=== PATIENT | female | born 1975 | race Caucasian/White ===

== ENCOUNTER → 2016-04-08 | Outpatient (CLI) | payer SELFPAY ==
[~2016-04-08] MED LIST: CYCL10TA9 PO; FLUO40CA PO; GABA-488 PO; HYDR-2890 PO; HYDR-757 PO; IBUP800T26 PO; MELO-198 PO; NAPR500T PO; PRD20T PO; PRED10TA PO; PRED20TA PO; TRAM50TA2 PO; flexeril PO
--- OUTSIDE RECORDS SUMMARY | 2016-04-08 11:36 | XMS REPORT ---
Author Author JUAN PIERSON [facility] eClinicalWorks Address Unknown Phone Unavailable Care Team Providers Care Billiard Player Name Role Phone JUAN PIERSON CP Unavailable Allergies No Known Allergies Problems Problem Type Condition Code Onset Dates Condition Status Problem Unspecified backache 724.5 Active Problem Other chronic pain 338.29 Active Problem Unspecified episodic mood disorder 296.90 Active Problem Unspecified constipation 564.00 Active Problem Acquired cyst of kidney 593.2 Active Problem Cervicalgia 723.1 Active Problem Lumbago 724.2 Active Problem Cyst of thyroid 246.2 Active Medications Medication Code System Code Instructions Start Date End Date Status Dosage Adderall [facility] [address]-65 20 MG Orally twice a day Dec 23, 2014 1 tablet Results No Known Results Summary Purpose eClinicalWorks Submission
--- NOTE | 2016-04-08 12:27 | Diagnostic Imaging Report ---
CLINICAL INDICATION: Patient states she has history of cervical spine pain. Recently has increased cervical spine pain and pain shooting into both hands. EXAM: MRI of the cervical spine performed without IV contrast. Sequences include sagittal T2, sagittal T1, sagittal T2 fat-sat, and axial T2. COMPARISON: CT scan of the cervical spine dated 05/26/2015. FINDINGS: Limited visualization of the posterior fossa is unremarkable. Cervical spinal cord has normal anatomic appearance and signal. The cervical spine has normal alignment with no acute fracture or dislocation. The cervical vertebrae have normal T1-T2 signal. There are again seen small anterior disc spurs at the C3-C6 levels. C1-C2: There are mildly hypertrophic spurs involving the atlanto-odontoid interval anteriorly. C2-C3: There is a small posterior disc bulge and mild right facet arthropathy. There is no significant central spinal canal or neuroforaminal narrowing. There is mild ligamentum flavum buckling. C3-C4: There is a small anterior disc bulge. C4-C5: There is a small anterior disc protrusion/herniation and small posterior disc bulge. There is no significant central spinal canal or neuroforaminal narrowing. C5-C6: There is a mild diffuse disc bulge with bilateral uncinate spurs and small to moderate sized posterior disc osteophyte complex. There is mild to moderate central canal narrowing. There is mild to moderate bilateral neuroforaminal narrowing. C6-C7: There is a small central posterior disc protrusion/herniation. There is no significant central spinal canal or neuroforaminal narrowing. C7-T1: Unremarkable. IMPRESSION: 1: There is multilevel cervical spine degenerative disc disease, described in detail above. 2: There is a C5-C6 diffuse disc bulge, uncinate spurs, and posterior disc osteophyte complex which causes mild to moderate central canal narrowing and mild to moderate bilateral neuroforaminal narrowing. Dictated by: Dictated on workstation # [id number]
== END ==
LOC: RAD 11:32
PROVIDERS: ATTEND Nurse Practitioner Community Health
DX: M50.30 Other cervical disc degeneration, unspecified cervical region (principal)
CPT/HCPCS: 72141

== ENCOUNTER 2017-11-30 12:53 | Emergency (ER) | payer SELFPAY ==
[~2017-11-30] VITALS: Ht 172.7 cm; Wt 86.2 kg
[~2017-11-30 12:53] MED LIST changes: +NAPR-1071 PO; -NAPR500T PO
[2017-11-30] MEDS ORDERED: KETOROLAC 60 MG/2 ML VIAL IM ONE (13:15)
[2017-11-30] MEDS ORDERED: PROCHLORPERAZINE 10 MG/2ML INJ (COMPAZINE) IM ONE (13:15)
[2017-11-30] MEDS ORDERED: diphenhydrAMINE 50 MG/ML INJ (BENADRYL) IM ONE (13:15)
[2017-11-30] MEDS ORDERED: HYDR-4226 PO (13:17)
[2017-11-30] MEDS ORDERED: PRD20T PO (13:17)
--- NOTE | 2017-11-30 13:17 | ED Headache ---
General Chief Complaint: Head/Cervical Problems Stated Complaint: HEADACHE;NECK PAIN Source: patient Exam Limitations: no limitations History of Present Illness Date Seen by Provider: Nov 30, 2017 Time Seen by Provider: 13:12 Initial Comments To ER with reports of headache which is unusual for her. This is frontal in location began about 6:30 AM this morning. She does have associated nausea without vomiting. No fevers or chills. She does have neck pain which is chronic but a bit worse than usual. She reports tingling down both of her arms. No known injury. Timing/Duration: increasing Severity/Quality: constant Location: frontal Prior Headaches/Recent Trauma: no recent headache/trauma Associated Symptoms: nausea/vomiting Allergies and Home Medications Allergies Coded Allergies: No Known Drug Allergies (Unverified , 07/12/13) Home Medications Fluoxetine Hcl 40 Mg Capsule, 40 MG PO HS, (Reported) Hydrocodone/Acetaminophen 1 Each Tablet, 1 EACH PO Q6H PRN for PAIN-MODERATE Prescribed by: DOT FULTON on 11/30/177 Naproxen 500 Mg Tablet, 500 MG PO BID Prescribed by: DOT FULTON on 05/26/152135 Prednisone 20 Mg Tab, 40 MG PO DAILY Prescribed by: DOT FULTON on 11/30/17 1317 [flexeril] , 10 MG PO BID PRN for PAIN Prescribed by: DOT FULTON on 05/26/152135 Patient Home Medication List Home Medication List Reviewed: Yes Review of Systems Review of Systems Constitutional: see HPI; No chills, No fever Eyes: No Symptoms Reported Ears, Nose, Mouth, Throat: no symptoms reported Cardiovascular: no symptoms reported Musculoskeletal: see HPI, neck pain Skin: no symptoms reported Psychiatric/Neurological: See HPI, Headache Past Rksoowj-Kjdsfl-Ufmdib Hx Immunizations Up To Date Tetanus Booster (TDap): More than 5yrs Seasonal Allergies Seasonal Allergies: Yes Past Medical History Adenoidectomy, Tonsillectomy Asthma Reproductive Disorders: No Degenerate Disk Disease, Chronic Back Pain Loss of Vision: Denies Hearing Impairment: Denies Anxiety, Depression Adverse Reaction/Blood Tranf: No Family Medical History Alcoholism 19 MOTHER FH: emphysema 19 MOTHER No Pertinent Family Hx Physical Exam Vital Signs Capillary Refill : Height, Weight, BMI Height: 5'8" Weight: 190lbs. oz. 86.874045ju; 32.61 BMI Method:Stated General Appearance: WD/WN, mild distress (tearful) HEENT: PERRL/EOMI, normal ENT inspection, TMs normal Neck: non-tender, full range of motion Respiratory: normal breath sounds, no respiratory distress, no accessory muscle use Gastrointestinal: normal bowel sounds, non tender Extremities: normal range of motion, non-tender Psychiatric: alert, oriented x 3 Crainal Nerves: normal hearing, normal speech, PERRL Skin: normal color, warm/dry Progress/Results/Core Measures Results/Orders My Orders Orders - DOT FULTON APRN Ketorolac Injection (Toradol Injection) (11/30/17 13:15) Prochlorperazine Injection (Compazine In (11/30/17 13:15) Diphenhydramine Injection (Benadryl Inje (11/30/17 13:15) Ct Head Wo (11/30/17 13:04) Medications Given in ED Current Medications Medications Dose Ordered Sig/Kitty Route Start Time Stop Time Status Last Admin Dose Admin Diphenhydramine HCl 25 mg ONCE ONCE IM 11/30/17 13:15 11/30/17 13:16 DC 11/30/17 13:15 25 MG Ketorolac Tromethamine 60 mg ONCE ONCE IM 11/30/17 13:15 11/30/17 13:16 DC 11/30/17 13:16 60 MG Prochlorperazine Edisylate 10 mg ONCE ONCE IM 11/30/17 13:15 11/30/17 13:16 DC 11/30/17 13:16 10 MG Departure Communication (Admissions) 1400-her headache is down to a 7 out of 10 with occasional sharp spikes in pain that are brief and transient. She feels more relaxed overall. We will discharge to home. She has previously seen Dr. Terrazas from neurology for her neck. I did advise that she should call him today or tomorrow to make an appointment to be seen for follow-up. She agrees with this plan. Impression Primary Impression: Headache Additional Impression: Cervical radiculopathy Disposition: HOME, SELF-CARE Condition: Stable Departure-Patient Inst. Decision time for Depature: 13:15 Referrals: ANTONINO MAGANA DO (PCP) Primary Care Physician MACHO RANDOLPH (Family) Primary Care Physician Patient Instructions: HEADACHE, Radiculopathy Add. Discharge Instructions: 1. Return to ER for any concerns 2. Follow-up with your doctor next week 3. All discharge instructions reviewed with patient and/or family. Voiced understanding. Scripts Prednisone (Prednisone) 20 Mg Tab 40 MG PO DAILY, #8 TAB Prov: DOT FULTON APRN 11/30/17 Hydrocodone/Acetaminophen ([place] 5-325 Tablet) 1 Each Tablet 1 EACH PO Q6H PRN for PAIN-MODERATE MDD 10, #10 TAB Prov: DOT FULTON APRN 11/30/17 Work/School Note: Work Release Form Date Seen in the Emergency Department: Nov 30, 2017 Return to Work: Dec 02, 2017 DOT FULTON APRN Nov 30, 2017 13:17
--- OUTSIDE RECORDS SUMMARY | 2017-11-30 13:21 | XMS REPORT ---
Author Author DAVID GRAHAM Organization eClinicalWorks Address Unknown Phone Unavailable Care Team Providers Care Helicopter Repairer Name Role Phone DAVID GRAHAM CP Unavailable Allergies, Adverse Reactions, Alerts Substance Reaction Event Type N.K.D.A. Info Not Available Non Drug Allergy Problems Problem Type Condition Code Onset Dates Condition Status Problem Unspecified backache 724.5 Active Assessment Attention deficit disorder F90.0 Active Problem Other chronic pain 338.29 Active Problem Unspecified episodic mood disorder 296.90 Active Problem Unspecified constipation 564.00 Active Problem Acquired cyst of kidney 593.2 Active Problem Cervicalgia 723.1 Active Problem Lumbago 724.2 Active Problem Cyst of thyroid 246.2 Active Medications Medication Code System Code Instructions Start Date End Date Status Dosage Cymbalta [facility] [address]-76 60 MG Orally Once a day 1 capsule Adderall [facility] [address]-83 20 MG Orally twice a day Dec 23, 2014 1 tablet Procedures Procedure Coding System Code Date Office Visit, Est Pt., Level 4 CPT-4 34823 Jan 06, 2015 Vital Signs Date/Time: Jan 06, 2015 Cardiac Monitoring Heart Rate 78 bpm Weight 502.65 lbs Height 67 in BMI 78.72 Index Blood Pressure Diastolic 80 mmHg Blood Pressure Systolic 150 mmHg Results No Known Results Summary Purpose eClinicalWorks Submission
--- OUTSIDE RECORDS SUMMARY | 2017-11-30 13:21 | XMS REPORT ---
Author Author [facility] Medical Staff Organization [facility] Address [address] [place], [place] [address] Phone [phone] Care Team Providers Care Actuarial Internship Name Role Phone CHAVO OLIVER MD, PP [phone] CHAVO OLIVER MD, PP [phone] Summary purpose CCDA Sent to [facility] Chief Complaint and Reason for Visit Admit Diagnosis 1 rash behind lt ear Problem list No authorized problems tracked for continuity of care are available for this visit. Encounters No authorized problems tracked for encounter diagnoses are available for this visit. Medications No medications recorded for this patient visit Allergies, adverse reactions, alerts No allergy information is available for this patient. Immunizations No immunizations recorded for this patient visit Relevant diagnostic tests and/or laboratory data No authorized results are available for this patient visit History of procedures Procedure Code Code Type Description Date Performed Performing Physician J0696 CPT-4 CEFTRIAXONE SODIUM INJECTION 10-02-2016 ELISA LONG 66420 CPT-4 CULTURE, BACTERIA, OTHER 10-02-2016 ELISA LONG 00846 CPT-4 EMERGENCY DEPT VISIT 10-02-2016 ELISA LONG 03795 CPT-4 THER/PROPH/DIAG INJ, SC/IM 10-02-2016 ELISA LONG 71917 CPT-4 SMEAR, GRAM STAIN 10-02-2016 ELISA LONG 95701 CPT-4 CULTURE AEROBIC IDENTIFY 10-02-2016 ELISA LONG 35584 CPT-4 MICROBE SUSCEPTIBLE, OSWALDO 10-02-2016 ELISA LONG Functional status No functional or cognitive status observations are available for this visit. Vital signs No authorized vital signs are available for this visit. Social history No Social History or smoking status observations were recorded for this visit. ( Unknown if ever smoked.) Treatment Plan No treatment plan text is available for this visit. Hospital discharge instructions No discharge instruction text is available for this visit.
--- OUTSIDE RECORDS SUMMARY | 2017-11-30 13:21 | XMS REPORT ---
Author Author MACHO RANDOLPH [facility] eClinicalWorks Address Unknown Phone Unavailable Care Team Providers Care Home And Family Living Professor Name Role Phone MACHO RANDOLPH Unavailable Allergies, Adverse Reactions, Alerts Substance Reaction Event Type N.K.D.A. Info Not Available Non Drug Allergy Problems Problem Type Condition Code Onset Dates Condition Status Assessment Low back pain, unspecified back pain laterality, with sciatica presence unspecified M54.5 Active Problem Unspecified backache 724.5 Active Assessment Attention deficit disorder F90.0 Active Problem Other chronic pain 338.29 Active Problem Unspecified episodic mood disorder 296.90 Active Problem Unspecified constipation 564.00 Active Problem Acquired cyst of kidney 593.2 Active Problem Cervicalgia 723.1 Active Problem Lumbago 724.2 Active Problem Cyst of thyroid 246.2 Active Medications Medication Code System Code Instructions Start Date End Date Status Dosage Vyvanse [facility] [address]-79 30 MG Orally Once a day Dec 09, 2014 1 capsule in the morning Cymbalta [facility] [address]-67 60 MG Orally Once a day 1 capsule Procedures Procedure Coding System Code Date Office Visit, Est Pt., Level 3 CPT-4 21028 Dec 09, 2014 Vital Signs Date/Time: Dec 09, 2014 Temperature 98.4 F Weight 230 lbs Height 67 in BMI 36.02 Index Blood Pressure Diastolic 78 mmHg Blood Pressure Systolic 130 mmHg Cardiac Monitoring Heart Rate 70 bpm Results No Known Results Summary Purpose eClinicalWorks Submission
--- OUTSIDE RECORDS SUMMARY | 2017-11-30 13:21 | XMS REPORT ---
Author Author [facility] Medical Staff Organization [facility] Address [address] [place], [place] [address] Phone [phone] Summary purpose CCDA Sent to [facility] Chief Complaint and Reason for Visit No authorized Reason for Visit (Admitting Diagnosis) is available for this visit. Problem list No authorized problems tracked for [...] Code Type Description Date Performed Performing Physician 59604 CPT-4 EMERGENCY DEPT VISIT 10-02-2016 ELISA LONG Functional status No functional [...]
--- OUTSIDE RECORDS SUMMARY | 2017-11-30 13:21 | XMS REPORT ---
Author Author MACHO RANDOLPH [facility] eClinicalWorks Address Unknown Phone Unavailable Care Team Providers Care Heavy Duty Diesel Mechanic Name Role Phone MACHO RANDOLPH CP Unavailable Allergies No Known Allergies Problems Problem Type Condition Code Onset Dates Condition Status Problem Unspecified backache 724.5 Active Problem Other chronic pain 338.29 Active Problem Unspecified episodic mood disorder 296.90 Active Problem Unspecified constipation 564.00 Active Problem Acquired cyst of kidney 593.2 Active Problem Cervicalgia 723.1 Active Problem Lumbago 724.2 Active Problem Cyst of thyroid 246.2 Active Medications No Known Medications Results No Known Results Summary Purpose eClinicalWorks Submission
--- OUTSIDE RECORDS SUMMARY | 2017-11-30 13:22 | XMS REPORT ---
Author Author MACHO RANDOLPH [facility] Address [address] [place] [address] Care Team Providers Care Manufacturer Name Role Phone MACHO RANDOLPH Unavailable PROBLEMS Type Condition ICD9-CM Code [id number] Code Onset Dates Condition Status SNOMED Code Problem Unspecified backache 724.5 Active 814867580 Problem Lumbago with sciatica, right side M54.41 Active 863661662 Problem Lumbago with sciatica, left side M54.42 Active 718573468 Problem Dysthymia F34.1 Active 65388590 Problem Attention deficit hyperactivity disorder (ADHD), unspecified ADHD type F90.9 Active 311902369 Problem Other chronic pain G89.29 Active 96096972 Problem MDD (major depressive disorder), recurrent episode, mild F33.0 Active 31886782 ALLERGIES No Known Allergies SOCIAL HISTORY Never Assessed PLAN OF CARE Activity Details Follow Up 4 Weeks Reason:neck pain VITAL SIGNS Height 67 in 2016-04-04 Weight 226.5 lbs 2016-04-04 Temperature 98.5 degrees Fahrenheit 2016-04-04 Heart Rate 92 bpm 2016-04-04 Respiratory Rate 20 2016-04-04 BMI 35.47 kg/m2 2016-04-04 Blood pressure systolic 140 mmHg 2016-04-04 Blood pressure diastolic 86 mmHg 2016-04-04 MEDICATIONS Medication Instructions Dosage Frequency Start Date End Date Duration Status Baclofen 20 mg Orally every 8 hrs prn 1/2 - 1 tablet with food or milk Mar, Mar, 10 days Active Lyrica 75 MG Orally Twice a day 1 capsule 12h Mar, 30 days Active Cymbalta 60 mg Orally Once a day 2 capsule 24h 30 days Active Adderall 20 mg Orally twice a day 1 tablet 12h Dec, Active RESULTS Name Result Date Reference Range MRI : Cervical w/o Contrast 2016-04-08 PROCEDURES No Known procedures IMMUNIZATIONS No Known Immunizations MEDICAL (GENERAL) HISTORY Type Description Date Medical History constipation Medical History allergic rhinitis Medical History sciatica Medical History chronic pain Medical History mood disorder Medical History menorrhagia Medical History cervical radiculopathy Medical History concussions/head injuries around 11 Surgical History tonsillectomy 1990 Hospitalization History Surgery(s)/Childbirth(s) only
--- OUTSIDE RECORDS SUMMARY | 2017-11-30 13:22 | XMS REPORT ---
Author Author ELISA GÓMEZ eClinicalWorks Address Unknown Phone Unavailable Care Team Providers Care Funeral Driver Name Role Phone ELISA GÓMEZ CP Unavailable Allergies, Adverse Reactions, Alerts Substance Reaction Event Type N.K.D.A. Info Not Available Non Drug Allergy Problems Problem Type Condition Code Onset Dates Condition Status Problem Dysthymia F34.1 Active Problem Unspecified backache 724.5 Active Problem Attention deficit hyperactivity disorder (ADHD), unspecified ADHD type F90.9 Active Assessment Other roasterman (current) drug therapy Z79.899 Active Assessment MDD (major depressive disorder), recurrent episode, mild F33.0 Active Assessment Attention deficit disorder F90.0 Active Medications Medication Code System Code Instructions Start Date End Date Status Dosage Duloxetine HCl [facility] [address]-46 30 MG Orally daily Nov 26, 2015 1 capsule (+ 60mg cap) Adderall [facility] [address]-48 20 mg Orally twice a day Dec 23, 2014 1 tablet Cymbalta [facility] [address]-84 60 mg Orally Once a day 1 capsule Procedures Procedure Coding System Code Date LAB NOT BILLED BY [facility] CPT-4 NOBLL Nov 26, 2015 VENIPUNCT, ROUTINE* CPT-4 09761 Nov 26, 2015 Office Visit, New Pt., Level 3 CPT-4 24028 Nov 26, 2015 Vital Signs Date/Time: Nov 26, 2015 Cardiac Monitoring Heart Rate 84 bpm Weight 228.3 lbs Height 67 in BMI 35.75 Index Blood Pressure Diastolic 83 mmHg Blood Pressure Systolic 123 mmHg Results Name Result Date Reference Range Unit Abnormality Flag CMP ----Calcium, Serum 9.0 63127408 8.7-10.2 mg/dL ----Carbon Dioxide, Total 25 20151126 18-29 mmol/L ----ALT (SGPT) 15 [id number] 0-32 IU/L ----Creatinine, Serum 0.70 20151126 0.57-1.00 mg/dL ----AST (SGOT) 21 [id number] 0-40 IU/L ----eGFR If NonAfricn Am 109 [id number] >59 mL/min/1.73 ----Alkaline Phosphatase, S 69 [id number] 39-117 IU/L ----eGFR If Africn Am 126 [id number] >59 mL/min/1.73 ----Bilirubin, Total 0.3 84821430 0.0-1.2 mg/dL ----BUN/Creatinine Ratio 10 [id number] 8-20 ----A/G Ratio 1.8 [id number] 1.1-2.5 ----Sodium, Serum 142 03333269 134-144 mmol/L ----Globulin, Total 2.3 79829979 1.5-4.5 g/dL ----Potassium, Serum 4.4 71393278 3.5-5.2 mmol/L ----Glucose, Serum 94 34202998 65-99 mg/dL ----Chloride, Serum 103 80465009 97-108 mmol/L ----Albumin, Serum 4.1 58081043 3.5-5.5 g/dL ----BUN 7 [id number] 6-20 mg/dL ----Protein, Total, Serum 6.4 99232071 6.0-8.5 g/dL ROUTINE VENIPUNCTURE LIPID PANEL ----VLDL Cholesterol Aki 21 [id number] 5-40 mg/dL ----LDL Cholesterol Calc 113 [id number] 0-99 mg/dL H ----Triglycerides 103 [id number] 0-149 mg/dL ----HDL Cholesterol 51 49126005 >39 mg/dL ----Cholesterol, Total 185 53743549 100-199 mg/dL Summary Purpose eClinicalWorks Submission
--- OUTSIDE RECORDS SUMMARY | 2017-11-30 13:22 | XMS REPORT ---
Author Author MACHO RANDOLPH Organization eClinicalWorks Address Unknown Phone Unavailable Care Team Providers Care Signalman Name Role Phone MACHO RANDOLPH CP Unavailable Allergies No Known Allergies Problems Problem Type Condition ICD-9 Code Onset Dates Condition Status Problem Unspecified backache 724.5 Active Problem Other chronic pain 338.29 Active Problem Unspecified episodic mood disorder 296.90 Active Problem Unspecified constipation 564.00 Active Problem Acquired cyst of kidney 593.2 Active Problem Cervicalgia 723.1 Active Problem Lumbago 724.2 Active Problem Cyst of thyroid 246.2 Active Medications Medication Code System Code Instructions Start Date End Date Status Dosage Hydrocodone-Acetaminophen [facility] [address]-93 10-325 MG April 28, 2014 take 1 tablet by Oral route every 8 hours as needed for pain Results No Known Results Summary Purpose eClinicalWorks Submission
--- OUTSIDE RECORDS SUMMARY | 2017-11-30 13:22 | XMS REPORT ---
Author Author DAVID GRAHAM Organization eClinicalWorks Address Unknown Phone Unavailable Care Team Providers Care Area Safety Manager Name Role Phone DAVID GRAHAM CP Unavailable [...] Start Date End Date Status Dosage Cymbalta [facility] [address]-54 60 MG Orally Once a day 1 capsule Adderall [facility] [address]-75 20 MG Orally Once a day Dec 23, 2014 1 tablet in the morning Procedures Procedure Coding System Code Date Psych diagnostic evaluation w/medical services, established patient CPT-4 82481 Dec 23, 2014 Vital Signs Date/Time: Dec 23, 2014 Cardiac Monitoring Heart Rate 78 bpm Weight 230.4 lbs Height 67 in BMI 36.08 Index Blood Pressure Diastolic 82 mmHg Blood Pressure Systolic 130 mmHg Results No Known Results Summary Purpose eClinicalWorks Submission
--- OUTSIDE RECORDS SUMMARY | 2017-11-30 13:22 | XMS REPORT ---
Author Author DAVID GRAHAM Organization eClinicalWorks Address Unknown Phone Unavailable Care Team Providers Care Tripe Cooker Name Role Phone DAVID GRAHAM Unavailable Allergies No Known Allergies Problems Problem [...] Start Date End Date Status Dosage Cymbalta [facility] [address]-76 60 MG Orally Once a day 1 capsule Results No Known Results Summary Purpose eClinicalWorks Submission
--- OUTSIDE RECORDS SUMMARY | 2017-11-30 13:22 | XMS REPORT ---
Author Author DAVID GRAHAM Organization eClinicalWorks Address Unknown Phone Unavailable Care Team Providers Care Director Of Collections And Archives Name Role Phone DAVID GRAHAM Unavailable Allergies [...] Start Date End Date Status Dosage Adderall [facility] [address]-26 20 MG Orally twice a day Dec 23, 2014 1 tablet Results No Known Results Summary Purpose eClinicalWorks Submission
--- OUTSIDE RECORDS SUMMARY | 2017-11-30 13:22 | XMS REPORT ---
Author Author DAVID GRAHAM Organization eClinicalWorks Address Unknown Phone Unavailable Care Team Providers Care Produce Service Team Member Name Role Phone DAVID GRAHAM Unavailable Allergies [...] Start Date End Date Status Dosage Adderall [facility] [address]-67 20 MG Orally twice a day Dec 23, 2014 1 tablet Results No Known Results Summary Purpose eClinicalWorks Submission
--- OUTSIDE RECORDS SUMMARY | 2017-11-30 13:22 | XMS REPORT ---
Author Author DAVID GRAHAM Organization eClinicalWorks Address Unknown Phone Unavailable Care Team Providers Care Tennis Racket Repairer Name Role Phone DAVID GRAHAM Unavailable Allergies [...] Start Date End Date Status Dosage Adderall [facility] [address]-10 20 MG Orally twice a day Dec 23, 2014 1 tablet Results No Known Results Summary Purpose eClinicalWorks Submission
--- OUTSIDE RECORDS SUMMARY | 2017-11-30 13:22 | XMS REPORT ---
Author Author MACHO RANDOLPH [facility] eClinicalWorks Address Unknown Phone Unavailable Care Team Providers Care Employee Benefits Insurance Agent Name Role Phone MACHO RANDOLPH CP Unavailable Allergies, Adverse Reactions, Alerts Substance Reaction Event Type N.K.D.A. Info Not Available Non Drug Allergy Problems Problem Type Condition ICD-9 Code Onset Dates Condition Status Assessment Back pain 724.5 Active Problem Unspecified backache 724.5 Active Assessment Irritable bowel syndrome with constipation 564.1 Active Problem Other chronic pain 338.29 Active Problem Unspecified episodic mood disorder 296.90 Active Problem Unspecified constipation 564.00 Active Problem Acquired cyst of kidney 593.2 Active Problem Cervicalgia 723.1 Active Problem Lumbago 724.2 Active Problem Cyst of thyroid 246.2 Active Medications Medication Code System Code Instructions Start Date End Date Status Dosage Amitiza [facility] [address]-11 8 MCG Orally Twice a day #16 and #16 of [facility] Will call with what works the best Oct 07, 2014 1 capsule with food Hydrocodone-Acetaminophen [facility] [address]-43 10-325 MG April 28, 2014 take 1 tablet by Oral route every 8 hours as needed for pain RX to be filled on 09/15/14 Cymbalta [facility] [address]-88 60 MG Orally Once a day 1 capsule Procedures Procedure Coding System Code Date Office Visit, Est Pt., Level 3 CPT-4 60652 Oct 07, 2014 Vital Signs Date/Time: Oct 07, 2014 Temperature 98.0 F Weight 263 lbs Height 67 in BMI 41.19 Index Blood Pressure Diastolic 78 mmHg Blood Pressure Systolic 130 mmHg Cardiac Monitoring Heart Rate 70 bpm Results No Known Results Summary Purpose eClinicalWorks Submission
--- OUTSIDE RECORDS SUMMARY | 2017-11-30 13:23 | XMS REPORT ---
Author Author JOCELYN LYNNE Organization [facility] Address [address] [place] [address] Care Team Providers Care Principal Security Architect Name Role Phone JOCELYN LYNNE Unavailable PROBLEMS Type Condition ICD9-CM Code [id number] Code Onset Dates Condition Status SNOMED Code Problem Dysthymia F34.1 Active 44789178 Problem Other chronic pain G89.29 Active 70570247 Problem MDD (major depressive disorder), recurrent episode, mild F33.0 Active 24649530 Problem Unspecified backache 724.5 Active 016118041 Problem Attention deficit hyperactivity disorder (ADHD), unspecified ADHD type F90.9 Active 692495832 Problem Recurrent major depressive disorder, in partial remission F33.41 Active 62746594 Problem Other chronic pain G89.29 Active 61607230 Problem Lumbago with sciatica, right side M54.41 Active 690510298 Problem Lumbago with sciatica, left side M54.42 Active 346778072 Problem Attention deficit hyperactivity disorder (ADHD), predominantly inattentive type F90.0 Active 43573359 Problem Moderate episode of recurrent major depressive disorder F33.1 Active 715070048 ALLERGIES No Information ENCOUNTERS Encounter Location Date Diagnosis [facility] [id number] [place] [address] Oct, Recurrent major depressive disorder, in partial remission F33.41 [facility] [id number] [address] Sep, [facility] [address], [place] [address] Sep, Recurrent major depressive disorder, in partial remission F33.41 [facility] [address], [place] [address] Sep, [facility] [address] [address] Sep, Moderate episode of recurrent major depressive disorder F33.1 [facility] [address], [place] [address] Aug, [facility] [address], [place] [address] Aug, Recurrent major depressive disorder, in partial remission F33.41 and Attention deficit hyperactivity disorder (ADHD), unspecified ADHD type F90.9 [facility] [address], [place] [address] June, Lumbago with sciatica, right side M54.41 ; Other chronic pain G89.29 ; Attention deficit hyperactivity disorder (ADHD), predominantly inattentive type F90.0 and Cervical neuritis M54.12 [facility] [address], [place] [address] June, Moderate episode of recurrent major depressive disorder F33.1 ; Attention deficit hyperactivity disorder (ADHD), unspecified ADHD type F90.9 and MDD (major depressive disorder), recurrent episode, mild F33.0 [facility] [address], [place] [address] June, [facility] [address], [place] [address] May, [facility] [address] [address] 6[address] Apr, [facility] [address], [place] [address] Mar, [facility] [address], [place] [address] Feb, [facility] [address], [place] [address] Feb, Moderate episode of recurrent major depressive disorder F33.1 and Attention deficit hyperactivity disorder (ADHD), unspecified ADHD type F90.9 [facility] [address], [place] [address] Jan, [facility] [address] [address] Dec, MDD (major depressive disorder), recurrent episode, mild F33.0 [facility] [address], [place] [address] Dec, [facility] [address] [address] Dec, [facility] [address] [place] [address]- [address] Dec, MDD (major depressive disorder), recurrent episode, mild F33.0 and Attention deficit hyperactivity disorder (ADHD), unspecified ADHD type F90.9 [facility] [address], [place] [address] Oct, MDD (major depressive disorder), recurrent episode, mild F33.0 and Attention deficit hyperactivity disorder (ADHD), unspecified ADHD type F90.9 [facility] [address], [place] [address] Aug, Lumbago with sciatica, left side M54.42 ; Lumbago with sciatica, right side M54.41 and Other chronic pain G89.29 [facility] [address], [place] [address] June, Attention deficit hyperactivity disorder (ADHD), unspecified ADHD type F90.9 and MDD (major depressive disorder), recurrent episode, mild F33.0 [facility] [address], [place] [address] June, Attention deficit hyperactivity disorder (ADHD), unspecified ADHD type F90.9 [facility] [id number] [address] 9[address] May, Attention deficit hyperactivity disorder (ADHD), unspecified ADHD type F90.9 [facility] [address], [place] [address] May, Attention deficit hyperactivity disorder (ADHD), unspecified ADHD type F90.9 and MDD (major depressive disorder), recurrent episode, mild F33.0 [facility] [address], [place] [address]- [address] Apr, MDD (major depressive disorder), recurrent episode, mild F33.0 [facility] [id number] [place] [address]- 7[address] Apr, MDD (major depressive disorder), recurrent episode, mild F33.0 [facility] [id number] [place] [address]- 1874 Mar, MDD (major depressive disorder), recurrent episode, mild F33.0 [facility] [id number] [place] [address]- 8[address] Mar, Cervicalgia M54.2 ; Radiculopathy of cervical region M54.12 ; Lumbago with sciatica, left side M54.42 ; Lumbago with sciatica, right side M54.41 and Other chronic pain G89.29 [facility] [address] [place] [address]- [address] 07 Mar, 2016 MDD (major depressive disorder), recurrent episode, mild F33.0 and Attention deficit disorder F90.0 [facility] [address] [place] [address]- 5571 Mar, [facility] [address] [place] [address]- 7465 Feb, [facility] [id number] [place] [address]- 9221 Jan, [facility] [address], [place] [address]- [address] Dec, [facility] [id number] [place] [address]- [address] Dec, [facility] [address], [place] [address]- [address] Nov, MDD (major depressive disorder), recurrent episode, mild F33.0 ; Attention deficit disorder F90.0 and Other alf (current) drug therapy Z79.899 [facility] [address], [place] [address] Oct, [facility] [id number] [place] [address]- 7135 Oct, [facility] [id number] [place] [address]- 4762 Sep, Attention deficit hyperactivity disorder (ADHD), unspecified ADHD type F90.9 [facility] [address], [place] [address] Jul, Attention deficit hyperactivity disorder (ADHD), unspecified ADHD type F90.9 [facility] [address], [place] [address]- 4[address] Jul, Attention deficit hyperactivity disorder (ADHD), unspecified ADHD type F90.9 ; Dysthymia F34.1 ; Abnormal weight gain R63.5 and Family history of heart disease Z82.49 [facility] [address], [place] [address]- 66[address] May, [facility] [address] [place] [address] Apr, [facility] [address], [place] [address]- 6[address] Mar, [facility] [id number], [place] [address] Feb, [facility] [address], [place] [address]- 2846 Jan, [facility] [id number] [place] [address] 279[address]- 3827 Jan, [facility] [address] [place] [address]- 0151 Dec, [facility] [id number] [place] [address] 98[address]- 1354 Dec, Attention deficit disorder F90.0 [facility] [id number] [place] [address]- 3524 Dec, Attention deficit disorder F90.0 [facility] [id number] [place] [address] 32[address]- 9406 Nov, [facility] [id number] [place] [address] 522459- 3971 Nov, Attention deficit disorder F90.0 and Low back pain, unspecified back pain laterality, with sciatica presence unspecified M54.5 [facility] [id number] [place] [address] 74[address]- 2066 Sep, [facility] [id number] [place] [address] 29870- 9093 Sep, Irritable bowel syndrome with constipation 564.1 and Back pain 724.5 [facility] [id number] [place] [address] 425545- 2602 Aug, [facility] [id number] [place] [address] 99969- 6623 Aug, [facility] [id number] [place] [address] 02769- 7148 Jul, [facility] [id number] [place] [address] 665231- 4509 Jul, [facility] [id number] [place] [address] 37166- 8176 June, [facility] [address] [place] [address] 21710- 2827 June, [facility] [id number] [place] [address] [place] [address]- 9205 14 May, 2014 [facility] [place] [facility] [address] [id number] [place] [address]- 9804 13 May, 2014 [facility] [place] [facility] [address] [id number] [place] [address]- 2291 26 Apr, 2014 [facility] [place] [facility] [address] [id number] [place] [address]- 4632 26 Apr, 2014 [facility] [place] [facility] [address] [id number] [place] [address]- 9466 19 Apr, 2014 [facility] [place] [facility] [address] [id number] [place] [address]- 8001 19 Apr, 2014 [facility] [place] [facility] [address] [id number] [place] [address]- 9207 17 Apr, 2014 [facility] [place] [facility] [address] [id number] [place] [address]- 0821 17 Apr, 2014 [facility] [place] [facility] [address] [id number] [place] [address]- 2184 17 Apr, 2014 [facility] [place] [facility] [address] [id number] [place] [address]- 7965 17 Apr, 2014 [facility] [place] [facility] [address] [id number] [place] [address]- 8023 16 Apr, 2014 [facility] [place] [facility] [address] [id number] [place] [address]- 4455 16 Apr, 2014 [facility] [place] [facility] [address] [id number] [place] [address]- 7948 14 Apr, 2014 [facility] [place] [facility] [address] [id number] [place] [address]- 3223 14 Apr, 2014 [facility] [place] [facility] [address] [id number] [place] [address]- 2868 09 Apr, 2014 [facility] [place] [facility] [address] [id number] [place] [address]- 5295 09 Apr, 2014 [facility] [place] [facility] [address] [id number] [place] [address]- 6102 09 Apr, 2014 [facility] [place] [facility] [address] [id number] [place] [address]- 9910 Apr, 2014 [facility] [place] [facility] [address] [id number] [place] [address]- 9203 Apr, 2014 [facility] [place] [facility] [address] [id number] [place] [address]- 2688 Apr, 2014 [facility] [place] [facility] [address] [id number] [place] [address]- 0011 Mar, 2014 [facility] [place] [facility] [address] [id number] [place] [address]- 9926 Mar, 2014 [facility] [place] [facility] [address] [facility] [id number] [place] [address]- 5106 Mar, 2014 [facility] [place] [facility] [address] [id number] [place] [address]- 2294 24 Mar, 2014 [facility] [place] [facility] [address] [id number] [place] [address]- 2803 Mar, 2014 [facility] [place] [facility] [address] [facility] [id number] [place] [address]- 5083 Mar, 2014 [facility] [place] [facility] [address] [facility] [id number] [place] [address]- 2904 18 Mar, 2014 [facility] [place] [facility] [address] [id number] [place] [address]- 3717 18 Mar, 2014 [facility] [place] [facility] [address] [id number] [place] [address]- 6940 17 Mar, 2014 [facility] [place] [facility] [address] [id number] [place] [address]- 6201 14 Mar, 2014 [facility] [place] [facility] [address] [facility] [id number] [place] [address]- 6180 14 Mar, 2014 [facility] [place] [facility] [address] [id number] [place] [address]- 5680 Mar, [facility] [address] [id number] [place] [address]- 8739 Mar, [facility] [address] [id number] [place] [address]- 8304 Feb, [facility] [address] [id number] [place] [address]- 2887 Feb, [facility] [place] [facility] [address] [id number] [place] [address]- 8406 Feb, [facility] [address] [id number] [place] [address]- 7749 Feb, [facility] [address] [facility] [id number] [place] [address]- 0674 Jan, [facility] [address] [facility] [id number] [place] [address]- 9911 Jan, [facility] [address] [facility] [id number] [place] [address]- 4852 Jan, [facility] [place] [facility] [address] [facility] [id number] [place] [address]- 6998 Jan, [facility] [address] [facility] [id number] [place] [address]- 1854 Dec, [facility] [place] [facility] [address] [id number] [place] [address]- 2404 Dec, [facility] [place] [facility] [address] [id number] [place] [address]- 5232 Nov, [facility] [place] [facility] [address] [id number] [place] [address]- 7136 Nov, [facility] [place] [facility] [address] [facility] [id number] [place] [address]- 3420 Oct, [facility] [place] [facility] [address] [id number] [place] [address]- 1554 Oct, [facility] [place] [facility] [address] [id number] [place] [address]- 1703 Oct, [facility] [place] [facility] [address] [id number] [place] [address]- 6273 Oct, [facility] [place] [facility] [address] [id number] [place] [address]- 2415 Sep, [facility] [place] [facility] [address] [id number] [place] [address]- 1619 Sep, [facility] [place] [facility] [address] [id number] [place] [address]- 0063 June, [facility] [place] [facility] [address] [id number] [place] [address]- 3189 June, [facility] [place] [facility] [address] [id number] [place] [address]- 8086 Apr, [facility] [place] [facility] [address] [id number] [place] [address]- 8763 Apr, [facility] [place] [facility] [address] [id number] [place] [address]- 2012 Mar, [facility] [place] [facility] [address] [id number] [place] [address]- 1708 Mar, [facility] [place] [facility] [address] [id number] [place] [address]- 7189 Mar, [facility] [place] [facility] [address] [id number] [place] [address]- 7324 Mar, [facility] [place] [facility] [address] [id number] [place] [address]- 1475 Mar, [facility] [place] [facility] [address] [id number] [place] [address]- 8143 Mar, [facility] [place] [facility] [address] [id number] [place] [address]- 2374 Mar, [facility] [place] [facility] [id number] [address]- 6754 14 Mar, 2013 [facility] [address] [facility] [id number], [place] [address]- 8518 14 Mar, 2013 [facility] [address], [place] [address]- 4623 Mar, [facility] [id number] [address] Mar, [facility] [address], [place] [address]- 2867 Jan, [facility] [address] 9754 Jan, [facility] [address], [place] [address]- 9432 Jan, [facility] [address], [place] [address]- 1615 Jan, [facility] [address], [place] [address]- 8902 Jan, [facility] [id number] [address] Jan, IMMUNIZATIONS No Known Immunizations SOCIAL HISTORY Never Assessed REASON FOR VISIT vyvanse 11/01/2017 PLAN OF CARE VITAL SIGNS MEDICATIONS Medication Instructions Dosage Frequency Start Date End Date Duration Status Vyvanse 30 MG Orally Once a day 1 capsule in the morning 24h Oct, 28 days Active RESULTS No Results PROCEDURES No Known procedures INSTRUCTIONS MEDICATIONS ADMINISTERED No Known Medications MEDICAL (GENERAL) HISTORY Type Description Date Medical History constipation Medical History allergic rhinitis Medical History sciatica Medical History chronic pain Medical History mood disorder Medical History menorrhagia Medical History cervical radiculopathy Medical History concussions/head injuries around 11 Surgical History tonsillectomy 1990 Hospitalization History Surgery(s)/Childbirth(s) only
--- OUTSIDE RECORDS SUMMARY | 2017-11-30 13:23 | XMS REPORT ---
Author Author ELISA Painting Organization [facility] Address [address] [place] [address] Care Team Providers Care Zoning Administrator Name Role Phone Mert ELISA Unavailable PROBLEMS Type Condition ICD9-CM Code [id number] Code Onset Dates Condition Status SNOMED Code Problem Unspecified backache 724.5 Active 375133682 Problem Lumbago with sciatica, right side M54.41 Active 954633390 Problem Lumbago with sciatica, left side M54.42 Active 439490208 Problem Dysthymia F34.1 Active 02660391 Problem Attention deficit hyperactivity disorder (ADHD), unspecified ADHD type F90.9 Active 846949405 Problem Other chronic pain G89.29 Active 36002557 Problem MDD (major depressive disorder), recurrent episode, mild F33.0 Active 83105728 ALLERGIES No Information SOCIAL HISTORY Never Assessed PLAN OF CARE VITAL SIGNS MEDICATIONS Medication Instructions Dosage Frequency Start Date End Date Duration Status Adderall 20 mg Orally twice a day 1 tablet 12h June, 28 days Active RESULTS No Results PROCEDURES No Known procedures IMMUNIZATIONS No Known Immunizations MEDICAL (GENERAL) HISTORY Type Description Date Medical History constipation Medical History allergic rhinitis Medical History sciatica Medical History chronic pain Medical History mood disorder Medical History menorrhagia Medical History cervical radiculopathy Medical History concussions/head injuries around 11 Surgical History tonsillectomy 1990 Hospitalization History Surgery(s)/Childbirth(s) only
--- OUTSIDE RECORDS SUMMARY | 2017-11-30 13:23 | XMS REPORT ---
Author Author ELISA Painting Organization [facility] Address [address] [place] [address] Care Team Providers Care Yoga Coordinator Name Role Phone Mert ELISA Unavailable PROBLEMS Type Condition ICD9-CM Code [id number] Code Onset Dates Condition Status SNOMED Code Problem Unspecified backache 724.5 Active 369079905 Problem Lumbago with sciatica, right side M54.41 Active 772365651 Problem Lumbago with sciatica, left side M54.42 Active 741032900 Problem Dysthymia F34.1 Active 58891257 Problem Attention deficit hyperactivity disorder (ADHD), unspecified ADHD type F90.9 Active 528818382 Problem Other chronic pain G89.29 Active 23096088 Problem MDD (major depressive disorder), recurrent episode, mild F33.0 Active 17112808 ALLERGIES No Information SOCIAL HISTORY Never Assessed PLAN OF CARE VITAL SIGNS MEDICATIONS Medication Instructions Dosage Frequency Start Date End Date Duration Status Adderall 20 mg Orally twice a day 1 tablet 12h Apr, 28 days Active RESULTS No Results PROCEDURES [...]
--- OUTSIDE RECORDS SUMMARY | 2017-11-30 13:24 | XMS REPORT ---
Author Author JOCELYN LYNNE Organization [facility] Address [address] [place] [address] Care Team Providers Care [employer] Helper Name Role Phone JOCELYN LYNNE Unavailable PROBLEMS Type Condition ICD9-CM Code [id number] Code Onset Dates Condition Status SNOMED Code Problem Dysthymia F34.1 Active 08928201 Problem Other chronic pain G89.29 Active 75640501 Problem MDD (major depressive disorder), recurrent episode, mild F33.0 Active 31392181 Problem Unspecified backache 724.5 Active 887457228 Problem Attention deficit hyperactivity disorder (ADHD), unspecified ADHD type F90.9 Active 780156051 Problem Recurrent major depressive disorder, in partial remission F33.41 Active 51265105 Problem Other chronic pain G89.29 Active 46593559 Problem Lumbago with sciatica, right side M54.41 Active 118969275 Problem Lumbago with sciatica, left side M54.42 Active 730999233 Problem Attention deficit hyperactivity disorder (ADHD), predominantly inattentive type F90.0 Active 50957553 Problem Moderate episode of recurrent major depressive disorder F33.1 Active [id number] ALLERGIES No Information ENCOUNTERS Encounter Location Date Diagnosis [facility] [id number] [place] [address]14- [address]44 Sep, [facility] [id number] [address] Sep, Recurrent major depressive disorder, in partial remission F33.41 [facility] [address] [address] Sep, [facility] [id number] [address] Sep, Moderate episode of recurrent major depressive disorder F33.1 [facility] [address] [address] 6[address] Aug, [facility] [id number] [place] [address] 38416- 2453 Aug, Recurrent major depressive disorder, in partial remission F33.41 and Attention deficit hyperactivity disorder (ADHD), unspecified ADHD type F90.9 [facility] [id number] [place] [address] 33053- 2112 June, Lumbago with sciatica, right side M54.41 ; Other chronic pain G89.29 ; Attention deficit hyperactivity disorder (ADHD), predominantly inattentive type F90.0 and Cervical neuritis M54.12 [facility] [id number] [place] [address] 76694- 8479 June, Moderate episode of recurrent major depressive disorder F33.1 ; Attention deficit hyperactivity disorder (ADHD), unspecified ADHD type F90.9 and MDD (major depressive disorder), recurrent episode, mild F33.0 [facility] [address] [address] June, [facility] [id number] [address] 2339 May, [facility] [address] [address] 5235 Apr, [facility] [address] [address] 480[address] Mar, [facility] [address] [address]- 25[address] Feb, [facility] [id number] [address] 08[address] Feb, Moderate episode of recurrent major depressive disorder F33.1 and Attention deficit hyperactivity disorder (ADHD), unspecified ADHD type F90.9 [facility] [address] [address] 8258 Jan, [facility] [address] [address] 2490 Dec, MDD (major depressive disorder), recurrent episode, mild F33.0 [facility] [address] [address] 3025 Dec, [facility] [address] [address] 1626 Dec, [place] [id number] [address] Dec, MDD (major depressive disorder), recurrent episode, mild F33.0 and Attention deficit hyperactivity disorder (ADHD), unspecified ADHD type F90.9 [place] [address] [address] 68[address] Oct, MDD (major depressive disorder), recurrent episode, mild F33.0 and Attention deficit hyperactivity disorder (ADHD), unspecified ADHD type F90.9 [place] [address] [address] Aug, Lumbago with sciatica, left side M54.42 ; Lumbago with sciatica, right side M54.41 and Other chronic pain G89.29 [place] [address] [address] 09[address] June, Attention deficit hyperactivity disorder (ADHD), unspecified ADHD type F90.9 and MDD (major depressive disorder), recurrent episode, mild F33.0 [facility] [id number] [address]- 5010 June, Attention deficit hyperactivity disorder (ADHD), unspecified ADHD type F90.9 [facility] [address] [address] 1385 May, Attention deficit hyperactivity disorder (ADHD), unspecified ADHD type F90.9 [facility] [address] [address]- 8797 May, Attention deficit hyperactivity disorder (ADHD), unspecified ADHD type F90.9 and MDD (major depressive disorder), recurrent episode, mild F33.0 [facility] [address] [address]- 8422 Apr, MDD (major depressive disorder), recurrent episode, mild F33.0 [facility] [address] [address]- 0256 Apr, MDD (major depressive disorder), recurrent episode, mild F33.0 [facility] [id number] [place] [address] 59504- 8318 27 Mar, 2016 MDD (major depressive disorder), recurrent episode, mild F33.0 [facility] [address] [place] [address] 50571- 6976 13 Mar, 2016 Cervicalgia M54.2 ; Radiculopathy of cervical region M54.12 ; Lumbago with sciatica, left side M54.42 ; Lumbago with sciatica, right side M54.41 and Other chronic pain G89.29 [facility] [id number] [place] [address] 65720- 7803 07 Mar, 2016 MDD (major depressive disorder), recurrent episode, mild F33.0 and Attention deficit disorder F90.0 [facility] [address] [address]- 8527 Mar, [facility] [address] [address]- 6646 Feb, [facility] [address], [place] [address]- 9707 Jan, [facility] [id number] [place] [address] 53524- 2456 Dec, [facility] [id number] [address]- 2866 Dec, [facility] [id number] [place] [address] 20201- 6723 Nov, MDD (major depressive disorder), recurrent episode, mild F33.0 ; Attention deficit disorder F90.0 and Other senior living (current) drug therapy Z79.899 [facility] [id number] [place] [address] 98243- 8386 Oct, [facility] [id number] [place] [address] 41854- 2751 Oct, [facility] [id number] [place] [address] 35700- 1786 Sep, Attention deficit hyperactivity disorder (ADHD), unspecified ADHD type F90.9 [facility] [id number] [place] [address] 747939- 0363 Jul, Attention deficit hyperactivity disorder (ADHD), unspecified ADHD type F90.9 [facility] [id number] [place] [address] 43168- 6286 Jul, Attention deficit hyperactivity disorder (ADHD), unspecified ADHD type F90.9 ; Dysthymia F34.1 ; Abnormal weight gain R63.5 and Family history of heart disease Z82.49 [facility] [id number] [place] [address] 98803- 1108 May, [facility] [id number] [address]- 9964 Apr, [facility] [id number] [place] [address] 11394- 6331 Mar, [facility] [address] [address]- 8254 Feb, [facility] [id number] [place] [address] 559827- 3671 Jan, [facility] [id number] 6[address] Jan, [facility] [address] [address]- 0271 Dec, [place] [address] [address]- 1730 Dec, Attention deficit disorder F90.0 [facility] [id number] [place] [address] 169215- 7632 Dec, Attention deficit disorder F90.0 [facility] [id number] [place] [address] 40385- 3190 Nov, [facility] [id number] [place] [address] 712249- 7988 Nov, Attention deficit disorder F90.0 and Low back pain, unspecified back pain laterality, with sciatica presence unspecified M54.5 [facility] [id number] [place] [address] 77636- 7209 Sep, [facility] [id number] [place] [address] 50043- 6899 Sep, Irritable bowel syndrome with constipation 564.1 and Back pain 724.5 [facility] [id number] [place] [address] 11391- 9465 Aug, [facility] [id number] [place] [address] 22334- 2600 Aug, [facility] [address], [place] [address]- 9438 Jul, [facility] [id number] [place] [address] 64407- 2209 Jul, [facility] [id number] [place] [address] 94181- 9458 June, [facility] [id number] [place] [address] 447500- 3074 June, [facility] [address] 7716 May, [facility] [id number] [place] [address] 142218- 4059 May, [facility] [place] [facility] [address] [id number] [place] [address]- 2638 26 Apr, 2014 [facility] [place] [facility] [address] [id number] [place] [address]- 7051 26 Apr, 2014 [facility] [place] [facility] [address] [id number] [place] [address]- 2695 19 Apr, 2014 [facility] [place] [facility] [address] [id number] [place] [address]- 4742 19 Apr, 2014 [facility] [place] [facility] [address] [id number] [place] [address]- 2439 17 Apr, 2014 [facility] [place] [facility] [address] [id number] [place] [address]- 2414 17 Apr, 2014 [facility] [place] [facility] [address] [id number] [place] [address]- 1137 17 Apr, 2014 [facility] [place] [facility] [address] [id number] [place] [address]- 3563 17 Apr, 2014 [facility] [place] [facility] [address] [id number] [place] [address]- 8000 16 Apr, 2014 [facility] [place] [facility] [address] [id number] [place] [address]- 4028 16 Apr, 2014 [facility] [place] [facility] [address] [id number] [place] [address]- 1765 14 Apr, 2014 [facility] [place] [facility] [address] [id number] [place] [address]- 2413 14 Apr, 2014 [facility] [place] [facility] [address] [id number] [place] [address]- 6666 09 Apr, 2014 [facility] [place] [facility] [address] [id number] [place] [address]- 7809 09 Apr, 2014 [facility] [place] [facility] [address] [id number] [place] [address]- 9035 09 Apr, 2014 [facility] [place] [facility] [address] [id number] [place] [address]- 1931 Apr, [facility] [place] [facility] [address] [id number] [place] [address]- 4036 Apr, [facility] [place] [facility] [address] [id number] [place] [address]- 3099 Apr, [facility] [place] [facility] [address] [id number] [place] [address]- 7156 Mar, 2014 [facility] [place] [facility] [address] [id number] [place] [address]- 0202 Mar, 2014 [facility] [place] [facility] [address] [id number] [place] [address]- 4274 Mar, 2014 [facility] [place] [facility] [address] [id number] [place] [address]- 9045 24 Mar, 2014 [facility] [place] [facility] [address] [id number] [place] [address]- 1006 Mar, 2014 [facility] [place] [facility] [address] [id number] [place] [address]- 1229 23 Mar, 2014 [facility] [place] [facility] [address] [id number] [place] [address]- 2505 18 Mar, 2014 [facility] [place] [facility] [address] [facility] [id number] [place] [address]- 2038 18 Mar, 2014 [facility] [place] [facility] [address] [facility] [id number] [place] [address]- 7458 17 Mar, 2014 [facility] [place] [facility] [address] [id number] [place] [address]- 7006 14 Mar, 2014 [facility] [place] [facility] [address] [id number] [place] [address]- 6623 14 Mar, 2014 [facility] [place] [facility] [address] [id number] [place] [address]- 5899 12 Mar, 2014 [facility] [place] [facility] [address] [facility] [id number] [place] [address]- 5568 Mar, [facility] [place] [facility] [address] [id number] [place] 5823 Feb, [facility] [place] [facility] [address] [id number] [place] [address]- 4912 Feb, [facility] [place] [facility] [address] [facility] [id number] [place] [address]- 0902 Feb, [facility] [place] [facility] [address] [id number] [place] [address]- 9443 Feb, [facility] [place] [facility] [address] [id number] [place] [address]- 8065 Jan, [facility] [place] [facility] [address] [facility] [id number] [address]- 4265 Jan, [facility] [place] [facility] [address] [facility] [id number] [place] [address]- 8288 Jan, [facility] [place] [facility] [address] [id number] [address]- 6514 Jan, [facility] [place] [facility] [address] [facility] [id number] [address]- 9249 Dec, [facility] [place] [facility] [address] [facility] [id number] [address]- 2565 Dec, [facility] [place] [facility] [address] [id number], [place] [address]- 1274 Nov, [facility] [place] [facility] [address] [id number], [place] [address]- 2317 Nov, [facility] [place] [facility] [address] [id number], [place] [address]- 1679 Oct, [facility] [place] [facility] [address] [id number], [place] [address]- 7102 Oct, [facility] [place] [facility] [address] [facility] [id number] [address]- 4083 Oct, [facility] [place] [facility] [address] [id number] [place] [address]- 6572 Oct, [facility] [place] [facility] [address] [id number] [place] [address]- 6712 Sep, [facility] [place] [facility] [address] [id number] [place] [address]- 9763 Sep, [facility] [place] [facility] [address] [id number] [place] [address]- 6726 June, [facility] [place] [facility] [address] [id number] [place] [address]- 8469 June, [facility] [place] [facility] [address] [id number] [place] [address]- 2309 Apr, [facility] [place] [facility] [address] [id number] [place] [address]- 3128 Apr, [facility] [place] [facility] [address] [id number] [place] [address]- 4016 Mar, [facility] [place] [facility] [address] [id number] [place] [address]- 0400 Mar, [facility] [place] [facility] [id number] [place] [address]- 4962 Mar, [facility] [place] [facility] [address] [facility] [id number] [place] [address]- 8533 Mar, [facility] [place] [facility] [address] [facility] [id number] [place] [address]- 8726 Mar, [facility] [place] [facility] [address] [id number] [place] [address]- 9140 Mar, [facility] [place] [facility] [address] [id number] [place] [address]- 1496 Mar, [facility] [place] [facility] [address] [facility] [id number] [place] [address]- 7891 14 Mar, 2013 [facility] [place] [facility] [address] [facility] [id number] [place] [address]- 6521 14 Mar, 2013 [facility] [id number] [address]- 4365 Mar, [facility] [id number] [address]- 2085 Mar, [facility] [id number] [address]- 5514 Jan, [facility] [address] [address]- 0803 Jan, [facility] [address], [place] [address]- 1203 Jan, [facility] [address], [place] [address]- 8731 Jan, [facility] [address] [address]- 0553 Jan, [facility] [address] [address]- 3856 Jan, IMMUNIZATIONS No Known Immunizations SOCIAL HISTORY Never Assessed REASON FOR VISIT vyvanse medication PLAN OF CARE VITAL SIGNS MEDICATIONS Unknown Medications RESULTS No Results PROCEDURES No Known procedures [...]
--- OUTSIDE RECORDS SUMMARY | 2017-11-30 13:24 | XMS REPORT ---
Author Author JOCELYN LYNNE Organization [facility] Address [address] [place] [address] Care Team Providers Care Marble Supervisor Name Role Phone JOCELYN LYNNE Unavailable PROBLEMS Type Condition ICD9-CM Code WPD09-SI Code Onset Dates Condition Status SNOMED Code Problem Dysthymia F34.1 Active 04320470 Problem Other chronic pain G89.29 Active 98909248 Problem MDD (major depressive disorder), recurrent episode, mild F33.0 Active 37361924 Problem Unspecified backache 724.5 Active 323425288 Problem Attention deficit hyperactivity disorder (ADHD), unspecified ADHD type F90.9 Active 352571703 Problem Recurrent major depressive disorder, in partial remission F33.41 Active 25510587 Problem Other chronic pain G89.29 Active 99480835 Problem Lumbago with sciatica, right side M54.41 Active 533241866 Problem Lumbago with sciatica, left side M54.42 Active 192163534 Problem Attention deficit hyperactivity disorder (ADHD), predominantly inattentive type F90.0 Active 72222212 Problem Moderate episode of recurrent major depressive disorder F33.1 Active 490793704 ALLERGIES No Known Allergies ENCOUNTERS Encounter Location Date Diagnosis [facility] [id number] [place] [address] 44650- 6522 Sep, [facility] [id number] [place] [address] 24296- 7656 Sep, Recurrent major depressive disorder, in partial remission F33.41 [facility] [id number] [place] [address] 79849- 4088 Sep, [facility] [address] [address] 8567 Sep, Moderate episode of recurrent major depressive disorder F33.1 [facility] [address] [address] 68[address] Aug, [facility] [id number] [place] [address] 87129- 9083 Aug, Recurrent major depressive disorder, in partial remission F33.41 and Attention deficit hyperactivity disorder (ADHD), unspecified ADHD type F90.9 [facility] [id number] [place] [address] 33730- 8861 June, Lumbago with sciatica, right side M54.41 ; Other chronic pain G89.29 ; Attention deficit hyperactivity disorder (ADHD), predominantly inattentive type F90.0 and Cervical neuritis M54.12 [facility] [id number] [place] [address] 59989- 6909 June, Moderate episode of recurrent major depressive disorder F33.1 ; Attention deficit hyperactivity disorder (ADHD), unspecified ADHD type F90.9 and MDD (major depressive disorder), recurrent episode, mild F33.0 [facility] [address] [address] 8591 June, [facility] [id number] [place] [address] 50247- 1725 May, [facility] [id number] [address] 7674 Apr, [facility] [id number] [address] 5889 Mar, [facility] [id number] [address] 9222 Feb, [facility] [id number] [place] [address] 49069- 8737 Feb, Moderate episode of recurrent major depressive disorder F33.1 and Attention deficit hyperactivity disorder (ADHD), unspecified ADHD type F90.9 [facility] [address] [address] 8691 Jan, [facility] [address], [place] [address]- 6982 Dec, MDD (major depressive disorder), recurrent episode, mild F33.0 [facility] [address] [address] 4476 Dec, [facility] [address] [address]- 0648 Dec, [place] [address] [address] 4066 Dec, MDD (major depressive disorder), recurrent episode, mild F33.0 and Attention deficit hyperactivity disorder (ADHD), unspecified ADHD type F90.9 [place] [address] [address]- 6033 Oct, MDD (major depressive disorder), recurrent episode, mild F33.0 and Attention deficit hyperactivity disorder (ADHD), unspecified ADHD type F90.9 [place] [address] [address]- 0655 Aug, Lumbago with sciatica, left side M54.42 ; Lumbago with sciatica, right side M54.41 and Other chronic pain G89.29 [place] [address] [address] 4425 June, Attention deficit hyperactivity disorder (ADHD), unspecified ADHD type F90.9 and MDD (major depressive disorder), recurrent episode, mild F33.0 [facility] [id number] [address] 5150 June, Attention deficit hyperactivity disorder (ADHD), unspecified ADHD type F90.9 [facility] [address], [place] [address]- 6221 May, Attention deficit hyperactivity disorder (ADHD), unspecified ADHD type F90.9 [facility] [id number] [address]- 3944 May, Attention deficit hyperactivity disorder (ADHD), unspecified ADHD type F90.9 and MDD (major depressive disorder), recurrent episode, mild F33.0 [facility] [id number] [place] [address] 11568- 0507 Apr, MDD (major depressive disorder), recurrent episode, mild F33.0 [facility] [id number] [place] [address] 69864- 5546 Apr, MDD (major depressive disorder), recurrent episode, mild F33.0 [facility] [id number] [place] [address] 75138- 8717 Mar, MDD (major depressive disorder), recurrent episode, mild F33.0 [facility] [id number] [place] [address] 61482- 2609 13 Mar, 2016 Cervicalgia M54.2 ; Radiculopathy of cervical region M54.12 ; Lumbago with sciatica, left side M54.42 ; Lumbago with sciatica, right side M54.41 and Other chronic pain G89.29 [facility] [id number] [place] [address] 80845- 8870 Mar, MDD (major depressive disorder), recurrent episode, mild F33.0 and Attention deficit disorder F90.0 [facility] [id number] [place] [address] 36185- 3077 Mar, [facility] [id number] [place] [address] 90934- 5254 Feb, [facility] [id number] [place] [address] 72983- 8998 Jan, [facility] [id number] [place] [address] 25735- 6669 Dec, [facility] [id number] [place] [address] 76208- 5514 Dec, [facility] [id number] [place] [address] 97528- 1475 Nov, MDD (major depressive disorder), recurrent episode, mild F33.0 ; Attention deficit disorder F90.0 and 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 [facility] [id number] [place] [address] 80497- 4856 Oct, [facility] [id number], [place] [address]- 6376 Oct, [facility] [id number] [place] [address] 905490- 5607 Sep, Attention deficit hyperactivity disorder (ADHD), unspecified ADHD type F90.9 [facility] [id number] [place] [address] 55980- 9326 Jul, Attention deficit hyperactivity disorder (ADHD), unspecified ADHD type F90.9 [facility] [id number] [address]- 8786 Jul, Attention deficit hyperactivity disorder (ADHD), unspecified ADHD type F90.9 ; Dysthymia F34.1 ; Abnormal weight gain R63.5 and Family history of heart disease Z82.49 [facility] [id number] [place] [address] 78155- 5216 May, [facility] [address] [address]- 0156 Apr, [facility] [id number], [place] [address]- 4586 Mar, [facility] [address] [address]- 1696 Feb, [facility] [id number] [place] [address] 17961- 2586 Jan, [facility] [id number], [place] [address]- 1396 Jan, [facility] [address] [address]- 6209 Dec, [facility] [address], [place] [address]- 0116 Dec, Attention deficit disorder F90.0 [facility] [id number] [place] [address] 667925- 1152 Dec, Attention deficit disorder F90.0 [facility] [id number] [place] [address] 15021- 7751 Nov, [facility] [id number] [place] [address] 95527- 6314 Nov, Attention deficit disorder F90.0 and Low back pain, unspecified back pain laterality, with sciatica presence unspecified M54.5 [facility] [id number] [place] [address] 06139- 4162 Sep, [facility] [id number] [place] [address] 24933- 6763 Sep, Irritable bowel syndrome with constipation 564.1 and Back pain 724.5 [facility] [id number] [place] [address] 22033- 8861 Aug, [facility] [id number] [place] [address] 11601- 9882 Aug, [facility] [address] [address]- 8794 Jul, [facility] [address] [address]- 9238 Jul, [facility] [address] [address]- 3002 June, [facility] [id number] [place] [address] 733973- 4139 June, [facility] [address] 6791 May, [facility] [id number] [place] [address] 753421- 9450 May, [facility] [place] [facility] [address] [id number] [place] [address]- 9641 26 Apr, 2014 [facility] [place] [facility] [address] [id number] [place] [address]- 9069 26 Apr, 2014 [facility] [place] [facility] [address] [id number] [place] [address]- 6061 19 Apr, 2014 [facility] [place] [facility] [address] [id number] [place] [address]- 9189 19 Apr, 2014 [facility] [place] [facility] [address] [id number] [place] [address]- 1196 17 Apr, 2014 [facility] [place] [facility] [address] [id number] [place] [address]- 0163 17 Apr, 2014 [facility] [place] [facility] [address] [id number] [place] [address]- 6515 17 Apr, 2014 [facility] [place] [facility] [address] [id number] [place] [address]- 1767 17 Apr, 2014 [facility] [place] [facility] [address] [id number] [place] [address]- 6201 16 Apr, 2014 [facility] [place] [facility] [address] [id number] [place] [address]- 9573 16 Apr, 2014 [facility] [place] [facility] [address] [id number] [place] [address]- 2170 14 Apr, 2014 [facility] [place] [facility] [address] [id number] [place] [address]- 0849 14 Apr, 2014 [facility] [place] [facility] [address] [id number] [place] [address]- 7076 09 Apr, 2014 [facility] [place] [facility] [address] [id number] [place] [address]- 6187 09 Apr, 2014 [facility] [place] [facility] [address] [id number] [place] [address]- 8807 09 Apr, 2014 [facility] [place] [facility] [address] [id number] [place] [address]- 7459 Apr, 2014 [facility] [place] [facility] [address] [id number] [place] [address]- 1498 Apr, [facility] [place] [facility] [address] [id number] [place] [address]- 2787 Apr, 2014 [facility] [place] [facility] [address] [facility] [id number] [place] [address]- 8408 Mar, 2014 [facility] [place] [facility] [address] [id number] [place] [address]- 5769 Mar, 2014 [facility] [place] [facility] [address] [id number] [place] [address]- 7229 Mar, 2014 [facility] [place] [facility] [address] [facility] [id number] [place] [address]- 0386 24 Mar, 2014 [facility] [place] [facility] [address] [facility] [id number] [place] [address]- 5053 Mar, 2014 [facility] [place] [facility] [address] [facility] [id number] [place] [address]- 0503 23 Mar, 2014 [facility] [place] [facility] [id number] [place] [address]- 8968 18 Mar, 2014 [facility] [place] [facility] [address] [facility] [id number] [place] [address]- 9644 18 Mar, 2014 [facility] [place] [facility] [address] [facility] [id number] [place] [address]- 8763 17 Mar, 2014 [facility] [place] [facility] [address] [facility] [id number] [place] [address]- 3870 14 Mar, 2014 [facility] [place] [facility] [address] [id number] [place] [address]- 3868 14 Mar, 2014 [facility] [place] [facility] [address] [facility] [id number] [place] [address]- 4221 12 Mar, 2014 [facility] [place] [facility] [address] [facility] [id number] [place] [address]- 9707 Mar, [facility] [place] [facility] [address] [id number] [place] 9802 Feb, [facility] [place] [facility] [address] [id number] [place] [address]- 5883 Feb, [facility] [place] [facility] [address] [facility] [id number] [place] [address]- 3430 Feb, [facility] [place] [facility] [address] [id number] [address]- 7765 Feb, [facility] [place] [facility] [address] [id number] [place] 3794 Jan, [facility] [place] [facility] [address] [id number] [place] 1258 Jan, [facility] [place] [facility] [address] [facility] [id number] [place] [address]- 4436 Jan, [facility] [place] [facility] [address] [id number] [address]- 4149 Jan, [facility] [place] [facility] [address] [id number], [place] [address]- 5281 Dec, [facility] [place] [facility] [address] [id number], [place] [address]- 3727 Dec, [facility] [place] [facility] [address] [id number], [place] [address]- 5722 Nov, [facility] [place] [facility] [address] [id number], [place] [address]- 1050 Nov, [facility] [place] [facility] [address] [id number], [place] [address]- 1606 Oct, [facility] [place] [facility] [address] [id number], [place] [address]- 4821 Oct, [facility] [place] [facility] [address] [facility] [id number], [place] [address]- 0548 Oct, [facility] [place] [facility] [address] [id number] [place] [address]- 3580 Oct, [facility] [place] [facility] [address] [id number] [place] [address]- 1692 Sep, [facility] [place] [facility] [address] [id number] [place] [address]- 0860 Sep, [facility] [place] [facility] [address] [id number] [place] [address]- 5061 June, [facility] [place] [facility] [address] [id number] [place] [address]- 3094 June, [facility] [place] [facility] [address] [id number] [place] 4363 Apr, [facility] [place] [facility] [address] [facility] [id number] [place] [address]- 6391 Apr, [facility] [place] [facility] [address] [id number] [place] [address]- 2291 Mar, [facility] [place] [facility] [address] [id number] [place] [address]- 4141 Mar, [facility] [place] [facility] [id number] [place] [address]- 1500 Mar, [facility] [place] [facility] [id number] [place] [address]- 3752 Mar, [facility] [place] [facility] [address] [id number] [place] [address]- 5845 Mar, [facility] [place] [facility] [address] [id number] [place] [address]- 0790 Mar, [facility] [place] [facility] [address] [id number] [place] [address]- 7574 Mar, [facility] [place] [facility] [address] [id number] [place] [address]- 5753 14 Mar, 2013 [facility] [place] [facility] [address] [facility] [id number], [place] [address]- 3836 Mar, [facility] [id number] [address]- 3625 Mar, [facility] [address] [address]- 1830 Mar, [facility] [id number] [address]- 0202 Jan, [facility] [address] [address]- 2068 Jan, [facility] [id number] [address]- 9403 Jan, [facility] [address] [address]- 0146 Jan, [facility] [address] [address]- 2670 Jan, [facility] [id number] [address]- 9511 Jan, IMMUNIZATIONS No Known Immunizations SOCIAL HISTORY Never Assessed REASON FOR VISIT f/u Berto PLAN OF CARE Activity Details Follow Up 2 Months Reason: VITAL SIGNS Height 67 in 2017-09-04 Weight 210.6 lbs 2017-09-04 Heart Rate 68 bpm 2017-09-04 Respiratory Rate 20 2017-09-04 BMI 32.98 kg/m2 2017-09-04 Blood pressure systolic 128 mmHg 2017-09-04 Blood pressure diastolic 86 mmHg 2017-09-04 MEDICATIONS Medication Instructions Dosage Frequency Start Date End Date Duration Status Gabapentin 300 MG Orally Three times a day 1 capsule 8h June, 30 day(s) Not-Taking Cymbalta 60 mg Orally Once a day in the morning 2 capsule Active Vyvanse 30 MG Orally Once a day 1 capsule in the morning 24h Aug, 28 days Active RESULTS No Results PROCEDURES [...]
--- OUTSIDE RECORDS SUMMARY | 2017-11-30 13:24 | XMS REPORT ---
Author Author JOCELYN LYNNE [facility] Address [address] [place] [address] Care Team Providers Care Youth Accommodation Support Worker Name Role Phone JOCELYN LYNNE Unavailable PROBLEMS Type Condition ICD9-CM Code [id number] Code Onset Dates Condition Status SNOMED Code Problem Dysthymia F34.1 Active 38019621 Problem Other chronic pain G89.29 Active 81217640 Problem MDD (major depressive disorder), recurrent episode, mild F33.0 Active 94420583 Problem Unspecified backache 724.5 Active 089468981 Problem Attention deficit hyperactivity disorder (ADHD), unspecified ADHD type F90.9 Active 537928476 Problem Recurrent major depressive disorder, in partial remission F33.41 Active 60611440 Problem Other chronic pain G89.29 Active 60090024 Problem Lumbago with sciatica, right side M54.41 Active 618006343 Problem Lumbago with sciatica, left side M54.42 Active 561008181 Problem Attention deficit hyperactivity disorder (ADHD), predominantly inattentive type F90.0 Active 21499361 Problem Moderate episode of recurrent major depressive disorder F33.1 Active 095849761 ALLERGIES No Information ENCOUNTERS Encounter Location Date Diagnosis [facility] [id number] [place] [address]- [address]683 Oct, Recurrent major depressive disorder, in partial remission F33.41 [facility] [id number] [address] Sep, [facility] [address] [address] Sep, Recurrent major depressive disorder, in partial remission F33.41 [facility] [id number] [address] Sep, [facility] [address] [address] Sep, Moderate episode of recurrent major depressive disorder F33.1 [facility] [address] [address] Aug, [facility] [address] [address] Aug, Recurrent major depressive disorder, in partial remission F33.41 and Attention deficit hyperactivity disorder (ADHD), unspecified ADHD type F90.9 [facility] [address] [address] June, Lumbago with sciatica, right side M54.41 ; Other chronic pain G89.29 ; Attention deficit hyperactivity disorder (ADHD), predominantly inattentive type F90.0 and Cervical neuritis M54.12 [facility] [address] [address] June, Moderate episode of recurrent major depressive disorder F33.1 ; Attention deficit hyperactivity disorder (ADHD), unspecified ADHD type F90.9 and MDD (major depressive disorder), recurrent episode, mild F33.0 [facility] [address] [address] June, [facility] [address] [address] 87[address] May, [facility] [address] [address] 480[address] Apr, [facility] [address] [address] 0089 Mar, [facility] [address], [place] [address] 8[address] Feb, [facility] [address] [address] 8136 Feb, Moderate episode of recurrent major depressive disorder F33.1 and Attention deficit hyperactivity disorder (ADHD), unspecified ADHD type F90.9 [facility] [address] [address] Jan, [facility] [address] [address] Dec, MDD (major depressive disorder), recurrent episode, mild F33.0 [facility] [address] [address] Dec, [facility] [address] [address] 39[address] Dec, [facility] [id number] [place] [address]- 8708 Dec, MDD (major depressive disorder), recurrent episode, mild F33.0 and Attention deficit hyperactivity disorder (ADHD), unspecified ADHD type F90.9 [facility] [address] [address] Oct, MDD (major depressive disorder), recurrent episode, mild F33.0 and Attention deficit hyperactivity disorder (ADHD), unspecified ADHD type F90.9 [facility] [address] [address] Aug, Lumbago with sciatica, left side M54.42 ; Lumbago with sciatica, right side M54.41 and Other chronic pain G89.29 [facility] [address], [place] [address] June, Attention deficit hyperactivity disorder (ADHD), unspecified ADHD type F90.9 and MDD (major depressive disorder), recurrent episode, mild F33.0 [facility] [address] [address]- [address] June, Attention deficit hyperactivity disorder (ADHD), unspecified ADHD type F90.9 [facility] [id number] [address] 46[address] May, Attention deficit hyperactivity disorder (ADHD), unspecified ADHD type F90.9 [facility] [address] [address]- [address] May, Attention deficit hyperactivity disorder (ADHD), unspecified ADHD type F90.9 and MDD (major depressive disorder), recurrent episode, mild F33.0 [facility] [address] [address]- [address] Apr, MDD (major depressive disorder), recurrent episode, mild F33.0 [facility] [id number] [place] [address]112- 8120 Apr, MDD (major depressive disorder), recurrent episode, mild F33.0 [facility] [id number] [place] [address] 94070- 7650 Mar, MDD (major depressive disorder), recurrent episode, mild F33.0 [facility] [id number] [place] [address] 25932- 7762 Mar, Cervicalgia M54.2 ; Radiculopathy of cervical region M54.12 ; Lumbago with sciatica, left side M54.42 ; Lumbago with sciatica, right side M54.41 and Other chronic pain G89.29 [facility] [address] [place] [address]50- 3988 07 Mar, 2016 MDD (major depressive disorder), recurrent episode, mild F33.0 and Attention deficit disorder F90.0 [facility] [address] [place] [address] 15648- 6791 Mar, [facility] [id number] [place] [address] 49660- 7088 Feb, [facility] [id number] [place] [address] 73212- 3883 Jan, [facility] [address] [address]- 2931 Dec, [facility] [id number] [place] [address] 34596- 9569 Dec, [facility] [address] [address]- [address] Nov, MDD (major depressive disorder), recurrent episode, mild F33.0 ; Attention deficit disorder F90.0 and Other long-term (current) drug therapy Z79.899 [facility] [id number] [address]- [address] Oct, [facility] [id number] [place] [address] 11397- 6542 Oct, [facility] [id number] [place] [address] 02106- 7942 Sep, Attention deficit hyperactivity disorder (ADHD), unspecified ADHD type F90.9 [facility] [id number], [place] [address]- 8247 Jul, Attention deficit hyperactivity disorder (ADHD), unspecified ADHD type F90.9 [facility] [address] [address]- 0370 Jul, Attention deficit hyperactivity disorder (ADHD), unspecified ADHD type F90.9 ; Dysthymia F34.1 ; Abnormal weight gain R63.5 and Family history of heart disease Z82.49 [facility] [address], [place] [address]- 8772 May, [facility] [id number], [place] [address]- 1752 Apr, [facility] [address] [address]- 0146 Mar, [facility] [id number], [place] [address]- 0593 Feb, [facility] [address], [place] [address]- 9263 Jan, [facility] [id number] [place] [address] 97854- 1245 Jan, [facility] [id number] [place] [address] 84876- 9669 Dec, [facility] [id number] [place] [address] 11779- 1211 Dec, Attention deficit disorder F90.0 [facility] [id number] [place] [address] 94768- 6756 Dec, Attention deficit disorder F90.0 [facility] [id number] [place] [address] 02308- 0278 Nov, [facility] [id number] [place] [address] 993270- 4081 Nov, Attention deficit disorder F90.0 and Low back pain, unspecified back pain laterality, with sciatica presence unspecified M54.5 [facility] [id number] [place] [address] 92101- 0661 Sep, [facility] [id number] [place] [address] 74402- 9389 Sep, Irritable bowel syndrome with constipation 564.1 and Back pain 724.5 [facility] [id number] [place] [address] 682682- 5271 Aug, [facility] [id number] [place] [address] 50615- 1270 Aug, [facility] [id number] [place] [address] 00338- 2665 Jul, [facility] [id number] [place] [address] 332367- 9470 Jul, [facility] [id number] [place] [address] 08667- 2666 June, [facility] [id number] [place] [address] 41199- 8354 June, [facility] [id number] [place] [address] [place] [address]- 5247 14 May, 2014 [facility] [place] [facility] [address] [id number] [place] [address]- 3928 13 May, 2014 [facility] [place] [facility] [address] [id number] [place] [address]- 5675 26 Apr, 2014 [facility] [place] [facility] [address] [id number] [place] [address]- 0271 26 Apr, 2014 [facility] [place] [facility] [address] [id number] [place] [address]- 6826 19 Apr, 2014 [facility] [place] [facility] [address] [id number] [place] [address]- 4379 19 Apr, 2014 [facility] [place] [facility] [address] [id number] [place] [address]- 4198 17 Apr, 2014 [facility] [place] [facility] [address] [id number] [place] [address]- 3408 17 Apr, 2014 [facility] [place] [facility] [address] [id number] [place] [address]- 3496 17 Apr, 2014 [facility] [place] [facility] [address] [id number] [place] [address]- 1463 17 Apr, 2014 [facility] [place] [facility] [address] [id number] [place] [address]- 0048 16 Apr, 2014 [facility] [place] [facility] [address] [id number] [place] [address]- 8055 16 Apr, 2014 [facility] [place] [facility] [address] [id number] [place] [address]- 0342 14 Apr, 2014 [facility] [place] [facility] [address] [id number] [place] [address]- 3029 14 Apr, 2014 [facility] [place] [facility] [address] [id number] [place] [address]- 0207 09 Apr, 2014 [facility] [place] [facility] [address] [id number] [place] [address]- 6701 09 Apr, 2014 [facility] [place] [facility] [address] [id number] [place] [address]- 3029 09 Apr, 2014 [facility] [place] [facility] [address] [id number] [place] [address]- 2274 Apr, 2014 [facility] [place] [facility] [address] [id number] [place] [address]- 4404 Apr, 2014 [facility] [place] [facility] [address] [id number] [place] [address]- 2086 Apr, 2014 [facility] [place] [facility] [address] [id number] [place] [address]- 6861 Mar, 2014 [facility] [place] [facility] [address] [id number] [place] [address]- 1911 Mar, 2014 [facility] [place] [facility] [address] [facility] [id number] [place] [address]- 5397 Mar, 2014 [facility] [place] [facility] [address] [id number] [place] [address]- 7202 24 Mar, 2014 [facility] [place] [facility] [address] [id number] [place] [address]- 0502 Mar, 2014 [facility] [place] [facility] [address] [facility] [id number] [place] [address]- 3630 Mar, 2014 [facility] [place] [facility] [address] [facility] [id number] [place] [address]- 5457 18 Mar, 2014 [facility] [place] [facility] [address] [id number] [place] [address]- 8578 18 Mar, 2014 [facility] [place] [facility] [address] [id number] [place] [address]- 5624 17 Mar, 2014 [facility] [place] [facility] [address] [id number] [place] [address]- 2428 14 Mar, 2014 [facility] [place] [facility] [address] [facility] [id number] [place] [address]- 7536 14 Mar, 2014 [facility] [place] [facility] [address] [id number] [place] [address]- 1096 Mar, [facility] [address] [id number] [place] [address]- 3149 Mar, [facility] [address] [id number] [place] [address]- 0298 Feb, [facility] [address] [id number] [place] [address]- 4641 Feb, [facility] [place] [facility] [address] [id number] [place] [address]- 1841 Feb, [facility] [address] [id number] [place] [address]- 1041 Feb, [facility] [address] [facility] [id number] [place] [address]- 1358 Jan, [facility] [address] [facility] [id number] [place] [address]- 7546 Jan, [facility] [address] [facility] [id number] [place] [address]- 5811 Jan, [facility] [place] [facility] [address] [facility] [id number] [place] [address]- 2582 Jan, [facility] [address] [facility] [id number] [place] [address]- 2363 Dec, [facility] [place] [facility] [address] [id number] [place] [address]- 9623 Dec, [facility] [place] [facility] [address] [id number] [place] [address]- 1625 Nov, [facility] [place] [facility] [address] [id number] [place] [address]- 2646 Nov, [facility] [place] [facility] [address] [facility] [id number] [place] [address]- 5887 Oct, [facility] [place] [facility] [address] [id number] [place] [address]- 9073 Oct, [facility] [place] [facility] [address] [id number] [place] [address]- 5720 Oct, [facility] [place] [facility] [address] [id number] [place] [address]- 7431 Oct, [facility] [place] [facility] [address] [id number] [place] [address]- 8132 Sep, [facility] [place] [facility] [address] [id number] [place] [address]- 2790 Sep, [facility] [place] [facility] [address] [id number] [place] [address]- 1155 June, [facility] [place] [facility] [address] [id number] [place] [address]- 8454 June, [facility] [place] [facility] [address] [id number] [place] [address]- 1213 Apr, [facility] [place] [facility] [address] [id number] [place] [address]- 8468 Apr, [facility] [place] [facility] [address] [id number] [place] [address]- 9065 Mar, [facility] [place] [facility] [address] [id number] [place] [address]- 5592 Mar, [facility] [place] [facility] [address] [id number] [place] [address]- 7514 Mar, [facility] [place] [facility] [address] [id number] [place] [address]- 2676 Mar, [facility] [place] [facility] [address] [id number] [place] [address]- 0605 Mar, [facility] [place] [facility] [address] [id number] [place] [address]- 8067 Mar, [facility] [place] [facility] [address] [id number] [place] [address]- 8412 Mar, [facility] [place] [facility] [id number] [address]- 0315 14 Mar, 2013 [facility] [address] [facility] [id number] [address]- 8480 Mar, [facility] [address] [facility] [id number] [address]- 8803 Mar, [facility] [id number] [address]- 0503 Mar, [facility] [address] [address]- 7743 Jan, [facility] [address] 6934 Jan, [facility] [address] [address]- 8381 Jan, [facility] [address] [address]- 2600 Jan, [facility] [address] [address]- 5660 Jan, [facility] [id number] [address]- 0915 Jan, IMMUNIZATIONS No Known Immunizations SOCIAL HISTORY Never Assessed REASON FOR VISIT PALS-cymbalta PLAN OF CARE VITAL SIGNS MEDICATIONS Medication Instructions Dosage Frequency Start Date End Date Duration Status Cymbalta 60 mg Orally Once a day in the morning 2 capsule 90 days Active RESULTS No Results PROCEDURES No [...]
--- OUTSIDE RECORDS SUMMARY | 2017-11-30 13:25 | XMS REPORT ---
Author Author VANESSA RAMIREZ Organization [facility] Address [address] [place] [address] Care Team Providers Care Tire Service Supervisor Name Role Phone JAMES VANESSA Unavailable PROBLEMS Type Condition ICD9-CM Code [id number] Code Onset Dates Condition Status SNOMED Code Problem Dysthymia F34.1 Active 00741086 Problem Other chronic pain G89.29 Active 93033651 Problem MDD (major depressive disorder), recurrent episode, mild F33.0 Active 48879477 Problem Unspecified backache 724.5 Active 985468097 Problem Attention deficit hyperactivity disorder (ADHD), unspecified ADHD type F90.9 Active 889325567 Problem Recurrent major depressive disorder, in partial remission F33.41 Active 17896803 Problem Other chronic pain G89.29 Active 96133322 Problem Lumbago with sciatica, right side M54.41 Active 966723027 Problem Lumbago with sciatica, left side M54.42 Active 324284208 Problem Attention deficit hyperactivity disorder (ADHD), predominantly inattentive type F90.0 Active 65605562 Problem Moderate episode of recurrent major depressive disorder F33.1 Active 689980511 ALLERGIES No Known Allergies ENCOUNTERS Encounter Location Date Diagnosis [facility] [id number] [address] Sep, Recurrent major depressive disorder, in partial remission F33.41 [facility] [address], [place] [address] Sep, [facility] [address], [place] [address] Sep, Moderate episode of recurrent major depressive disorder F33.1 [facility] [id number], [place] [address] Aug, [facility] [id number] [address] Aug, Recurrent major depressive disorder, in partial remission F33.41 and Attention deficit hyperactivity disorder (ADHD), unspecified ADHD type F90.9 [facility] [address] [place] [address] June, Lumbago with sciatica, right side M54.41 ; Other chronic pain G89.29 ; Attention deficit hyperactivity disorder (ADHD), predominantly inattentive type F90.0 and Cervical neuritis M54.12 [facility] [address], [place] [address] June, Moderate episode of recurrent major depressive disorder F33.1 ; Attention deficit hyperactivity disorder (ADHD), unspecified ADHD type F90.9 and MDD (major depressive disorder), recurrent episode, mild F33.0 [facility] [address], [place] [address] June, [facility] [id number] [place] [address]- 89[address] May, [facility] [id number] [place] [address]- 7130 Apr, [facility] [id number] [address] Mar, [facility] [address], [place] [address] Feb, [facility] [id number] [place] [address]- 2121 Feb, Moderate episode of recurrent major depressive disorder F33.1 and Attention deficit hyperactivity disorder (ADHD), unspecified ADHD type F90.9 [facility] [address], [place] [address] Jan, [facility] [address], [place] [address] Dec, MDD (major depressive disorder), recurrent episode, mild F33.0 [facility] [id number], [place] [address] Dec, [facility] [address], [place] [address] Dec, [facility] [address], [place] [address] Dec, MDD (major depressive disorder), recurrent episode, mild F33.0 and Attention deficit hyperactivity disorder (ADHD), unspecified ADHD type F90.9 [facility] [address], [place] [address] Oct, MDD (major depressive disorder), recurrent episode, mild F33.0 and Attention deficit hyperactivity disorder (ADHD), unspecified ADHD type F90.9 [facility] [address], [place] [address] Aug, Lumbago with sciatica, left side M54.42 ; Lumbago with sciatica, right side M54.41 and Other chronic pain G89.29 [facility] [address], [place] [address] June, Attention deficit hyperactivity disorder (ADHD), unspecified ADHD type F90.9 and MDD (major depressive disorder), recurrent episode, mild F33.0 [facility] [id number], [place] [address] June, Attention deficit hyperactivity disorder (ADHD), unspecified ADHD type F90.9 [facility] [id number] [address] May, Attention deficit hyperactivity disorder (ADHD), unspecified ADHD type F90.9 [facility] [address], [place] [address] May, Attention deficit hyperactivity disorder (ADHD), unspecified ADHD type F90.9 and MDD (major depressive disorder), recurrent episode, mild F33.0 [facility] [id number] [address] Apr, MDD (major depressive disorder), recurrent episode, mild F33.0 [facility] [id number] [place] [address]- 13[address] Apr, MDD (major depressive disorder), recurrent episode, mild F33.0 [facility] [id number] [place] [address]- 7446 Mar, MDD (major depressive disorder), recurrent episode, mild F33.0 [facility] [id number] [place] [address]- 1481 Mar, Cervicalgia M54.2 ; Radiculopathy of cervical region M54.12 ; Lumbago with sciatica, left side M54.42 ; Lumbago with sciatica, right side M54.41 and Other chronic pain G89.29 [facility] [id number] [place] [address] 49[address]- 8340 Mar, MDD (major depressive disorder), recurrent episode, mild F33.0 and Attention deficit disorder F90.0 [facility] [id number] [place] [address] 932[address]- 5502 Mar, [facility] [id number] [place] [address]- 3524 Feb, [facility] [id number] [place] [address] 77[address]- 9458 Jan, [facility] [address] [place] [address] 8[address]- 0415 Dec, [facility] [id number] [place] [address]- 4804 Dec, [facility] [id number] [place] [address] 746[address]- 5702 Nov, MDD (major depressive disorder), recurrent episode, mild F33.0 ; Attention deficit disorder F90.0 and 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 [facility] [address], [place] [address] 98[address] Oct, [facility] [address], [place] [address]- [address] Oct, [facility] [address], [place] [address]- [address] Sep, Attention deficit hyperactivity disorder (ADHD), unspecified ADHD type F90.9 [facility] [address], [place] [address]- [address] Jul, Attention deficit hyperactivity disorder (ADHD), unspecified ADHD type F90.9 [facility] [address], [place] [address]- [address] Jul, Attention deficit hyperactivity disorder (ADHD), unspecified ADHD type F90.9 ; Dysthymia F34.1 ; Abnormal weight gain R63.5 and Family history of heart disease Z82.49 [facility] [address], [place] [address]- [address] May, [facility] [address], [place] [address]- 57[address] Apr, [facility] [address], [place] [address]- 5[address] Mar, [facility] [address], [place] [address]- 5[address] Feb, [facility] [address], [place] [address]- 65[address] Jan, [facility] [address], [place] [address]- 0[address] Jan, [facility] [address], [place] [address]- 4[address] Dec, [facility] [address], [place] [address]- 6773 Dec, Attention deficit disorder F90.0 [facility] [address] Dec, Attention deficit disorder F90.0 [facility] [id number] [place] [address] 495965- 6399 Nov, [facility] [id number] [place] [address] 951325- 2535 Nov, Attention deficit disorder F90.0 and Low back pain, unspecified back pain laterality, with sciatica presence unspecified M54.5 [facility] [id number] [place] [address] 05134- 1849 Sep, [facility] [id number] [place] [address] 38[address]- 8088 Sep, Irritable bowel syndrome with constipation 564.1 and Back pain 724.5 [facility] [id number] [place] [address] 37749- 2902 Aug, [facility] [id number] [place] [address] 63417- 8591 Aug, [facility] [id number] [place] [address] 001344- 0423 Jul, [facility] [address], [place] [address]- 36[address] Jul, [facility] [address], [place] [address]- 36[address] June, [facility] [address], [place] [address]- 3[address] June, [facility] [id number] [place] [address] 19606- 3330 May, [facility] [address] [address] May, [facility] [address], [place] [address]- 6023 Apr, [facility] [place] [facility] [address] [id number] [place] [address]- 2054 Apr, [facility] [place] [facility] [address] [id number] [place] [address]- 5496 Apr, [facility] [place] [facility] [address] [id number] [place] [address]- 0608 Apr, [facility] [place] [facility] [address] [id number] [place] [address]- 2126 Apr, 2014 [facility] [place] [facility] [address] [id number] [place] [address]- 5357 17 Apr, 2014 [facility] [place] [facility] [address] [id number] [place] [address]- 8573 Apr, 2014 [facility] [place] [facility] [address] [id number] [place] [address]- 8918 17 Apr, 2014 [facility] [place] [facility] [address] [id number] [place] [address]- 5283 16 Apr, 2014 [facility] [place] [facility] [address] [id number] [place] [address]- 6178 16 Apr, 2014 [facility] [place] [facility] [address] [id number] [place] [address]- 6646 14 Apr, 2014 [facility] [place] [facility] [address] [id number] [place] [address]- 8639 14 Apr, 2014 [facility] [place] [facility] [address] [id number] [place] [address]- 6980 Apr, 2014 [facility] [place] [facility] [address] [id number] [place] [address]- 3757 Apr, 2014 [facility] [place] [facility] [address] [id number] [place] [address]- 3536 Apr, 2014 [facility] [place] [facility] [address] [id number] [place] [address]- 8784 Apr, 2014 [facility] [place] [facility] [address] [id number] [place] [address]- 4263 Apr, [facility] [place] [facility] [address] [facility] [id number] [place] [address]- 1153 Apr, [facility] [place] [facility] [address] [facility] [id number] [place] [address]- 3236 Mar, 2014 [facility] [place] [facility] [address] [facility] [id number] [place] [address]- 9006 Mar, 2014 [facility] [place] [facility] [address] [facility] [id number] [place] [address]- 1885 24 Mar, 2014 [facility] [place] [facility] [address] [facility] [id number] [place] [address]- 6577 24 Mar, 2014 [facility] [place] [facility] [address] [facility] [id number] [place] [address]- 1516 Mar, 2014 [facility] [place] [facility] [address] [facility] [id number] [place] [address]- 2944 Mar, 2014 [facility] [place] [facility] [address] [facility] [id number] [place] [address]- 7712 18 Mar, 2014 [facility] [place] [facility] [address] [facility] [id number] [place] [address]- 7208 18 Mar, 2014 [facility] [place] [facility] [address] [facility] [id number] [place] [address]- 9521 17 Mar, 2014 [facility] [place] [facility] [address] [facility] [id number] [place] [address] 2546 14 Mar, 2014 [facility] [place] [facility] [address] [facility] [id number] [place] [address]- 2543 14 Mar, 2014 [facility] [place] [facility] [address] [facility] [id number] [place] [address]- 7218 12 Mar, 2014 [facility] [place] [facility] [address] [facility] [id number] [place] [address]- 1956 11 Mar, 2014 [facility] [place] [facility] [address] [facility] [id number] [place] [address]- 5481 Feb, [facility] [place] [facility] [address] [id number] [place] [address]- 6832 Feb, [facility] [place] [facility] [address] [id number] [place] [address]- 2321 Feb, [facility] [place] [facility] [address] [id number] [place] [address] Feb, [facility] [place] [facility] [address] [id number] [place] [address]- 2676 Jan, [facility] [place] [facility] [address] [id number] [place] [address] Jan, [facility] [place] [facility] [address] [id number] [place] [address]- 7740 Jan, [facility] [place] [facility] [address] [id number] [place] [address]- 4564 Jan, [facility] [place] [facility] [address] [id number] [place] [address]- 7948 Dec, [facility] [place] [facility] [address] [id number] [place] [address]- 7967 Dec, [facility] [place] [facility] [address] [id number], [place] [address]- 3626 Nov, [facility] [place] [facility] [address] [id number], [place] [address]- 4621 Nov, [facility] [place] [facility] [address] [id number], [place] [address]- 2606 Oct, [facility] [place] [facility] [address] [id number] [place] [address]- 9276 Oct, [facility] [place] [facility] [address] [id number] [place] [address]- 0979 Oct, [facility] [place] [facility] [address] [id number] [place] [address]- 2163 Oct, [facility] [place] [facility] [address] [id number] [place] [address]- 5595 Sep, [facility] [place] [facility] [address] [id number] [place] [address]- 3429 Sep, [facility] [place] [facility] [address] [id number] [place] [address]- 4273 June, [facility] [place] [facility] [address] [id number] [place] [address]- 6445 June, [facility] [place] [facility] [address] [id number] [place] [address]- 5164 Apr, [facility] [place] [facility] [address] [id number] [place] [address]- 5451 Apr, [facility] [place] [facility] [address] [id number] [place] [address]- 1540 Mar, [facility] [place] [facility] [address] [id number] [place] [address]- 4615 Mar, [facility] [place] [facility] [address] [id number] [place] [address]- 6886 Mar, [facility] [place] [facility] [address] [id number] [place] [address]- 8357 Mar, [facility] [place] [facility] [address] [facility] [id number] [place] [address]- 6806 Mar, [facility] [place] [facility] [address] [id number] [place] [address]- 4044 Mar, [facility] [place] [facility] [address] [id number] [place] [address]- 2634 24 Mar, 2013 [facility] [place] [facility] [address] [id number] [place] [address]- 2645 14 Mar, 2013 [facility] [place] [facility] [address] [id number] [place] [address]- 9980 14 Mar, 2013 [facility] [place] [facility] [address] [id number] [place] [address]- 1759 Mar, [facility] [address] [facility] [id number] 2635 Mar, [facility] [id number], [place] [address]- 7016 Jan, [facility] [id number], [place] [address]- 7092 Jan, [facility] [address] 2731 Jan, [facility] [id number], [place] [address]- 8117 Jan, [facility] [address] 5646 Jan, [facility] [id number], [place] [address]- 3370 Jan, IMMUNIZATIONS No Known Immunizations SOCIAL HISTORY Never Assessed REASON FOR VISIT back pain, PT also just seen Alisia this morning and changed her Cymbalta and stopped her adderall. PT didnt seem to like that plan and feels like her adderall also helps with her pain-Denny TRIMBLE, PT has been having neck and pain traveling down to her arms and hands going numb PLAN OF CARE VITAL SIGNS Height 67 in 2017-07-19 Weight 216.8 lbs 2017-07-19 Temperature 98.3 degrees Fahrenheit 2017-07-19 Heart Rate 72 bpm 2017-07-19 Respiratory Rate 20 2017-07-19 BMI 33.95 kg/m2 2017-07-19 Blood pressure systolic 145 mmHg 2017-07-19 Blood pressure diastolic 88 mmHg 2017-07-19 MEDICATIONS Medication Instructions Dosage Frequency Start Date End Date Duration Status Cymbalta 60 mg Orally Once a day in the morning 2 capsule Active Adderall 20 mg Orally 2 times a day 1 tablet 12h 16 May, 2017 Not- Taking Gabapentin 300 MG Orally Three times a day 1 capsule 8h 30 Jun, 2017 30 day(s) Active RESULTS No Results PROCEDURES No Known [...]
--- OUTSIDE RECORDS SUMMARY | 2017-11-30 13:25 | XMS REPORT ---
Author Author JOCELYN LYNNE Organization [facility] Address [address] [place] [address] Care Team Providers Care Pnp Name Role Phone MAGED JOCELYN Unavailable PROBLEMS Type Condition ICD9-CM Code ZRO50-XR Code Onset Dates Condition Status SNOMED Code Problem Dysthymia F34.1 Active 20961620 Problem Other chronic pain G89.29 Active 93461278 Problem MDD (major depressive disorder), recurrent episode, mild F33.0 Active 70879319 Problem Unspecified backache 724.5 Active 448453536 Problem Attention deficit hyperactivity disorder (ADHD), unspecified ADHD type F90.9 Active 404656676 Problem Recurrent major depressive disorder, in partial remission F33.41 Active 59969275 Problem Other chronic pain G89.29 Active 04380796 Problem Lumbago with sciatica, right side M54.41 Active 655152022 Problem Lumbago with sciatica, left side M54.42 Active 556832344 Problem Attention deficit hyperactivity disorder (ADHD), predominantly inattentive type F90.0 Active 10771565 Problem Moderate episode of recurrent major depressive disorder F33.1 Active 653779967 ALLERGIES No Information ENCOUNTERS Encounter Location Date Diagnosis [facility] [id number] [address] Aug, [facility] [id number] [address] Aug, Recurrent major depressive disorder, in partial remission F33.41 and Attention deficit hyperactivity disorder (ADHD), unspecified ADHD type F90.9 [facility] [id number], [place] [address] June, Lumbago with sciatica, right side M54.41 ; Other chronic pain G89.29 ; Attention deficit hyperactivity disorder (ADHD), predominantly inattentive type F90.0 and Cervical neuritis M54.12 [facility] [address], [place] [address] June, Moderate episode of recurrent major depressive disorder F33.1 ; Attention deficit hyperactivity disorder (ADHD), unspecified ADHD type F90.9 and MDD (major depressive disorder), recurrent episode, mild F33.0 [facility] [address], [place] [address] June, [facility] [id number], [place] [address] May, [facility] [id number], [place] [address] Apr, [facility] [address], [place] [address] Mar, [facility] [id number], [place] [address] Feb, [facility] [address], [place] [address] Feb, Moderate episode of recurrent major depressive disorder F33.1 and Attention deficit hyperactivity disorder (ADHD), unspecified ADHD type F90.9 [facility] [id number], [place] [address] Jan, [facility] [address], [place] [address] Dec, MDD (major depressive disorder), recurrent episode, mild F33.0 [facility] [id number] [place] [address] Dec, [facility] [id number], [place] [address] Dec, [facility] [id number] [address] Dec, MDD (major depressive disorder), recurrent episode, mild F33.0 and Attention deficit hyperactivity disorder (ADHD), unspecified ADHD type F90.9 [facility] [id number], [place] [address] Oct, MDD (major depressive disorder), recurrent episode, mild F33.0 and Attention deficit hyperactivity disorder (ADHD), unspecified ADHD type F90.9 [facility] [id number], [place] [address] Aug, Lumbago with sciatica, left side M54.42 ; Lumbago with sciatica, right side M54.41 and Other chronic pain G89.29 [facility] [id number] [place] [address] June, Attention deficit hyperactivity disorder (ADHD), unspecified ADHD type F90.9 and MDD (major depressive disorder), recurrent episode, mild F33.0 [facility] [id number], [place] [address] June, Attention deficit hyperactivity disorder (ADHD), unspecified ADHD type F90.9 [facility] [id number] [address] May, Attention deficit hyperactivity disorder (ADHD), unspecified ADHD type F90.9 [facility] [id number], [place] [address] May, Attention deficit hyperactivity disorder (ADHD), unspecified ADHD type F90.9 and MDD (major depressive disorder), recurrent episode, mild F33.0 [facility] [id number], [place] [address] Apr, MDD (major depressive disorder), recurrent episode, mild F33.0 [facility] [id number], [place] [address] Apr, MDD (major depressive disorder), recurrent episode, mild F33.0 [facility] [id number], [place] [address] Mar, MDD (major depressive disorder), recurrent episode, mild F33.0 [facility] [address], [place] [address] 13 Mar, 2016 Cervicalgia M54.2 ; Radiculopathy of cervical region M54.12 ; Lumbago with sciatica, left side M54.42 ; Lumbago with sciatica, right side M54.41 and Other chronic pain G89.29 [facility] [id number] [place] [address]- [address] 07 Mar, 2016 MDD (major depressive disorder), recurrent episode, mild F33.0 and Attention deficit disorder F90.0 [facility] [id number] [place] [address]- 2442 Mar, [facility] [id number] [place] [address]- 2240 Feb, [facility] [id number] [place] [address]- 9208 Jan, [facility] [id number] [place] [address]- 5628 Dec, [facility] [id number] [place] [address]- 0048 Dec, [facility] [id number] [place] [address]- 6[address] Nov, MDD (major depressive disorder), recurrent episode, mild F33.0 ; Attention deficit disorder F90.0 and Other senior living (current) drug therapy Z79.899 [facility] [address], [place] [address] Oct, [facility] [id number] [place] [address]- 5186 Oct, [facility] [id number] [place] [address]- 3293 Sep, Attention deficit hyperactivity disorder (ADHD), unspecified ADHD type F90.9 [facility] [address], [place] [address] Jul, Attention deficit hyperactivity disorder (ADHD), unspecified ADHD type F90.9 [facility] [id number] [place] [address] 291458- 7923 09 Jul, 2015 Attention deficit hyperactivity disorder (ADHD), unspecified ADHD type F90.9 ; Dysthymia F34.1 ; Abnormal weight gain R63.5 and Family history of heart disease Z82.49 [facility] [id number], [place] [address] 16[address] May, [facility] [id number] [place] [address]- 0599 Apr, [facility] [id number] [place] [address]- 8058 Mar, [facility] [id number] [place] [address]- 4501 Feb, [facility] [id number] [place] [address] 85106- 8537 Jan, [facility] [id number] [place] [address] 9[address]- 6591 Jan, [facility] [address], [place] [address]- 94[address] Dec, [facility] [id number] [place] [address]- 9475 Dec, Attention deficit disorder F90.0 [facility] [address], [place] [address] 4627 Dec, Attention deficit disorder F90.0 [facility] [id number] [place] [address]- 3945 Nov, [facility] [address], [place] [address]- [address] Nov, Attention deficit disorder F90.0 and Low back pain, unspecified back pain laterality, with sciatica presence unspecified M54.5 [facility] [id number], [place] [address] Sep, [facility] [id number] [place] [address] 042750- 0852 Sep, Irritable bowel syndrome with constipation 564.1 and Back pain 724.5 [facility] [id number] [place] [address] 62627- 8714 Aug, [facility] [address] [facility] [id number] [place] [address] 83777- 9072 Aug, [facility] [id number] [place] [address] 09397- 4094 Jul, [facility] [id number] [place] [address] 768206- 6017 Jul, [facility] [id number] [place] [address] 39750- 2176 June, [facility] [address], [place] [address]- 0348 June, [facility] [address], [place] [address]- 6258 May, [facility] [address], [place] [address]- 5748 May, [facility] [address], [place] [address]- 1093 Apr, [facility] [address] [facility] [id number] [address] Apr, [facility] [id number] [address] Apr, [facility] [id number] 47[address] Apr, [facility] [id number], [place] [address]- 8202 Apr, [facility] [place] [facility] [address] [id number] [place] [address]- 5433 Apr, [facility] [place] [facility] [address] [id number] [place] [address]- 1826 Apr, [facility] [place] [facility] [address] [id number] [place] [address]- 0088 Apr, [facility] [place] [facility] [address] [id number] [place] [address]- 6422 Apr, [facility] [place] [facility] [address] [id number] [place] [address]- 9783 Apr, [facility] [place] [facility] [address] [id number] [place] [address]- 3180 Apr, [facility] [place] [facility] [address] [id number] [place] [address]- 7929 Apr, [facility] [place] [facility] [address] [id number] [place] [address]- 2826 Apr, [facility] [place] [facility] [address] [id number] [place] [address]- 3548 Apr, [facility] [place] [facility] [address] [facility] [id number] [place] [address]- 5089 Apr, [facility] [place] [facility] [address] [id number] [place] [address]- 7181 Apr, [facility] [place] [facility] [address] [id number] [place] [address]- 2099 Apr, [facility] [place] [facility] [address] [id number] [place] [address]- 9082 Apr, [facility] [place] [facility] [address] [id number] [place] [address]- 1852 Mar, [facility] [place] [facility] [address] [id number] [place] [address]- 6834 Mar, [facility] [place] [facility] [address] [id number] [place] [address]- 7497 24 Mar, 2014 [facility] [place] [facility] [address] [id number] [place] [address]- 4296 Mar, 2014 [facility] [place] [facility] [address] [id number] [place] [address]- 6146 Mar, 2014 [facility] [place] [facility] [address] [id number] [place] [address]- 6155 Mar, 2014 [facility] [place] [facility] [address] [id number] [place] [address]- 3384 Mar, 2014 [facility] [place] [facility] [address] [id number] [place] [address]- 7102 Mar, 2014 [facility] [place] [facility] [address] [facility] [id number] [place] [address]- 0336 17 Mar, 2014 [facility] [place] [facility] [address] [id number] [place] [address]- 4654 14 Mar, 2014 [facility] [place] [facility] [address] [id number] [place] [address]- 9539 Mar, [facility] [place] [facility] [address] [facility] [id number] [place] [address]- 1359 Mar, [facility] [place] [facility] [address] [id number] [place] [address]- 9754 Mar, [facility] [place] [facility] [address] [id number], [place] [address]- 4701 Feb, [facility] [place] [facility] [address] [id number] [place] [address]- 7194 Feb, [facility] [place] [facility] [address] [id number] [place] [address]- 0859 Feb, [facility] [place] [facility] [address] [facility] [id number] [place] [address]- 7326 Feb, [facility] [place] [facility] [address] [id number] [place] [address]- 4896 Jan, [facility] [place] [facility] [address] [id number] [place] [address] Jan, [facility] [place] [facility] [address] [id number] [place] [address]- 2629 Jan, [facility] [place] [facility] [address] [id number] [place] [address]- 0368 Jan, [facility] [place] [facility] [address] [id number] [place] [address]- 9819 Dec, [facility] [place] [facility] [address] [id number] [place] [address]- 5732 Dec, [facility] [place] [facility] [address] [id number] [place] [address]- 3768 Nov, [facility] [place] [facility] [address] [id number] [place] [address]- 3882 Nov, [facility] [place] [facility] [address] [id number] [place] [address]- 5541 Oct, [facility] [place] [facility] [address] [id number] [place] [address]- 5360 Oct, [facility] [place] [facility] [address] [id number] [place] [address]- 5441 Oct, [facility] [place] [facility] [address] [id number] [place] [address]- 0753 Oct, [facility] [place] [facility] [address] [id number] [place] [address]- 6351 Sep, [facility] [place] [facility] [address] [id number] [place] [address]- 9667 Sep, [facility] [place] [facility] [address] [id number] [place] [address]- 1770 June, [facility] [place] [facility] [address] [id number] [place] [address] June, [facility] [place] [facility] [address] [id number] [place] [address]- 2725 Apr, [facility] [place] [facility] [address] [id number] [place] [address]- 0230 Apr, [facility] [place] [facility] [address] [id number] [place] [address]- 2736 Mar, [facility] [place] [facility] [address] [id number] [place] [address]- 9052 Mar, [facility] [place] [facility] [address] [id number] [place] [address]- 6384 Mar, [facility] [place] [facility] [address] [id number] [place] [address]- 0200 Mar, [facility] [place] [facility] [address] [id number] [place] [address]- 9092 Mar, [facility] [place] [facility] [address] [id number] [place] [address]- 8956 Mar, [facility] [place] [facility] [address] [id number] [place] [address]- 8592 Mar, [facility] [place] [facility] [address] [id number] [place] [address]- 5872 Mar, [facility] [place] [facility] [address] [id number] [place] [address]- 0069 Mar, [facility] [place] [facility] [address] [id number] [place] [address]- 7337 Mar, [facility] [place] [facility] [address] [id number] [place] [address]- 2432 Mar, [facility] [place] [facility] [address] [id number] [place] [address]- 5873 Jan, [facility] [place] [facility] [address] [id number] [place] [address]- 5248 Jan, [facility] [place] [facility] [address] [facility] [id number] [place]- 6419 Jan, [facility] [address] [facility] [id number]- 0854 Jan, [facility] [address] [facility] [id number]- 7632 Jan, [facility] [address] [facility] [id number]- [address]236 Jan, IMMUNIZATIONS No Known Immunizations SOCIAL HISTORY Never Assessed REASON FOR VISIT adderall 06/08/2017 PLAN OF CARE VITAL SIGNS MEDICATIONS Medication Instructions Dosage Frequency Start Date End Date Duration Status Adderall 20 mg Orally 2 times a day 1 tablet 12h May, 28 days Active RESULTS No Results PROCEDURES [...]
--- OUTSIDE RECORDS SUMMARY | 2017-11-30 13:26 | XMS REPORT ---
Author Author JOCELYN YLNNE [facility] Address [address] [place] [address] Care Team Providers Care Bridge Teacher Name Role Phone JOCELYN LYNNE Unavailable PROBLEMS Type Condition ICD9-CM Code [id number] Code Onset Dates Condition Status SNOMED Code Problem Dysthymia F34.1 Active 00945677 Problem Other chronic pain G89.29 Active 75682453 Problem MDD (major depressive disorder), recurrent episode, mild F33.0 Active 02725427 Problem Unspecified backache 724.5 Active 773472052 Problem Attention deficit hyperactivity disorder (ADHD), unspecified ADHD type F90.9 Active 613060100 Problem Recurrent major depressive disorder, in partial remission F33.41 Active 62028026 Problem Other chronic pain G89.29 Active 46936322 Problem Lumbago with sciatica, right side M54.41 Active 096346688 Problem Lumbago with sciatica, left side M54.42 Active 671694826 Problem Attention deficit hyperactivity disorder (ADHD), predominantly inattentive type F90.0 Active 67419905 Problem Moderate episode of recurrent major depressive disorder F33.1 Active 178255800 ALLERGIES No Information ENCOUNTERS Encounter Location Date Diagnosis [facility] [id number] [place] [address]- [address]591 Oct, Recurrent major depressive disorder, in partial remission F33.41 [facility] [address] [id number] [address] Sep, [facility] [address] [address] Sep, Recurrent major depressive disorder, in partial remission F33.41 [facility] [address] [id number] [address] Sep, [facility] [address] [address] Sep, Moderate episode of recurrent major depressive disorder F33.1 [facility] [address] [address] 47[address] Aug, [facility] [address] [address] 4426 Aug, Recurrent major depressive disorder, in partial remission F33.41 and Attention deficit hyperactivity disorder (ADHD), unspecified ADHD type F90.9 [facility] [address] [address] June, Lumbago with sciatica, right side M54.41 ; Other chronic pain G89.29 ; Attention deficit hyperactivity disorder (ADHD), predominantly inattentive type F90.0 and Cervical neuritis M54.12 [facility] [address] [address] June, Moderate episode of recurrent major depressive disorder F33.1 ; Attention deficit hyperactivity disorder (ADHD), unspecified ADHD type F90.9 and MDD (major depressive disorder), recurrent episode, mild F33.0 [facility] [address] [address] 7373 June, [facility] [address] [address] 9394 May, [facility] [address] [address] 3768 Apr, [facility] [address] [address] 65[address] Mar, [facility] [address] [address] 7[address] Feb, [facility] [address] [address] 8312 Feb, Moderate episode of recurrent major depressive disorder F33.1 and Attention deficit hyperactivity disorder (ADHD), unspecified ADHD type F90.9 [facility] [address] [address] Jan, [facility] [address] [address] Dec, MDD (major depressive disorder), recurrent episode, mild F33.0 [facility] [address] [address] 7014 Dec, [facility] [address] [address] Dec, [facility] [id number] [place] [address] 75853- 9795 Dec, MDD (major depressive disorder), recurrent episode, mild F33.0 and Attention deficit hyperactivity disorder (ADHD), unspecified ADHD type F90.9 [facility] [address] [address] Oct, MDD (major depressive disorder), recurrent episode, mild F33.0 and Attention deficit hyperactivity disorder (ADHD), unspecified ADHD type F90.9 [facility] [address] [address] 8783 Aug, Lumbago with sciatica, left side M54.42 ; Lumbago with sciatica, right side M54.41 and Other chronic pain G89.29 [facility] [address] [address] 9[address] June, Attention deficit hyperactivity disorder (ADHD), unspecified ADHD type F90.9 and MDD (major depressive disorder), recurrent episode, mild F33.0 [facility] [address] [address]- 2587 June, Attention deficit hyperactivity disorder (ADHD), unspecified ADHD type F90.9 [facility] [id number] [address]- 0521 May, Attention deficit hyperactivity disorder (ADHD), unspecified ADHD type F90.9 [facility] [address] [address]- 5989 May, Attention deficit hyperactivity disorder (ADHD), unspecified ADHD type F90.9 and MDD (major depressive disorder), recurrent episode, mild F33.0 [facility] [address] [address]- 9070 Apr, MDD (major depressive disorder), recurrent episode, mild F33.0 [facility] [id number] [place] [address] 04253- 9797 Apr, MDD (major depressive disorder), recurrent episode, mild F33.0 [facility] [id number] [place] [address] 94256- 5923 Mar, MDD (major depressive disorder), recurrent episode, mild F33.0 [facility] [id number] [place] [address] 93039- 7386 Mar, Cervicalgia M54.2 ; Radiculopathy of cervical region M54.12 ; Lumbago with sciatica, left side M54.42 ; Lumbago with sciatica, right side M54.41 and Other chronic pain G89.29 [facility] [address] [place] [address] 56265- 5215 07 Mar, 2016 MDD (major depressive disorder), recurrent episode, mild F33.0 and Attention deficit disorder F90.0 [facility] [address] [place] [address] 96718- 3721 Mar, [facility] [id number] [place] [address] 40875- 5050 Feb, [facility] [id number] [place] [address] 52548- 3189 Jan, [facility] [address] [address]- 0629 Dec, [facility] [id number] [place] [address] 06300- 7179 Dec, [facility] [address] [address]- 4057 Nov, MDD (major depressive disorder), recurrent episode, mild F33.0 ; Attention deficit disorder F90.0 and Other correction (current) drug therapy Z79.899 [facility] [id number] [address]- 5893 Oct, [facility] [id number] [place] [address] 85975- 0735 Oct, [facility] [id number] [place] [address] 40218- 9748 Sep, Attention deficit hyperactivity disorder (ADHD), unspecified ADHD type F90.9 [facility] [id number] [address]- 9235 Jul, Attention deficit hyperactivity disorder (ADHD), unspecified ADHD type F90.9 [facility] [address] [address]- 7257 Jul, Attention deficit hyperactivity disorder (ADHD), unspecified ADHD type F90.9 ; Dysthymia F34.1 ; Abnormal weight gain R63.5 and Family history of heart disease Z82.49 [facility] [address] [address]- 0471 May, [facility] [id number] [address]- 1885 Apr, [facility] [address] [address]- 2687 Mar, [facility] [id number] [address]- 4097 Feb, [facility] [address] [address]- 2989 Jan, [facility] [id number] [place] [address] 84655- 3967 Jan, [facility] [id number] [place] [address] 74436- 4813 Dec, [facility] [id number] [place] [address] 23922- 4481 Dec, Attention deficit disorder F90.0 [facility] [id number] [place] [address] 93670- 8514 Dec, Attention deficit disorder F90.0 [facility] [id number] [place] [address] 11545- 9067 Nov, [facility] [id number] [place] [address] 425244- 1054 Nov, Attention deficit disorder F90.0 and Low back pain, unspecified back pain laterality, with sciatica presence unspecified M54.5 [facility] [id number] [place] [address] 31931- 3228 Sep, [facility] [id number] [place] [address] 41353- 1224 Sep, Irritable bowel syndrome with constipation 564.1 and Back pain 724.5 [facility] [id number] [place] [address] 999088- 3516 Aug, [facility] [id number] [place] [address] 94572- 2054 Aug, [facility] [id number] [place] [address] 81384- 9357 Jul, [facility] [id number] [place] [address] 876712- 9378 Jul, [facility] [id number] [place] [address] 93161- 1716 June, [facility] [id number] [place] [address] 60919- 9745 June, [facility] [id number] [place] [address] [place] [address]- 9499 14 May, 2014 [facility] [place] [facility] [address] [id number] [place] [address]- 5821 13 May, 2014 [facility] [place] [facility] [address] [id number] [place] [address]- 7014 26 Apr, 2014 [facility] [place] [facility] [address] [id number] [place] [address]- 5217 26 Apr, 2014 [facility] [place] [facility] [address] [id number] [place] [address]- 0525 19 Apr, 2014 [facility] [place] [facility] [address] [id number] [place] [address]- 5787 19 Apr, 2014 [facility] [place] [facility] [address] [id number] [place] [address]- 0846 17 Apr, 2014 [facility] [place] [facility] [address] [id number] [place] [address]- 9342 17 Apr, 2014 [facility] [place] [facility] [address] [id number] [place] [address]- 3308 17 Apr, 2014 [facility] [place] [facility] [address] [id number] [place] [address]- 3271 17 Apr, 2014 [facility] [place] [facility] [address] [id number] [place] [address]- 0343 16 Apr, 2014 [facility] [place] [facility] [address] [id number] [place] [address]- 0412 16 Apr, 2014 [facility] [place] [facility] [address] [id number] [place] [address]- 9307 14 Apr, 2014 [facility] [place] [facility] [address] [id number] [place] [address]- 9577 14 Apr, 2014 [facility] [place] [facility] [address] [id number] [place] [address]- 6262 09 Apr, 2014 [facility] [place] [facility] [address] [id number] [place] [address]- 7625 09 Apr, 2014 [facility] [place] [facility] [address] [id number] [place] [address]- 3030 09 Apr, 2014 [facility] [place] [facility] [address] [id number] [place] [address]- 5035 Apr, 2014 [facility] [place] [facility] [address] [id number] [place] [address]- 7524 Apr, 2014 [facility] [place] [facility] [address] [id number] [place] [address]- 6783 Apr, 2014 [facility] [place] [facility] [address] [id number] [place] [address]- 5206 Mar, 2014 [facility] [place] [facility] [address] [id number] [place] [address]- 1030 Mar, 2014 [facility] [place] [facility] [address] [facility] [id number] [place] [address]- 6720 Mar, 2014 [facility] [place] [facility] [address] [id number] [place] [address]- 2760 24 Mar, 2014 [facility] [place] [facility] [address] [id number] [place] [address]- 3736 Mar, 2014 [facility] [place] [facility] [address] [facility] [id number] [place] [address]- 4508 Mar, 2014 [facility] [place] [facility] [address] [facility] [id number] [place] [address]- 1829 18 Mar, 2014 [facility] [place] [facility] [address] [id number] [place] [address]- 4411 18 Mar, 2014 [facility] [place] [facility] [address] [id number] [place] [address]- 7160 17 Mar, 2014 [facility] [place] [facility] [address] [id number] [place] [address]- 5214 14 Mar, 2014 [facility] [place] [facility] [address] [facility] [id number] [place] [address]- 9599 14 Mar, 2014 [facility] [place] [facility] [address] [id number] [place] [address]- 4464 Mar, [facility] [address] [id number] [place] [address]- 3492 Mar, [facility] [address] [id number] [place] [address]- 9307 Feb, [facility] [address] [id number] [place] [address]- 5219 Feb, [facility] [place] [facility] [address] [id number] [place] [address]- 5442 Feb, [facility] [address] [id number] [place] [address]- 5705 Feb, [facility] [address] [facility] [id number] [place] [address]- 6117 Jan, [facility] [address] [facility] [id number] [place] [address]- 6250 Jan, [facility] [address] [facility] [id number] [place] [address]- 5427 Jan, [facility] [place] [facility] [address] [facility] [id number] [place] [address]- 0573 Jan, [facility] [address] [facility] [id number] [place] [address]- 2678 Dec, [facility] [place] [facility] [address] [id number] [place] [address]- 0322 Dec, [facility] [place] [facility] [address] [id number] [place] [address]- 9091 Nov, [facility] [place] [facility] [address] [id number] [place] [address]- 1229 Nov, [facility] [place] [facility] [address] [facility] [id number] [place] [address]- 1069 Oct, [facility] [place] [facility] [address] [id number] [place] [address]- 8037 Oct, [facility] [place] [facility] [address] [id number] [place] [address]- 0127 Oct, [facility] [place] [facility] [address] [id number] [place] [address]- 2268 Oct, [facility] [place] [facility] [address] [id number] [place] [address]- 5128 Sep, [facility] [place] [facility] [address] [id number] [place] [address]- 3886 Sep, [facility] [place] [facility] [address] [id number] [place] [address]- 4642 June, [facility] [place] [facility] [address] [id number] [place] [address]- 7829 June, [facility] [place] [facility] [address] [id number] [place] [address]- 1731 Apr, [facility] [place] [facility] [address] [id number] [place] [address]- 5617 Apr, [facility] [place] [facility] [address] [id number] [place] [address]- 9801 Mar, [facility] [place] [facility] [address] [id number] [place] [address]- 9370 Mar, [facility] [place] [facility] [address] [id number] [place] [address]- 0053 Mar, [facility] [place] [facility] [address] [id number] [place] [address]- 8012 Mar, [facility] [place] [facility] [address] [id number] [place] [address]- 1532 Mar, [facility] [place] [facility] [address] [id number] [place] [address]- 4733 Mar, [facility] [place] [facility] [address] [id number] [place] [address]- 9081 Mar, [facility] [place] [facility] [id number] [address]- 9303 14 Mar, 2013 [facility] [address] [facility] [id number] [address]- 6394 14 Mar, 2013 [facility] [address] [facility] [id number] [address]- 1961 Mar, [facility] [id number] 4441 Mar, [facility] [address] [address]- 3450 Jan, [facility] [address] 6977 Jan, [facility] [address] [address]- 8852 Jan, [facility] [address] [address]- 8082 Jan, [facility] [address] [address]- 3637 Jan, [facility] [id number] 3820 Jan, IMMUNIZATIONS No Known Immunizations SOCIAL HISTORY Never Assessed REASON FOR VISIT vyvanse 10/05/2017 PLAN OF CARE VITAL SIGNS MEDICATIONS Medication Instructions Dosage Frequency Start Date End Date Duration Status Vyvanse 30 MG Orally Once a day 1 capsule in the morning 24h Sep, 28 days Active RESULTS No Results PROCEDURES [...]
--- OUTSIDE RECORDS SUMMARY | 2017-11-30 13:26 | XMS REPORT ---
Author Author JOCELYN LYNNE Organization [facility] Address [address] [place] [address] Care Team Providers Care Manager Beverage Name Role Phone JOCELYN LYNNE Unavailable PROBLEMS Type Condition ICD9-CM Code [id number] Code Onset Dates Condition Status SNOMED Code Problem Dysthymia F34.1 Active 76028929 Problem Other chronic pain G89.29 Active 76742896 Problem MDD (major depressive disorder), recurrent episode, mild F33.0 Active 22144454 Problem Unspecified backache 724.5 Active 177934237 Problem Attention deficit hyperactivity disorder (ADHD), unspecified ADHD type F90.9 Active 414684240 Problem Recurrent major depressive disorder, in partial remission F33.41 Active 65921309 Problem Other chronic pain G89.29 Active 94330922 Problem Lumbago with sciatica, right side M54.41 Active 989894371 Problem Lumbago with sciatica, left side M54.42 Active 134083896 Problem Attention deficit hyperactivity disorder (ADHD), predominantly inattentive type F90.0 Active 19814147 Problem Moderate episode of recurrent major depressive disorder F33.1 Active 340815908 ALLERGIES No Known Allergies ENCOUNTERS Encounter Location Date Diagnosis [facility] [id number] [place] [address] Sep, Recurrent major depressive disorder, in partial remission F33.41 [facility] [id number] [address] Sep, [facility] [id number] [place] [address]- 8151 Sep, Moderate episode of recurrent major depressive disorder F33.1 [facility] [id number] [address] Aug, [facility] [id number] [address] Aug, Recurrent major depressive disorder, in partial remission F33.41 and Attention deficit hyperactivity disorder (ADHD), unspecified ADHD type F90.9 [facility] [id number] [address] June, Lumbago with sciatica, right side M54.41 ; Other chronic pain G89.29 ; Attention deficit hyperactivity disorder (ADHD), predominantly inattentive type F90.0 and Cervical neuritis M54.12 [facility] [id number] [address] June, Moderate episode of recurrent major depressive disorder F33.1 ; Attention deficit hyperactivity disorder (ADHD), unspecified ADHD type F90.9 and MDD (major depressive disorder), recurrent episode, mild F33.0 [facility] [id number] [address] June, [facility] [id number] [address] 7051 May, [facility] [id number] [address]93 Apr, [facility] [id number] [address] 9[address] Mar, [facility] [id number] [address] 6[address] Feb, [facility] [id number] [address] 2545 Feb, Moderate episode of recurrent major depressive disorder F33.1 and Attention deficit hyperactivity disorder (ADHD), unspecified ADHD type F90.9 [facility] [id number] [address] Jan, [facility] [id number] [address]227 Dec, MDD (major depressive disorder), recurrent episode, mild F33.0 [facility] [id number] [address] Dec, [facility] [id number] [address] Dec, [facility] [id number] [address] Dec, MDD (major depressive disorder), recurrent episode, mild F33.0 and Attention deficit hyperactivity disorder (ADHD), unspecified ADHD type F90.9 [facility] [id number] [address] Oct, MDD (major depressive disorder), recurrent episode, mild F33.0 and Attention deficit hyperactivity disorder (ADHD), unspecified ADHD type F90.9 [facility] [id number] [address] Aug, Lumbago with sciatica, left side M54.42 ; Lumbago with sciatica, right side M54.41 and Other chronic pain G89.29 [facility] [id number] [address] June, Attention deficit hyperactivity disorder (ADHD), unspecified ADHD type F90.9 and MDD (major depressive disorder), recurrent episode, mild F33.0 [facility] [id number] [address] June, Attention deficit hyperactivity disorder (ADHD), unspecified ADHD type F90.9 [facility] [id number] [address] May, Attention deficit hyperactivity disorder (ADHD), unspecified ADHD type F90.9 [facility] [id number] [address] May, Attention deficit hyperactivity disorder (ADHD), unspecified ADHD type F90.9 and MDD (major depressive disorder), recurrent episode, mild F33.0 [facility] [id number] [address]- 3127 Apr, MDD (major depressive disorder), recurrent episode, mild F33.0 [facility] [id number] [place] [address]707- 7036 Apr, MDD (major depressive disorder), recurrent episode, mild F33.0 [facility] [id number] [place] [address]- 1986 Mar, MDD (major depressive disorder), recurrent episode, mild F33.0 [facility] [id number] [place] [address] 8[address]- 3002 Mar, Cervicalgia M54.2 ; Radiculopathy of cervical region M54.12 ; Lumbago with sciatica, left side M54.42 ; Lumbago with sciatica, right side M54.41 and Other chronic pain G89.29 [facility] [id number] [place] [address]- 1252 Mar, MDD (major depressive disorder), recurrent episode, mild F33.0 and Attention deficit disorder F90.0 [facility] [id number] [place] [address] 84654- 2500 Mar, [facility] [id number] [address] 27[address] Feb, [facility] [id number], [place] [address]- 7746 Jan, [facility] [id number] [address]- 1678 Dec, [facility] [id number] [place] [address] 19755- 9006 Dec, [facility] [id number], [place] [address]- 49[address] Nov, MDD (major depressive disorder), recurrent episode, mild F33.0 ; Attention deficit disorder F90.0 and Other breaker hand (current) drug therapy Z79.899 [facility] [id number] [address]- 3877 Oct, [facility] [id number] [address]- 3656 Oct, [facility] [id number] [address]- 2547 Sep, Attention deficit hyperactivity disorder (ADHD), unspecified ADHD type F90.9 [facility] [id number], [place] [address]- 1749 Jul, Attention deficit hyperactivity disorder (ADHD), unspecified ADHD type F90.9 [facility] [id number], [place] [address]- 6639 Jul, Attention deficit hyperactivity disorder (ADHD), unspecified ADHD type F90.9 ; Dysthymia F34.1 ; Abnormal weight gain R63.5 and Family history of heart disease Z82.49 [facility] [id number] [address]- 8315 May, [facility] [id number] [address]- 6897 Apr, [facility] [id number] [address]- 2791 Mar, [facility] [id number] [address]- 8695 Feb, [facility] [id number] [address]- 2122 Jan, [facility] [id number] [address]- 2088 Jan, [facility] [id number] [address]- 7285 Dec, [facility] [id number] [address]- 2247 Dec, Attention deficit disorder F90.0 [facility] [id number] [address]- 7853 Dec, Attention deficit disorder F90.0 [facility] [id number] [place] [address]52- 6014 Nov, [facility] [id number] [address] Nov, Attention deficit disorder F90.0 and Low back pain, unspecified back pain laterality, with sciatica presence unspecified M54.5 [facility] [id number] [address]- 6085 Sep, [facility] [id number] [place] [address] 138202- 8237 Sep, Irritable bowel syndrome with constipation 564.1 and Back pain 724.5 [facility] [id number] [place] [address]606- 5046 Aug, [facility] [id number] [place] [address] 94865- 6342 Aug, [facility] [id number] [address] Jul, [facility] [id number], [place] [address]- 3003 Jul, [facility] [id number], [place] [address]- 7914 June, [facility] [id number] [address]- 2062 June, [facility] [id number], [place] [address]- 9518 May, [facility] [id number] [address]- 5406 May, [facility] [id number] [place] [address] 52033- 4040 Apr, [facility] [place] [facility] [address] [id number] [place] [address]- [address]20 26 Apr, 2014 [facility] [place] [facility] [address] [id number] [place] [address]- 2965 19 Apr, 2014 [facility] [place] [facility] [address] [id number] [place] [address]- 3665 19 Apr, 2014 [facility] [place] [facility] [address] [id number] [place] [address]- 6862 17 Apr, 2014 [facility] [place] [facility] [address] [id number] [place] [address]- 9008 17 Apr, 2014 [facility] [place] [facility] [address] [id number] [place] [address]- 1581 17 Apr, 2014 [facility] [place] [facility] [address] [id number] [place] [address]- 1768 17 Apr, 2014 [facility] [place] [facility] [address] [id number] [place] [address]- 2421 16 Apr, 2014 [facility] [place] [facility] [address] [id number] [place] [address]- 0472 16 Apr, 2014 [facility] [place] [facility] [address] [id number] [place] [address]- 9552 14 Apr, 2014 [facility] [place] [facility] [address] [id number] [place] [address]- 4327 14 Apr, 2014 [facility] [place] [facility] [address] [id number], [place] [address]- 6305 09 Apr, 2014 [facility] [place] [facility] [address] [id number] [place] [address]- 8739 Apr, 2014 [facility] [place] [facility] [address] [id number] [place] [address]- 6199 Apr, 2014 [facility] [place] [facility] [address] [id number] [place] [address]- 5668 Apr, 2014 [facility] [place] [facility] [address] [id number] [place] [address]- 2002 Apr, 2014 [facility] [place] [facility] [address] [id number] [place] [address]- 6761 Apr, 2014 [facility] [place] [facility] [address] [id number] [place] [address]- 5430 Mar, 2014 [facility] [place] [facility] [address] [facility] [id number] [place] [address]- 6661 25 Mar, 2014 [facility] [place] [facility] [address] [id number] [place] [address]- 1868 24 Mar, 2014 [facility] [place] [facility] [address] [id number] [place] [address]- 0783 24 Mar, 2014 [facility] [place] [facility] [address] [facility] [id number] [place] [address]- 0630 23 Mar, 2014 [facility] [place] [facility] [id number] [address]- 9151 23 Mar, 2014 [facility] [place] [facility] [address] [facility] [id number] [place] [address]- 6768 18 Mar, 2014 [facility] [place] [facility] [id number] [place] [address]- 9849 18 Mar, 2014 [facility] [place] [facility] [address] [facility] [id number] [place] [address]- 2889 17 Mar, 2014 [facility] [place] [facility] [address] [facility] [id number] [place] [address]- 6509 14 Mar, 2014 [facility] [place] [facility] [address] [facility] [id number] [place] [address]- 7853 14 Mar, 2014 [facility] [place] [facility] [address] [facility] [id number] [place] [address]- 6775 12 Mar, 2014 [facility] [place] [facility] [address] [facility] [id number] [place] [address]- 8626 11 Mar, 2014 [facility] [place] [facility] [address] [address]- 3502 Feb, [facility] [place] [facility] [address] [id number] [place] [address]- 1346 Feb, [facility] [place] [facility] [address] [id number] [place] [address]- 6247 Feb, [facility] [place] [facility] [address] [facility] [id number] [place] [address]- 7027 Feb, [facility] [place] [facility] [address] [id number], [place] [address]- 4180 Jan, [facility] [place] [facility] [address] [id number] [place] [address]- 9027 Jan, [facility] [place] [facility] [address] [id number] [place] [address]- 4411 Jan, [facility] [place] [facility] [address] [facility] [id number] [place] [address]- 7980 Jan, [facility] [place] [facility] [address] [id number], [place] [address]- 6337 Dec, [facility] [place] [facility] [address] [id number], [place] [address]- 0836 Dec, [facility] [place] [facility] [address] [id number] [place] [address]- 3561 Nov, [facility] [place] [facility] [address] [id number], [place] [address]- 1971 Nov, [facility] [place] [facility] [address] [id number], [place] [address]- 0490 Oct, [facility] [place] [facility] [address] [id number] [place] [address]- 0305 Oct, [facility] [place] [facility] [address] [facility] [id number] 4558 Oct, [facility] [place] [facility] [address] [id number], [place] [address]- 2891 Oct, [facility] [place] [facility] [address] [id number] [place] [address]- 8355 Sep, [facility] [place] [facility] [address] [id number] [place] [address]- 9509 Sep, [facility] [place] [facility] [address] [id number] [place] [address]- 3956 June, [facility] [place] [facility] [address] [id number] [place] [address]- 0554 June, [facility] [place] [facility] [address] [id number] [place] [address]- 2047 Apr, [facility] [place] [facility] [address] [id number] [place] [address]- 7453 Apr, [facility] [place] [facility] [address] [facility] [id number] [place] [address]- 8288 Mar, [facility] [place] [facility] [address] [id number] [place] [address]- 0548 Mar, [facility] [place] [facility] [address] [id number] [place] [address]- 5198 Mar, [facility] [place] [facility] [address] [facility] [id number] [place] [address]- 8367 Mar, [facility] [place] [facility] [address] [facility] [id number] [place] [address]- 2731 Mar, [facility] [place] [facility] [address] [facility] [id number] [place] [address]- 7023 Mar, [facility] [place] [facility] [address] [id number] [place] [address]- 3389 Mar, [facility] [place] [facility] [address] [facility] [id number] [place] [address]- 8552 Mar, [facility] [place] [facility] [address] [facility] [id number] [place] [address]- 4960 14 Mar, 2013 [facility] [place] [facility] [address] [facility] [id number], [place] [address]- 0093 Mar, [facility] [id number] 9589 Mar, [facility] [address] [facility] [id number][place]- 3[address] Jan, [facility] [id number] [address]- 3332 Jan, [facility] [id number] 1609 Jan, [facility] [id number] 2561 Jan, [facility] [address] 3224 Jan, [facility] [id number], [place] [address]- 6986 Jan, IMMUNIZATIONS No Known Immunizations SOCIAL HISTORY Never Assessed REASON FOR VISIT amy/karel Carr MA , contract PLAN OF CARE Activity Details Follow Up 4 Weeks, prn Reason: VITAL SIGNS Height 67 in 2017-07-19 Weight 216.8 lbs 2017-07-19 Heart Rate 72 bpm 2017-07-19 Respiratory Rate 20 2017-07-19 BMI 33.95 kg/m2 2017-07-19 Blood pressure systolic 145 mmHg 2017-07-19 Blood pressure diastolic 88 mmHg 2017-07-19 MEDICATIONS Medication Instructions Dosage Frequency Start Date End Date Duration Status Adderall 20 mg Orally 2 times a day 1 tablet 12h 16 May, 2017 Active Cymbalta 60 mg Orally Once a day in the morning 2 capsule Active RESULTS No Results PROCEDURES No Known [...]
--- OUTSIDE RECORDS SUMMARY | 2017-11-30 13:26 | XMS REPORT ---
Author Author JOCELYN LYNNE [facility] Address [address] [place] [address] Care Team Providers Care Investor Relations Manager Name Role Phone JOCELYN LYNNE Unavailable PROBLEMS Type Condition ICD9-CM Code [id number] Code Onset Dates Condition Status SNOMED Code Problem Dysthymia F34.1 Active 52638217 Problem Other chronic pain G89.29 Active 89579375 Problem MDD (major depressive disorder), recurrent episode, mild F33.0 Active 70427492 Problem Unspecified backache 724.5 Active 260769812 Problem Attention deficit hyperactivity disorder (ADHD), unspecified ADHD type F90.9 Active 840085012 Problem Recurrent major depressive disorder, in partial remission F33.41 Active 15103106 Problem Other chronic pain G89.29 Active 95995023 Problem Lumbago with sciatica, right side M54.41 Active 484528328 Problem Lumbago with sciatica, left side M54.42 Active 980977894 Problem Attention deficit hyperactivity disorder (ADHD), predominantly inattentive type F90.0 Active 31754560 Problem Moderate episode of recurrent major depressive disorder F33.1 Active [id number] ALLERGIES No Information ENCOUNTERS Encounter Location Date Diagnosis [facility] [id number] [place] [address]20 Oct, Recurrent major depressive disorder, in partial remission F33.41 [facility] [id number] [address] Sep, [facility] [address] [address] Sep, Recurrent major depressive disorder, in partial remission F33.41 [facility] [id number] [address] Sep, [facility] [address] [address] Sep, Moderate episode of recurrent major depressive disorder F33.1 [facility] [address] [address] Aug, [facility] [address] [address] Aug, Recurrent major depressive disorder, in partial remission F33.41 and Attention deficit hyperactivity disorder (ADHD), unspecified ADHD type F90.9 [facility] [address] [address] June, Lumbago with sciatica, right side M54.41 ; Other chronic pain G89.29 ; Attention deficit hyperactivity disorder (ADHD), predominantly inattentive type F90.0 and Cervical neuritis M54.12 [facility] [address] [address] June, Moderate episode of recurrent major depressive disorder F33.1 ; Attention deficit hyperactivity disorder (ADHD), unspecified ADHD type F90.9 and MDD (major depressive disorder), recurrent episode, mild F33.0 [facility] [address] [address] June, [facility] [address] [address] May, [facility] [address] [address] Apr, [facility] [address] [address] Mar, [facility] [address] [address] Feb, [facility] [address] [address] 18[address] Feb, Moderate episode of recurrent major depressive disorder F33.1 and Attention deficit hyperactivity disorder (ADHD), unspecified ADHD type F90.9 [facility] [address] [address] Jan, [facility] [address] [address] Dec, MDD (major depressive disorder), recurrent episode, mild F33.0 [facility] [address] [address] 9966 Dec, [facility] [address] [address] Dec, [facility] [id number] [place] [address]67- 0934 Dec, MDD (major depressive disorder), recurrent episode, mild F33.0 and Attention deficit hyperactivity disorder (ADHD), unspecified ADHD type F90.9 [facility] [address], [place] [address] Oct, MDD (major depressive disorder), recurrent episode, mild F33.0 and Attention deficit hyperactivity disorder (ADHD), unspecified ADHD type F90.9 [facility] [address] [address] Aug, Lumbago with sciatica, left side M54.42 ; Lumbago with sciatica, right side M54.41 and Other chronic pain G89.29 [facility] [address], [place] [address] June, Attention deficit hyperactivity disorder (ADHD), unspecified ADHD type F90.9 and MDD (major depressive disorder), recurrent episode, mild F33.0 [facility] [address], [place] [address] 0[address] June, Attention deficit hyperactivity disorder (ADHD), unspecified ADHD type F90.9 [facility] [id number] [address] 8[address] May, Attention deficit hyperactivity disorder (ADHD), unspecified ADHD type F90.9 [facility] [address], [place] [address] May, Attention deficit hyperactivity disorder (ADHD), unspecified ADHD type F90.9 and MDD (major depressive disorder), recurrent episode, mild F33.0 [facility] [address], [place] [address] Apr, MDD (major depressive disorder), recurrent episode, mild F33.0 [facility] [id number] [place] [address]38- 8204 Apr, MDD (major depressive disorder), recurrent episode, mild F33.0 [facility] [id number] [place] [address] 66189- 1107 Mar, MDD (major depressive disorder), recurrent episode, mild F33.0 [facility] [id number] [place] [address] 73[address]- 2577 Mar, Cervicalgia M54.2 ; Radiculopathy of cervical region M54.12 ; Lumbago with sciatica, left side M54.42 ; Lumbago with sciatica, right side M54.41 and Other chronic pain G89.29 [facility] [id number] [place] [address] 71832- 3500 07 Mar, 2016 MDD (major depressive disorder), recurrent episode, mild F33.0 and Attention deficit disorder F90.0 [facility] [id number] [place] [address] 62739- 1147 Mar, [facility] [id number] [place] [address] 21748- 3377 Feb, [facility] [id number] [place] [address] 96[address]- 2908 Jan, [facility] [address], [place] [address]- 9342 Dec, [facility] [id number] [place] [address] 01537- 0529 Dec, [facility] [address], [place] [address] Nov, MDD (major depressive disorder), recurrent episode, mild F33.0 ; Attention deficit disorder F90.0 and Other assisted (current) drug therapy Z79.899 [facility] [id number], [place] [address]- 0[address] Oct, [facility] [id number] [place] [address] 31717- 4161 Oct, [facility] [id number] [place] [address] 47853- 3166 Sep, Attention deficit hyperactivity disorder (ADHD), unspecified ADHD type F90.9 [facility] [id number], [place] [address]- 2152 Jul, Attention deficit hyperactivity disorder (ADHD), unspecified ADHD type F90.9 [facility] [address], [place] [address]- 9228 Jul, Attention deficit hyperactivity disorder (ADHD), unspecified ADHD type F90.9 ; Dysthymia F34.1 ; Abnormal weight gain R63.5 and Family history of heart disease Z82.49 [facility] [address], [place] [address]- 29[address] May, [facility] [address], [place] [address]- 9585 Apr, [facility] [address], [place] [address]- 7970 Mar, [facility] [address], [place] [address]- 36[address] Feb, [facility] [address], [place] [address]- 5[address] Jan, [facility] [id number] [place] [address] 42807- 9456 Jan, [facility] [id number] [place] [address] 80464- 8102 Dec, [facility] [id number] [place] [address] 85724- 6519 Dec, Attention deficit disorder F90.0 [facility] [id number] [place] [address] 58160- 6223 Dec, Attention deficit disorder F90.0 [facility] [id number] [place] [address] 07981- 8306 Nov, [facility] [id number] [place] [address] 876652- 9848 Nov, Attention deficit disorder F90.0 and Low back pain, unspecified back pain laterality, with sciatica presence unspecified M54.5 [facility] [id number] [place] [address] 83594- 9852 Sep, [facility] [id number] [place] [address] 63453- 1048 Sep, Irritable bowel syndrome with constipation 564.1 and Back pain 724.5 [facility] [id number] [place] [address] 659206- 1011 Aug, [facility] [id number] [place] [address] 14585- 3938 Aug, [facility] [id number] [place] [address] 78580- 0398 Jul, [facility] [id number] [place] [address] 158656- 5408 Jul, [facility] [id number] [place] [address] 53899- 8616 June, [facility] [id number] [place] [address] 72253- 7532 June, [facility] [id number] [place] [address] [place] [address]- 3293 14 May, 2014 [facility] [place] [facility] [address] [id number] [place] [address]- 1385 13 May, 2014 [facility] [place] [facility] [address] [id number] [place] [address]- 7225 26 Apr, 2014 [facility] [place] [facility] [address] [id number] [place] [address]- 4189 26 Apr, 2014 [facility] [place] [facility] [address] [id number] [place] [address]- 1114 19 Apr, 2014 [facility] [place] [facility] [address] [id number] [place] [address]- 8980 19 Apr, 2014 [facility] [place] [facility] [address] [id number] [place] [address]- 2242 17 Apr, 2014 [facility] [place] [facility] [address] [id number] [place] [address]- 4071 17 Apr, 2014 [facility] [place] [facility] [address] [id number] [place] [address]- 2900 17 Apr, 2014 [facility] [place] [facility] [address] [id number] [place] [address]- 7113 17 Apr, 2014 [facility] [place] [facility] [address] [id number] [place] [address]- 9068 16 Apr, 2014 [facility] [place] [facility] [address] [id number] [place] [address]- 4095 16 Apr, 2014 [facility] [place] [facility] [address] [id number] [place] [address]- 7312 14 Apr, 2014 [facility] [place] [facility] [address] [id number] [place] [address]- 2084 14 Apr, 2014 [facility] [place] [facility] [address] [id number] [place] [address]- 7158 09 Apr, 2014 [facility] [place] [facility] [address] [id number] [place] [address]- 8536 09 Apr, 2014 [facility] [place] [facility] [address] [id number] [place] [address]- 3120 09 Apr, 2014 [facility] [place] [facility] [address] [id number] [place] [address]- 0048 Apr, 2014 [facility] [place] [facility] [address] [id number] [place] [address]- 8498 Apr, 2014 [facility] [place] [facility] [address] [id number] [place] [address]- 4788 Apr, 2014 [facility] [place] [facility] [address] [id number] [place] [address]- 9988 Mar, 2014 [facility] [place] [facility] [address] [id number] [place] [address]- 5140 Mar, 2014 [facility] [place] [facility] [address] [facility] [id number] [place] [address]- 3485 Mar, 2014 [facility] [place] [facility] [address] [id number] [place] [address]- 0315 24 Mar, 2014 [facility] [place] [facility] [address] [id number] [place] [address]- 2824 Mar, 2014 [facility] [place] [facility] [address] [facility] [id number] [place] [address]- 8311 Mar, 2014 [facility] [place] [facility] [address] [facility] [id number] [place] [address]- 9585 18 Mar, 2014 [facility] [place] [facility] [address] [id number] [place] [address]- 9539 18 Mar, 2014 [facility] [place] [facility] [address] [id number] [place] [address]- 4884 17 Mar, 2014 [facility] [place] [facility] [address] [id number] [place] [address]- 9926 14 Mar, 2014 [facility] [place] [facility] [address] [facility] [id number] [place] [address]- 5788 14 Mar, 2014 [facility] [place] [facility] [address] [id number] [place] [address]- 0403 Mar, [facility] [address] [id number] [place] [address]- 6719 Mar, [facility] [address] [id number] [place] [address]- 8627 Feb, [facility] [address] [id number] [place] [address]- 5169 Feb, [facility] [place] [facility] [address] [id number] [place] [address]- 2897 Feb, [facility] [address] [id number] [place] [address]- 2885 Feb, [facility] [address] [facility] [id number] [place] [address]- 9606 Jan, [facility] [address] [facility] [id number] [place] [address]- 3180 Jan, [facility] [address] [facility] [id number] [place] [address]- 5553 Jan, [facility] [place] [facility] [address] [facility] [id number] [place] [address]- 3676 Jan, [facility] [address] [facility] [id number] [place] [address]- 6332 Dec, [facility] [place] [facility] [address] [id number] [place] [address]- 5587 Dec, [facility] [place] [facility] [address] [id number] [place] [address]- 4988 Nov, [facility] [place] [facility] [address] [id number] [place] [address]- 2517 Nov, [facility] [place] [facility] [address] [facility] [id number] [place] [address]- 8486 Oct, [facility] [place] [facility] [address] [id number] [place] [address]- 1032 Oct, [facility] [place] [facility] [address] [id number] [place] [address]- 5239 Oct, [facility] [place] [facility] [address] [id number] [place] [address]- 1276 Oct, [facility] [place] [facility] [address] [id number] [place] [address]- 4304 Sep, [facility] [place] [facility] [address] [id number] [place] [address]- 1395 Sep, [facility] [place] [facility] [address] [id number] [place] [address]- 7521 June, [facility] [place] [facility] [address] [id number] [place] [address]- 5610 June, [facility] [place] [facility] [address] [id number] [place] [address]- 6827 Apr, [facility] [place] [facility] [address] [id number] [place] [address]- 3609 Apr, [facility] [place] [facility] [address] [id number] [place] [address]- 3248 Mar, [facility] [place] [facility] [address] [id number] [place] [address]- 5350 Mar, [facility] [place] [facility] [address] [id number] [place] [address]- 5359 Mar, [facility] [place] [facility] [address] [id number] [place] [address]- 7668 Mar, [facility] [place] [facility] [address] [id number] [place] [address]- 9609 Mar, [facility] [place] [facility] [address] [id number] [place] [address]- 7386 Mar, [facility] [place] [facility] [address] [id number] [place] [address]- 1191 Mar, [facility] [place] [facility] [id number], [place] [address]- 2845 14 Mar, 2013 [facility] [address], [place] [address]- 7981 14 Mar, 2013 [facility] [address], [place] [address]- 8681 Mar, [facility] [id number] [address]- 5228 Mar, [facility] [address] [address]- 6173 Jan, [facility] [address], [place] [address]- 7866 Jan, [facility] [address], [place] [address]- 0623 Jan, [facility] [address], [place] [address]- 0698 Jan, [facility] [address], [place] [address]- 2756 Jan, [facility] [address] [address]- 5925 Jan, IMMUNIZATIONS No Known Immunizations SOCIAL HISTORY Never Assessed REASON FOR VISIT Medication refill request PLAN OF CARE VITAL SIGNS MEDICATIONS Unknown [...]
--- OUTSIDE RECORDS SUMMARY | 2017-11-30 13:27 | XMS REPORT ---
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 Name Role Phone JOCELYN LYNNE Unavailable PROBLEMS Type Condition ICD9-CM Code QHQ18-GN Code Onset Dates Condition Status SNOMED Code Problem Dysthymia F34.1 Active 40643228 Problem Other chronic pain G89.29 Active 01096268 Problem MDD (major depressive disorder), recurrent episode, mild F33.0 Active 12819181 Problem Unspecified backache 724.5 Active 922338460 Problem Attention deficit hyperactivity disorder (ADHD), unspecified ADHD type F90.9 Active 411396321 Problem Recurrent major depressive disorder, in partial remission F33.41 Active 75849528 Problem Other chronic pain G89.29 Active 11145107 Problem Lumbago with sciatica, right side M54.41 Active 936790466 Problem Lumbago with sciatica, left side M54.42 Active 906010225 Problem Attention deficit hyperactivity disorder (ADHD), predominantly inattentive type F90.0 Active 80093815 Problem Moderate episode of recurrent major depressive disorder F33.1 Active 242308269 ALLERGIES No Information ENCOUNTERS Encounter Location Date Diagnosis [facility] [id number] [place] [address]39- [address] Oct, Recurrent major depressive disorder, in partial remission F33.41 [facility] [id number] [address] Sep, [facility] [address] [address] Sep, Recurrent major depressive disorder, in partial remission F33.41 [facility] [id number] [address] Sep, [facility] [address] [address] Sep, Moderate episode of recurrent major depressive disorder F33.1 [facility] [address] [address] Aug, [facility] [address] [address] Aug, Recurrent major depressive disorder, in partial remission F33.41 and Attention deficit hyperactivity disorder (ADHD), unspecified ADHD type F90.9 [facility] [address] [address] June, Lumbago with sciatica, right side M54.41 ; Other chronic pain G89.29 ; Attention deficit hyperactivity disorder (ADHD), predominantly inattentive type F90.0 and Cervical neuritis M54.12 [facility] [address] [address] June, Moderate episode of recurrent major depressive disorder F33.1 ; Attention deficit hyperactivity disorder (ADHD), unspecified ADHD type F90.9 and MDD (major depressive disorder), recurrent episode, mild F33.0 [facility] [address] [address] June, [facility] [address] [address] 90[address] May, [facility] [address] [address] Apr, [facility] [address] [address] 94[address] Mar, [facility] [address] [address] Feb, [facility] [address] [address] Feb, Moderate episode of recurrent major depressive disorder F33.1 and Attention deficit hyperactivity disorder (ADHD), unspecified ADHD type F90.9 [facility] [address] [address] Jan, [facility] [address] [address] Dec, MDD (major depressive disorder), recurrent episode, mild F33.0 [facility] [address] [address] 6[address] Dec, [facility] [address] [address] Dec, [facility] [id number] [place] [address]- 95[address] Dec, MDD (major depressive disorder), recurrent episode, mild F33.0 and Attention deficit hyperactivity disorder (ADHD), unspecified ADHD type F90.9 [facility] [address] [address] Oct, MDD (major depressive disorder), recurrent episode, mild F33.0 and Attention deficit hyperactivity disorder (ADHD), unspecified ADHD type F90.9 [facility] [address] [address] Aug, Lumbago with sciatica, left side M54.42 ; Lumbago with sciatica, right side M54.41 and Other chronic pain G89.29 [facility] [address] [address] June, Attention deficit hyperactivity disorder (ADHD), unspecified ADHD type F90.9 and MDD (major depressive disorder), recurrent episode, mild F33.0 [facility] [address] [address] June, Attention deficit hyperactivity disorder (ADHD), unspecified ADHD type F90.9 [facility] [id number] [address] 8[address] May, Attention deficit hyperactivity disorder (ADHD), unspecified ADHD type F90.9 [facility] [address] [address] May, Attention deficit hyperactivity disorder (ADHD), unspecified ADHD type F90.9 and MDD (major depressive disorder), recurrent episode, mild F33.0 [facility] [address] [address]- [address] Apr, MDD (major depressive disorder), recurrent episode, mild F33.0 [facility] [id number] [place] [address] 21477- 7952 Apr, MDD (major depressive disorder), recurrent episode, mild F33.0 [facility] [id number] [place] [address] 20[address]- 2855 Mar, MDD (major depressive disorder), recurrent episode, mild F33.0 [facility] [id number] [place] [address] 80[address]- 0098 Mar, Cervicalgia M54.2 ; Radiculopathy of cervical region M54.12 ; Lumbago with sciatica, left side M54.42 ; Lumbago with sciatica, right side M54.41 and Other chronic pain G89.29 [facility] [id number] [place] [address]01- 8231 07 Mar, 2016 MDD (major depressive disorder), recurrent episode, mild F33.0 and Attention deficit disorder F90.0 [facility] [address] [place] [address] 92872- 4574 Mar, [facility] [id number] [place] [address] 01430- 1445 Feb, [facility] [id number] [place] [address] 07524- 2360 Jan, [facility] [address] [address]- 49[address] Dec, [facility] [id number] [place] [address] 96[address]- 5633 Dec, [facility] [address] [address]- [address] Nov, MDD (major depressive disorder), recurrent episode, mild F33.0 ; Attention deficit disorder F90.0 and Other halfway (current) drug therapy Z79.899 [facility] [id number] [address] Oct, [facility] [id number] [place] [address] 08783- 4383 Oct, [facility] [id number] [place] [address] 25628- 5773 Sep, Attention deficit hyperactivity disorder (ADHD), unspecified ADHD type F90.9 [facility] [id number] [address] 0[address] Jul, Attention deficit hyperactivity disorder (ADHD), unspecified ADHD type F90.9 [facility] [address] [address]- 29[address] Jul, Attention deficit hyperactivity disorder (ADHD), unspecified ADHD type F90.9 ; Dysthymia F34.1 ; Abnormal weight gain R63.5 and Family history of heart disease Z82.49 [facility] [address] [address]- [address] May, [facility] [id number] [address]- 8129 Apr, [facility] [address] [address]- 9036 Mar, [facility] [id number] [address]- 9[address] Feb, [facility] [address] [address]- 6263 Jan, [facility] [id number] [place] [address] 57608- 3995 Jan, [facility] [id number] [place] [address] 28854- 7839 Dec, [facility] [id number] [place] [address] 31882- 4208 Dec, Attention deficit disorder F90.0 [facility] [id number] [place] [address] 54330- 4880 Dec, Attention deficit disorder F90.0 [facility] [id number] [place] [address] 31720- 5563 Nov, [facility] [id number] [place] [address] 087052- 6072 Nov, Attention deficit disorder F90.0 and Low back pain, unspecified back pain laterality, with sciatica presence unspecified M54.5 [facility] [id number] [place] [address] 34631- 3880 Sep, [facility] [id number] [place] [address] 82602- 3285 Sep, Irritable bowel syndrome with constipation 564.1 and Back pain 724.5 [facility] [id number] [place] [address] 770365- 2947 Aug, [facility] [id number] [place] [address] 45658- 1684 Aug, [facility] [id number] [place] [address] 15650- 0685 Jul, [facility] [id number] [place] [address] 225576- 8137 Jul, [facility] [id number] [place] [address] 47418- 3446 June, [facility] [id number] [place] [address] 73852- 3576 June, [facility] [id number] [place] [address] [place] [address] 14 May, 2014 [facility] [place] [facility] [address] [id number] [place] [address]- 5914 13 May, 2014 [facility] [place] [facility] [address] [id number] [place] [address]- 9648 26 Apr, 2014 [facility] [place] [facility] [address] [id number] [place] [address]- 0640 26 Apr, 2014 [facility] [place] [facility] [address] [id number] [place] [address]- 2227 19 Apr, 2014 [facility] [place] [facility] [address] [id number] [place] [address]- 3022 19 Apr, 2014 [facility] [place] [facility] [address] [id number] [place] [address]- 0768 17 Apr, 2014 [facility] [place] [facility] [address] [id number] [place] [address]- 8657 17 Apr, 2014 [facility] [place] [facility] [address] [id number] [place] [address]- 6961 17 Apr, 2014 [facility] [place] [facility] [address] [id number] [place] [address]- 8972 17 Apr, 2014 [facility] [place] [facility] [address] [id number] [place] [address]- 3206 16 Apr, 2014 [facility] [place] [facility] [address] [id number] [place] [address]- 4732 16 Apr, 2014 [facility] [place] [facility] [address] [id number] [place] [address]- 8211 14 Apr, 2014 [facility] [place] [facility] [address] [id number] [place] [address]- 3734 14 Apr, 2014 [facility] [place] [facility] [address] [id number] [place] [address]- 4867 09 Apr, 2014 [facility] [place] [facility] [address] [id number] [place] [address]- 5459 09 Apr, 2014 [facility] [place] [facility] [address] [id number] [place] [address]- 8699 09 Apr, 2014 [facility] [place] [facility] [address] [id number] [place] [address]- 6947 Apr, 2014 [facility] [place] [facility] [address] [id number] [place] [address]- 5193 Apr, 2014 [facility] [place] [facility] [address] [id number] [place] [address]- 2687 Apr, 2014 [facility] [place] [facility] [address] [id number] [place] [address]- 1459 Mar, 2014 [facility] [place] [facility] [address] [id number] [place] [address]- 1544 Mar, 2014 [facility] [place] [facility] [address] [facility] [id number] [place] [address]- 3620 Mar, 2014 [facility] [place] [facility] [address] [id number] [place] [address]- 0490 24 Mar, 2014 [facility] [place] [facility] [address] [id number] [place] [address]- 8880 Mar, 2014 [facility] [place] [facility] [address] [facility] [id number] [place] [address]- 0850 Mar, 2014 [facility] [place] [facility] [address] [facility] [id number] [place] [address]- 2619 18 Mar, 2014 [facility] [place] [facility] [address] [id number] [place] [address]- 3951 18 Mar, 2014 [facility] [place] [facility] [address] [id number] [place] [address]- 2489 17 Mar, 2014 [facility] [place] [facility] [address] [id number] [place] [address]- 7477 14 Mar, 2014 [facility] [place] [facility] [address] [facility] [id number] [place] [address]- 3157 14 Mar, 2014 [facility] [place] [facility] [address] [id number] [place] [address]- 2467 Mar, [facility] [address] [id number] [place] [address]- 6790 Mar, [facility] [address] [id number] [place] [address]- 7884 Feb, [facility] [address] [id number] [place] [address]- 5510 Feb, [facility] [place] [facility] [address] [id number] [place] [address]- 5836 Feb, [facility] [address] [id number] [place] [address]- 6278 Feb, [facility] [address] [facility] [id number] [place] [address]- 3406 Jan, [facility] [address] [facility] [id number] [place] [address]- 9587 Jan, [facility] [address] [facility] [id number] [place] [address]- 7800 Jan, [facility] [place] [facility] [address] [facility] [id number] [place] [address]- 1970 Jan, [facility] [address] [facility] [id number] [place] [address]- 7070 Dec, [facility] [place] [facility] [address] [id number] [place] [address]- 5251 Dec, [facility] [place] [facility] [address] [id number] [place] [address]- 6514 Nov, [facility] [place] [facility] [address] [id number] [place] [address]- 5068 Nov, [facility] [place] [facility] [address] [facility] [id number] [place] [address]- 6605 Oct, [facility] [place] [facility] [address] [id number] [place] [address]- 3230 Oct, [facility] [place] [facility] [address] [id number] [place] [address]- 6694 Oct, [facility] [place] [facility] [address] [id number] [place] [address]- 9444 Oct, [facility] [place] [facility] [address] [id number] [place] [address]- 1072 Sep, [facility] [place] [facility] [address] [id number] [place] [address]- 9220 Sep, [facility] [place] [facility] [address] [id number] [place] [address]- 1199 June, [facility] [place] [facility] [address] [id number] [place] [address]- 0491 June, [facility] [place] [facility] [address] [id number] [place] [address]- 4083 Apr, [facility] [place] [facility] [address] [id number] [place] [address]- 8516 Apr, [facility] [place] [facility] [address] [id number] [place] [address]- 5569 Mar, [facility] [place] [facility] [address] [id number] [place] [address]- 1395 Mar, [facility] [place] [facility] [address] [id number] [place] [address]- 8254 Mar, [facility] [place] [facility] [address] [id number] [place] [address]- 8965 Mar, [facility] [place] [facility] [address] [id number] [place] [address]- 8128 Mar, [facility] [place] [facility] [address] [id number] [place] [address]- 9718 Mar, [facility] [place] [facility] [address] [id number] [place] [address]- 4368 Mar, [facility] [place] [facility] [id number] [address]- 7751 14 Mar, 2013 [facility] [id number] [address]- 5612 14 Mar, 2013 [facility] [address] [address]- 7793 Mar, [facility] [id number] [address]- 9703 Mar, [facility] [address] [address]- 0135 Jan, [facility] [address] [address]- 6536 Jan, [facility] [address] [address]- 9029 Jan, [facility] [address] [address]- 4422 Jan, [facility] [address] [address]- 9936 Jan, [facility] [address] [address]- 1520 Jan, IMMUNIZATIONS No Known Immunizations SOCIAL HISTORY Never Assessed [facility] PLAN OF CARE VITAL SIGNS MEDICATIONS Unknown [...]
--- OUTSIDE RECORDS SUMMARY | 2017-11-30 13:27 | XMS REPORT ---
Author Author JUSTIN MOHAN [facility] [address] Address [address] [place] [address] Care Team Providers [employer] Supervisor Name Role Phone MARQUES JUSTIN Unavailable PROBLEMS Type Condition ICD9-CM Code RYT50-FA Code Onset Dates Condition Status SNOMED Code Problem Dysthymia F34.1 Active 50607485 Problem Other chronic pain G89.29 Active 63758101 Problem MDD (major depressive disorder), recurrent episode, mild F33.0 Active 44629801 Problem Unspecified backache 724.5 Active 114710373 Problem Attention deficit hyperactivity disorder (ADHD), unspecified ADHD type F90.9 Active 511825485 Problem Recurrent major depressive disorder, in partial remission F33.41 Active 11808192 Problem Other chronic pain G89.29 Active 92339048 Problem Lumbago with sciatica, right side M54.41 Active 081292751 Problem Lumbago with sciatica, left side M54.42 Active 995701603 Problem Attention deficit hyperactivity disorder (ADHD), predominantly inattentive type F90.0 Active 19714737 Problem Moderate episode of recurrent major depressive disorder F33.1 Active 114875052 ALLERGIES No Information ENCOUNTERS Encounter Location Date Diagnosis [place] [id number] [address] Aug, [place] [id number] [address] Aug, Recurrent major depressive disorder, in partial remission F33.41 and Attention deficit hyperactivity disorder (ADHD), unspecified ADHD type F90.9 [facility] [id number] [address] June, Lumbago with sciatica, right side M54.41 ; Other chronic pain G89.29 ; Attention deficit hyperactivity disorder (ADHD), predominantly inattentive type F90.0 and Cervical neuritis M54.12 [facility] [id number] [address] June, Moderate episode of recurrent major depressive disorder F33.1 ; Attention deficit hyperactivity disorder (ADHD), unspecified ADHD type F90.9 and MDD (major depressive disorder), recurrent episode, mild F33.0 [facility] [id number] [address] June, [facility] [id number] [address] May, [facility] [id number] [address] Apr, [facility] [address] [address] Mar, [facility] [id number] [address] Feb, [facility] [id number] [address] Feb, Moderate episode of recurrent major depressive disorder F33.1 and Attention deficit hyperactivity disorder (ADHD), unspecified ADHD type F90.9 [facility] [id number] [address] Jan, [facility] [id number] [address] Dec, MDD (major depressive disorder), recurrent episode, mild F33.0 [facility] [id number] [address] Dec, [facility] [id number] [address] Dec, [facility] [id number] [address] Dec, MDD (major depressive disorder), recurrent episode, mild F33.0 and Attention deficit hyperactivity disorder (ADHD), unspecified ADHD type F90.9 [facility] [id number] [address] Oct, MDD (major depressive disorder), recurrent episode, mild F33.0 and Attention deficit hyperactivity disorder (ADHD), unspecified ADHD type F90.9 [facility] [id number] [address] Aug, Lumbago with sciatica, left side M54.42 ; Lumbago with sciatica, right side M54.41 and Other chronic pain G89.29 [facility] [id number] [place] [address] June, Attention deficit hyperactivity disorder (ADHD), unspecified ADHD type F90.9 and MDD (major depressive disorder), recurrent episode, mild F33.0 [facility] [id number] [address] June, Attention deficit hyperactivity disorder (ADHD), unspecified ADHD type F90.9 [facility] [id number] [address] May, Attention deficit hyperactivity disorder (ADHD), unspecified ADHD type F90.9 [facility] [id number] [address] May, Attention deficit hyperactivity disorder (ADHD), unspecified ADHD type F90.9 and MDD (major depressive disorder), recurrent episode, mild F33.0 [facility] [id number] [address] Apr, MDD (major depressive disorder), recurrent episode, mild F33.0 [facility] [id number] [address] Apr, MDD (major depressive disorder), recurrent episode, mild F33.0 [facility] [id number] [address] Mar, MDD (major depressive disorder), recurrent episode, mild F33.0 [facility] [address] [address] 13 Mar, 2016 Cervicalgia M54.2 ; Radiculopathy of cervical region M54.12 ; Lumbago with sciatica, left side M54.42 ; Lumbago with sciatica, right side M54.41 and Other chronic pain G89.29 [facility] [id number] [place] [address] 07 Mar, 2016 MDD (major depressive disorder), recurrent episode, mild F33.0 and Attention deficit disorder F90.0 [facility] [id number] [place] [address]- 4656 Mar, [facility] [id number] [place] [address]- 2307 Feb, [facility] [id number] [place] [address]- 6143 Jan, [facility] [id number] [place] [address]- 9527 Dec, [facility] [id number] [place] [address]- 0967 Dec, [facility] [id number] [place] [address]- [address]85 Nov, MDD (major depressive disorder), recurrent episode, mild F33.0 ; Attention deficit disorder F90.0 and Other jail (current) drug therapy Z79.899 [facility] [address] [address] Oct, [facility] [id number] [place] [address]- 1056 Oct, [facility] [address] [place] [address]- 5326 Sep, Attention deficit hyperactivity disorder (ADHD), unspecified ADHD type F90.9 [facility] [address], [place] [address] Jul, Attention deficit hyperactivity disorder (ADHD), unspecified ADHD type F90.9 [facility] [id number] [place] [address] 623542- 5562 09 Jul, 2015 Attention deficit hyperactivity disorder (ADHD), unspecified ADHD type F90.9 ; Dysthymia F34.1 ; Abnormal weight gain R63.5 and Family history of heart disease Z82.49 [facility] [id number] [address] May, [facility] [id number] [place] [address]- 6739 Apr, [facility] [id number] [place] [address]83- 0861 Mar, [facility] [id number] [place] [address]- 6442 Feb, [facility] [id number] [place] [address]- 8936 Jan, [facility] [id number] [place] [address] 0[address]- 1291 Jan, [facility] [id number] [address]- 7038 Dec, [facility] [id number] [place] [address]- 8227 Dec, Attention deficit disorder F90.0 [facility] [address] [address]- 8490 Dec, Attention deficit disorder F90.0 [facility] [id number] [place] [address]99- 3436 Nov, [facility] [address] [address]- [address]38 Nov, Attention deficit disorder F90.0 and Low back pain, unspecified back pain laterality, with sciatica presence unspecified M54.5 [facility] [id number] [address]- 8[address] Sep, [facility] [id number] [place] [address] 862025- 6313 Sep, Irritable bowel syndrome with constipation 564.1 and Back pain 724.5 [facility] [id number] [place] [address]- 1208 Aug, [facility] [address] [facility] [id number] [place] [address] 09665- 2756 Aug, [facility] [id number] [place] [address] 86672- 8431 Jul, [facility] [id number] [place] [address] 817066- 7213 Jul, [facility] [id number] [place] [address] 16928- 6154 June, [facility] [address], [place] [address]- 8598 June, [facility] [address], [place] [address]- 7366 May, [facility] [address], [place] [address]- 1157 May, [facility] [address], [place] [address]- 6925 Apr, [facility] [address] [facility] [id number] [address] Apr, [facility] [id number] [address] Apr, [facility] [id number] [address] Apr, [facility] [id number] [address]- 6094 Apr, [facility] [place] [facility] [address] [id number] [place] [address]- 8220 Apr, [facility] [place] [facility] [address] [id number] [place] [address]- 8313 Apr, [facility] [place] [facility] [address] [id number] [place] [address]- 2929 Apr, [facility] [place] [facility] [address] [id number] [place] [address]- 0653 Apr, [facility] [place] [facility] [address] [id number] [place] [address]- 6529 Apr, [facility] [place] [facility] [address] [id number] [place] [address]- 5821 Apr, [facility] [place] [facility] [address] [id number] [place] [address]- 4359 Apr, [facility] [place] [facility] [address] [id number] [place] [address]- 8875 Apr, [facility] [place] [facility] [address] [id number] [place] [address]- 3210 Apr, [facility] [place] [facility] [address] [facility] [id number] [place] [address]- 5118 Apr, [facility] [place] [facility] [address] [id number] [place] [address]- 8031 Apr, [facility] [place] [facility] [address] [id number] [place] [address]- 2068 Apr, [facility] [place] [facility] [address] [id number] [place] [address]- 1082 Apr, [facility] [place] [facility] [address] [id number] [place] [address]- 9405 Mar, [facility] [place] [facility] [address] [id number] [place] [address]- 1428 Mar, [facility] [place] [facility] [address] [id number] [place] [address]- 1806 24 Mar, 2014 [facility] [place] [facility] [address] [id number] [place] [address]- 7810 Mar, 2014 [facility] [place] [facility] [address] [id number] [place] [address]- 9316 Mar, 2014 [facility] [place] [facility] [address] [id number] [place] [address]- 2980 Mar, 2014 [facility] [place] [facility] [address] [id number] [place] [address]- 7007 Mar, 2014 [facility] [place] [facility] [address] [id number] [place] [address]- 2007 Mar, 2014 [facility] [place] [facility] [address] [facility] [id number] [place] [address]- 6038 17 Mar, 2014 [facility] [place] [facility] [address] [id number] [place] [address]- 3407 14 Mar, 2014 [facility] [place] [facility] [address] [id number] [place] [address]- 2617 Mar, [facility] [place] [facility] [address] [facility] [id number] [place] [address]- 6649 Mar, [facility] [place] [facility] [address] [id number] [place] [address]- 9360 Mar, [facility] [place] [facility] [address] [id number] [address]- 3541 Feb, [facility] [place] [facility] [address] [id number] [place] [address]- 6406 Feb, [facility] [place] [facility] [address] [id number] [place] [address]- 7718 Feb, [facility] [place] [facility] [address] [facility] [id number] [place] [address]- 2151 Feb, [facility] [place] [facility] [address] [id number] [place] [address]- 8426 Jan, [facility] [place] [facility] [address] [id number] [place] [address]121 Jan, [facility] [place] [facility] [address] [id number] [place] [address]- 8993 Jan, [facility] [place] [facility] [address] [id number] [place] [address]- 0415 Jan, [facility] [place] [facility] [address] [id number] [place] [address]- 5088 Dec, [facility] [place] [facility] [address] [id number] [place] [address]- 2548 Dec, [facility] [place] [facility] [address] [id number] [place] [address]- 1940 Nov, [facility] [place] [facility] [address] [id number] [place] [address]- 9012 Nov, [facility] [place] [facility] [address] [id number] [place] [address]- 5833 Oct, [facility] [place] [facility] [address] [id number] [place] [address]- 7800 Oct, [facility] [place] [facility] [address] [id number] [place] [address]- 9367 Oct, [facility] [place] [facility] [address] [id number] [place] [address]- 8075 Oct, [facility] [place] [facility] [address] [id number] [place] [address]- 1020 Sep, [facility] [place] [facility] [address] [id number] [place] [address]- 8327 Sep, [facility] [place] [facility] [address] [id number] [place] [address]- 3347 June, [facility] [place] [facility] [address] [id number] [place] [address] June, [facility] [place] [facility] [address] [id number] [place] [address]- 6780 Apr, [facility] [place] [facility] [address] [id number] [place] [address]- 8699 Apr, [facility] [place] [facility] [address] [id number] [place] [address]- 0359 Mar, [facility] [place] [facility] [address] [id number] [place] [address]- 5867 Mar, [facility] [place] [facility] [address] [id number] [place] [address]- 4388 Mar, [facility] [place] [facility] [address] [id number] [place] [address]- 4684 Mar, [facility] [place] [facility] [address] [id number] [place] [address]- 2822 Mar, [facility] [place] [facility] [address] [id number] [place] [address]- 9725 Mar, [facility] [place] [facility] [address] [id number] [place] [address]- 1153 Mar, [facility] [place] [facility] [address] [id number] [place] [address]- 2933 Mar, [facility] [place] [facility] [address] [id number] [place] [address]- 3811 Mar, [facility] [place] [facility] [address] [id number] [place] [address]- 8025 Mar, [facility] [place] [facility] [address] [id number] [place] [address]- 5083 Mar, [facility] [place] [facility] [address] [id number] [place] [address]- 4075 Jan, [facility] [place] [facility] [address] [id number] [place] [address]- 6959 Jan, [facility] [place] [facility] [address] [facility] [id number] [place] [address]- 6302 Jan, [facility] [address] [facility] [id number] [address]803 Jan, [facility] [address] [facility] [id number]- 7651 Jan, [facility] [address] [facility] [id number] 9176 Jan, IMMUNIZATIONS No Known Immunizations SOCIAL HISTORY Never Assessed REASON FOR VISIT adderall 05/12/2017 PLAN OF CARE VITAL SIGNS MEDICATIONS Medication Instructions Dosage Frequency Start Date End Date Duration Status Adderall 20 mg Orally 2 times a day 1 tablet 12h Apr, 28 [...]
--- OUTSIDE RECORDS SUMMARY | 2017-11-30 13:27 | XMS REPORT ---
Author Author JOCELYN LYNNE Organization [facility] Address [address] [place] [address] Care Team Providers Care Physician Office Nurse Name Role Phone MAGED JOCELYN Unavailable PROBLEMS Type Condition ICD9-CM Code DUH02-AO Code Onset Dates Condition Status SNOMED Code Problem Dysthymia F34.1 Active 74888527 Problem Other chronic pain G89.29 Active 46816617 Problem MDD (major depressive disorder), recurrent episode, mild F33.0 Active 11563961 Problem Unspecified backache 724.5 Active 842553731 Problem Attention deficit hyperactivity disorder (ADHD), unspecified ADHD type F90.9 Active 148351237 Problem Recurrent major depressive disorder, in partial remission F33.41 Active 95014823 Problem Other chronic pain G89.29 Active 96279793 Problem Lumbago with sciatica, right side M54.41 Active 223136677 Problem Lumbago with sciatica, left side M54.42 Active 648512936 Problem Attention deficit hyperactivity disorder (ADHD), predominantly inattentive type F90.0 Active 25233535 Problem Moderate episode of recurrent major depressive disorder F33.1 Active 040637791 ALLERGIES No Information ENCOUNTERS Encounter Location Date Diagnosis [facility] [address], [place] [address] Sep, Moderate episode of recurrent major depressive disorder F33.1 [facility] [id number], [place] [address] Aug, [facility] [id number] [place] [address]- 164[address] Aug, Recurrent major depressive disorder, in partial remission F33.41 and Attention deficit hyperactivity disorder (ADHD), unspecified ADHD type F90.9 [facility] [id number] [place] [address]47- 6545 June, Lumbago with sciatica, right side M54.41 ; Other chronic pain G89.29 ; Attention deficit hyperactivity disorder (ADHD), predominantly inattentive type F90.0 and Cervical neuritis M54.12 [facility] [id number] [place] [address] June, Moderate episode of recurrent major depressive disorder F33.1 ; Attention deficit hyperactivity disorder (ADHD), unspecified ADHD type F90.9 and MDD (major depressive disorder), recurrent episode, mild F33.0 [facility] [id number], [place] [address] June, [facility] [id number] [place] [address]76- 0566 May, [facility] [id number] [place] [address] 34384- 7929 Apr, [facility] [id number] [place] [address] 00871- 7549 Mar, [facility] [id number] [place] [address] 88387- 3045 Feb, [facility] [id number] [place] [address] 75841- 8942 Feb, Moderate episode of recurrent major depressive disorder F33.1 and Attention deficit hyperactivity disorder (ADHD), unspecified ADHD type F90.9 [facility] [id number], [place] [address] Jan, [facility] [id number], [place] [address] Dec, MDD (major depressive disorder), recurrent episode, mild F33.0 [facility] [id number], [place] [address] 26[address] Dec, [facility] [id number], [place] [address] Dec, [facility] [address], [place] [address] Dec, MDD (major depressive disorder), recurrent episode, mild F33.0 and Attention deficit hyperactivity disorder (ADHD), unspecified ADHD type F90.9 [facility] [address] [place] [address] Oct, MDD (major depressive disorder), recurrent episode, mild F33.0 and Attention deficit hyperactivity disorder (ADHD), unspecified ADHD type F90.9 [facility] [id number], [place] [address] Aug, Lumbago with sciatica, left side M54.42 ; Lumbago with sciatica, right side M54.41 and Other chronic pain G89.29 [facility] [id number], [place] [address] June, Attention deficit hyperactivity disorder (ADHD), unspecified ADHD type F90.9 and MDD (major depressive disorder), recurrent episode, mild F33.0 [facility] [id number] [place] [address] June, Attention deficit hyperactivity disorder (ADHD), unspecified ADHD type F90.9 [facility] [id number] [place] [address] 4[address] May, Attention deficit hyperactivity disorder (ADHD), unspecified ADHD type F90.9 [facility] [id number], [place] [address] May, Attention deficit hyperactivity disorder (ADHD), unspecified ADHD type F90.9 and MDD (major depressive disorder), recurrent episode, mild F33.0 [facility] [id number] [place] [address] Apr, MDD (major depressive disorder), recurrent episode, mild F33.0 [facility] [id number] [place] [address]- 48[address] Apr, MDD (major depressive disorder), recurrent episode, mild F33.0 [facility] [address], [place] [address] Mar, MDD (major depressive disorder), recurrent episode, mild F33.0 [facility] [id number], [place] [address] 13 Mar, 2016 Cervicalgia M54.2 ; Radiculopathy of cervical region M54.12 ; Lumbago with sciatica, left side M54.42 ; Lumbago with sciatica, right side M54.41 and Other chronic pain G89.29 [facility] [id number] [place] [address] 22429- 1090 Mar, MDD (major depressive disorder), recurrent episode, mild F33.0 and Attention deficit disorder F90.0 [facility] [id number] [place] [address] 06586- 5135 Mar, [facility] [id number] [place] [address] 35144- 9292 Feb, [facility] [id number] [place] [address] 55904- 0239 Jan, [facility] [id number] [place] [address] 56523- 4749 Dec, [facility] [id number], [place] [address]- 2244 Dec, [facility] [id number] [place] [address] 53753- 5359 Nov, MDD (major depressive disorder), recurrent episode, mild F33.0 ; Attention deficit disorder F90.0 and 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 [facility] [id number] [place] [address] 40563- 8506 Oct, [facility] [id number] [place] [address] 40356- 3948 Oct, [facility] [address], [place] [address]- 5[address] Sep, Attention deficit hyperactivity disorder (ADHD), unspecified ADHD type F90.9 [facility] [id number] [place] [address] 547782- 4850 Jul, Attention deficit hyperactivity disorder (ADHD), unspecified ADHD type F90.9 [facility] [id number] [place] [address] 55779- 3760 Jul, Attention deficit hyperactivity disorder (ADHD), unspecified ADHD type F90.9 ; Dysthymia F34.1 ; Abnormal weight gain R63.5 and Family history of heart disease Z82.49 [facility] [id number] [place] [address] 29294- 0475 May, [facility] [id number], [place] [address]- 1042 Apr, [facility] [id number] [place] [address] 96373- 2191 Mar, [facility] [id number] [address]- 2070 Feb, [facility] [id number] [place] [address] 85741- 5940 Jan, [facility] [address], [place] [address]- 4031 Jan, [facility] [address] [address] Dec, [facility] [address], [place] [address]- 8388 Dec, Attention deficit disorder F90.0 [facility] [address] [place] [address] 052763- 1673 Dec, Attention deficit disorder F90.0 [facility] [address], [place] [address]- 7739 Nov, [facility] [address], [place] [address]- 8020 Nov, Attention deficit disorder F90.0 and Low back pain, unspecified back pain laterality, with sciatica presence unspecified M54.5 [facility] [id number], [place] [address]- 7036 Sep, [facility] [id number] [place] [address] 37065- 9993 Sep, Irritable bowel syndrome with constipation 564.1 and Back pain 724.5 [facility] [id number] [place] [address], [place] Aug, [facility] [id number], [place] [address]- 4851 Aug, [facility] [id number], [place] [address]- 2113 Jul, [facility] [id number], [place] [address]- 0027 Jul, [facility] [address], [place] [address]- 2834 June, [facility] [address], [place] [address]- 2307 June, [facility] [address], [place] [address]- 4642 May, [facility] [address], [place] [address]- 0375 May, [facility] [address] 8291 Apr, [facility] [address] 44[address] Apr, [facility] [address] 8024 Apr, [facility] [id number] [place] [address]- 2546 19 Apr, 2014 [facility] [place] [facility] [address] [id number] [place] [address]- 4926 17 Apr, 2014 [facility] [place] [facility] [address] [id number] [place] [address]- 2546 17 Apr, 2014 [facility] [place] [facility] [address] [id number] [place] [address]- 7276 17 Apr, 2014 [facility] [place] [facility] [address] [id number] [place] [address]- 2546 17 Apr, 2014 [facility] [place] [facility] [address] [id number] [place] [address]- 6908 16 Apr, 2014 [facility] [place] [facility] [address] [id number] [place] [address]- 8966 16 Apr, 2014 [facility] [place] [facility] [address] [id number] [place] [address]- 2638 14 Apr, 2014 [facility] [place] [facility] [address] [id number] [place] [address]- 6470 14 Apr, 2014 [facility] [place] [facility] [address] [id number] [place] [address]- 5108 Apr, 2014 [facility] [place] [facility] [address] [id number] [place] [address]- 0377 Apr, 2014 [facility] [place] [facility] [address] [id number] [place] [address]- 4406 Apr, 2014 [facility] [place] [facility] [address] [id number] [place] [address]- 9186 Apr, 2014 [facility] [place] [facility] [address] [id number] [place] [address]- 1696 Apr, 2014 [facility] [place] [facility] [address] [id number] [place] [address]- 2546 Apr, [facility] [place] [facility] [address] [id number] [place] [address]- 3363 Mar, [facility] [place] [facility] [address] [id number] [place] [address]- 5845 Mar, 2014 [facility] [place] [facility] [address] [id number] [place] [address]- 9492 Mar, 2014 [facility] [place] [facility] [address] [facility] [id number] [place] [address]- 1060 Mar, 2014 [facility] [place] [facility] [address] [facility] [id number] [place] [address]- 0236 Mar, 2014 [facility] [place] [facility] [address] [id number] [place] [address]- 7547 Mar, 2014 [facility] [place] [facility] [address] [facility] [id number] [place] [address]- 5193 Mar, 2014 [facility] [place] [facility] [address] [facility] [id number] [place] [address]- 3444 18 Mar, 2014 [facility] [place] [facility] [address] [facility] [id number] [place] [address]- 1380 17 Mar, 2014 [facility] [place] [facility] [address] [facility] [id number] [place] [address]- 1103 14 Mar, 2014 [facility] [place] [facility] [address] [facility] [id number] [place] [address]- 0805 Mar, [facility] [place] [facility] [address] [facility] [id number] [place] [address]- 3256 Mar, [facility] [place] [facility] [address] [facility] [id number] [place] [address]- 1357 Mar, [facility] [place] [facility] [address] [facility] [id number] [place] [address]- 9260 Feb, [facility] [place] [facility] [address] [facility] [id number] [place] [address]- 6986 Feb, [facility] [place] [facility] [address] [facility] [id number], [place] [address]- 7261 Feb, [facility] [place] [facility] [address] [id number] [place] [address]- 0252 Feb, [facility] [place] [facility] [address] [id number] [place] [address]- 3210 Jan, [facility] [place] [facility] [address] [id number] [place] [address]- 5341 Jan, [facility] [place] [facility] [address] [id number] [place] [address]- 6912 Jan, [facility] [place] [facility] [address] [id number] [place] [address]- 2865 Jan, [facility] [place] [facility] [address] [id number] [place] [address]- 0217 Dec, [facility] [place] [facility] [address] [id number] [place] [address]- 4626 Dec, [facility] [place] [facility] [address] [id number] [place] [address]- 0501 Nov, [facility] [place] [facility] [address] [id number] [place] [address]- 0529 Nov, [facility] [place] [facility] [address] [id number] [place] [address]- 2059 Oct, [facility] [place] [facility] [address] [id number] [place] [address]- 3796 Oct, [facility] [place] [facility] [address] [id number] [place] [address]- 1492 Oct, [facility] [place] [facility] [address] [id number] [place] [address]- 0744 Oct, [facility] [place] [facility] [address] [id number] [place] [address]- 2758 Sep, [facility] [place] [facility] [address] [id number] [place] [address]- 5937 Sep, [facility] [place] [facility] [address] [id number] [place] [address]- 9568 June, [facility] [place] [facility] [address] [id number] [place] [address]- 4029 June, [facility] [place] [facility] [address] [id number] [place] [address]- 9362 Apr, [facility] [place] [facility] [address] [facility] [id number] [place] [address]- 0950 Apr, [facility] [place] [facility] [address] [id number] [place] [address]- 1214 Mar, [facility] [place] [facility] [address] [id number] [place] [address]- 4437 Mar, [facility] [place] [facility] [address] [facility] [id number] [place] [address]- 4713 Mar, [facility] [place] [facility] [address] [facility] [id number] [place] [address]- 0024 Mar, [facility] [place] [facility] [address] [facility] [id number] [place] [address]- 8727 Mar, [facility] [place] [facility] [address] [facility] [id number] [place] [address]- 1050 Mar, [facility] [place] [facility] [address] [facility] [id number] [place] [address]- 8216 Mar, [facility] [place] [facility] [address] [facility] [id number] [place] [address]- 6738 Mar, [facility] [place] [facility] [address] [facility] [id number] [place] [address]- 1754 Mar, [facility] [place] [facility] [address] [id number] [place] [address]- 7324 Mar, [facility] [place] [facility] [address] [facility] [id number] [place] [address]- 2736 Mar, [facility] [place] [facility] [address] [facility] [id number] [place] [address]- 2654 Jan, [facility] [address] [facility] [id number], [place] [address]- 1879 Jan, [facility] [id number], [place] [address]- 6992 Jan, [facility] [id number], [place] [address]- 4808 Jan, [facility] [id number] 2610 Jan, [facility] [address] [facility] [id number], [place] [address]- 0125 Jan, IMMUNIZATIONS No Known Immunizations SOCIAL HISTORY Never Assessed [facility] VITAL SIGNS MEDICATIONS Unknown [...]
--- OUTSIDE RECORDS SUMMARY | 2017-11-30 13:28 | XMS REPORT ---
Author Author ELISA Painting Organization [facility] Address [address] [place] [address] Care Team Providers Care Asset Management Analyst Name Role Phone ELISA Painting Unavailable PROBLEMS Type Condition ICD9-CM Code GLE86-XT Code Onset Dates Condition Status SNOMED Code Problem Unspecified backache 724.5 Active 293640029 Problem Lumbago with sciatica, right side M54.41 Active 460976104 Problem Lumbago with sciatica, left side M54.42 Active 939255223 Problem Dysthymia F34.1 Active 17013695 Problem Attention deficit hyperactivity disorder (ADHD), unspecified ADHD type F90.9 Active 883536255 Problem Other chronic pain G89.29 Active 69001954 Problem MDD (major depressive disorder), recurrent episode, mild F33.0 Active 39853199 ALLERGIES Unknown Allergies SOCIAL HISTORY No smoking Hx information available PLAN OF CARE VITAL SIGNS MEDICATIONS Medication Instructions Dosage Frequency Start Date End Date Duration Status Adderall 20 mg Orally twice a day 1 tablet 12h Dec, 28 days Active RESULTS No Results PROCEDURES No Known procedures IMMUNIZATIONS No Known Immunizations
--- OUTSIDE RECORDS SUMMARY | 2017-11-30 13:28 | XMS REPORT ---
Author Author MACHO RANDOLPH Organization [employer] Address Unknown Phone Unavailable Care Team Providers Care Certified Control Systems Technician Name Role Phone MACHO RANDOLPH CP Unavailable Allergies No Known Allergies Problems Problem Type Condition Code Onset Dates Condition Status Problem Dysthymia F34.1 Active Problem Unspecified backache 724.5 Active Problem Attention deficit hyperactivity disorder (ADHD), unspecified ADHD type F90.9 Active Assessment Attention deficit hyperactivity disorder (ADHD), unspecified ADHD type F90.9 Active Medications Medication Code System Code Instructions Start Date End Date Status Dosage Adderall [facility] [address]-17 20 mg Orally twice a day Dec 23, 2014 1 tablet Results No Known Results Summary Purpose [employer] Submission
--- OUTSIDE RECORDS SUMMARY | 2017-11-30 13:29 | XMS REPORT ---
Author Author JOCELYN LYNNE Organization [facility] Address [address] [place] [address] Care Team Providers Care Product Accountant Name Role Phone JOCELYN LYNNE Unavailable PROBLEMS Type Condition ICD9-CM Code WLC05-VB Code Onset Dates Condition Status SNOMED Code Problem Attention deficit hyperactivity disorder (ADHD), unspecified ADHD type F90.9 Active 034490810 Problem Unspecified backache 724.5 Active 603842942 Problem Moderate episode of recurrent major depressive disorder F33.1 Active 348453025 Problem Lumbago with sciatica, right side M54.41 Active 292962798 Problem MDD (major depressive disorder), recurrent episode, mild F33.0 Active 87660311 Problem Dysthymia F34.1 Active 39951096 Problem Lumbago with sciatica, left side M54.42 Active 790160683 Problem Other chronic pain G89.29 Active 41165050 ALLERGIES No Information ENCOUNTERS Encounter Location Date Diagnosis [facility] [id number] [place] [address]29- 7270 June, [facility] [address] [address] May, [facility] [id number] [place] [address] 44303- 4321 Apr, [facility] [id number] [place] [address] 94637- 2233 Mar, [facility] [id number] [place] [address] 96752- 2612 Feb, [facility] [id number] [place] [address] 18182- 4253 Feb, Moderate episode of recurrent major depressive disorder F33.1 and Attention deficit hyperactivity disorder (ADHD), unspecified ADHD type F90.9 [facility] [id number] [address] Jan, [facility] [address] [address] Dec, MDD (major depressive disorder), recurrent episode, mild F33.0 [facility] [address] [address] 69[address] Dec, [facility] [address] [address] 73[address] Dec, [facility] [address] [address] 9[address] Dec, MDD (major depressive disorder), recurrent episode, mild F33.0 and Attention deficit hyperactivity disorder (ADHD), unspecified ADHD type F90.9 [facility] [address] [address] Oct, MDD (major depressive disorder), recurrent episode, mild F33.0 and Attention deficit hyperactivity disorder (ADHD), unspecified ADHD type F90.9 [facility] [id number] [address] 39[address] Aug, Lumbago with sciatica, left side M54.42 ; Lumbago with sciatica, right side M54.41 and Other chronic pain G89.29 [facility] [id number] [address] June, Attention deficit hyperactivity disorder (ADHD), unspecified ADHD type F90.9 and MDD (major depressive disorder), recurrent episode, mild F33.0 [facility] [address] [address] 1[address] June, Attention deficit hyperactivity disorder (ADHD), unspecified ADHD type F90.9 [facility] [id number] [address] 1168 May, Attention deficit hyperactivity disorder (ADHD), unspecified ADHD type F90.9 [facility] [address] [address] May, Attention deficit hyperactivity disorder (ADHD), unspecified ADHD type F90.9 and MDD (major depressive disorder), recurrent episode, mild F33.0 [facility] [address] [address] 30[address] Apr, MDD (major depressive disorder), recurrent episode, mild F33.0 [facility] [address] [address]- 06[address] Apr, MDD (major depressive disorder), recurrent episode, mild F33.0 [facility] [address] [address] 8[address] Mar, MDD (major depressive disorder), recurrent episode, mild F33.0 [facility] [address] [address] 0[address] Mar, Cervicalgia M54.2 ; Radiculopathy of cervical region M54.12 ; Lumbago with sciatica, left side M54.42 ; Lumbago with sciatica, right side M54.41 and Other chronic pain G89.29 [facility] [address] [address] 07 Mar, 2016 MDD (major depressive disorder), recurrent episode, mild F33.0 and Attention deficit disorder F90.0 [facility] [address] [address] 0781 Mar, [facility] [address] [address] 7325 Feb, [facility] [id number] [address] 7[address] Jan, [facility] [address] [address] 2185 Dec, [facility] [id number] [address]- 9112 Dec, [facility] [address] 116[address] Nov, MDD (major depressive disorder), recurrent episode, mild F33.0 ; Attention deficit disorder F90.0 and 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 [facility] [address] [address] 65[address] Oct, [facility] [id number] [address] 6603 Oct, [facility] [id number] [place] [address] 46565- 5676 Sep, Attention deficit hyperactivity disorder (ADHD), unspecified ADHD type F90.9 [facility] [address] [address] 5[address] Jul, Attention deficit hyperactivity disorder (ADHD), unspecified ADHD type F90.9 [facility] [address] [address] 2353 Jul, Attention deficit hyperactivity disorder (ADHD), unspecified ADHD type F90.9 ; Dysthymia F34.1 ; Abnormal weight gain R63.5 and Family history of heart disease Z82.49 [facility] [address] [address] 20[address] May, [facility] [id number], [place] [address] 3853 Apr, [facility] [address] [address]- 0199 Mar, [facility] [address] 70[address] Feb, [facility] [address] [address] Jan, [facility] [id number] [address]- 7378 Jan, [facility] [id number] [place] [address] 05396- 6804 Dec, [facility] [id number] [place] [address] 262906- 8725 Dec, Attention deficit disorder F90.0 [facility] [id number] [place] [address] 906911- 9244 Dec, Attention deficit disorder F90.0 [facility] [id number] [place] [address] 89539- 5710 Nov, [facility] [id number] [place] [address] 46610- 9185 Nov, Attention deficit disorder F90.0 and Low back pain, unspecified back pain laterality, with sciatica presence unspecified M54.5 [facility] [id number] [place] [address] 95539- 5912 Sep, [facility] [id number] [place] [address] 45727- 9836 Sep, Irritable bowel syndrome with constipation 564.1 and Back pain 724.5 [facility] [id number] [place] [address] 06909- 7242 Aug, [facility] [id number] [place] [address] 14026- 5647 Aug, [facility] [id number] [place] [address] 16804- 4099 Jul, [facility] [id number] [place] [address] 230064- 4214 Jul, [facility] [id number] [place] [address] 398297- 0544 June, [facility] [address] [address] [address] June, [facility] [address] [place] [address]- 9849 14 May, 2014 [facility] [address] [id number] [place] [address]- 3533 13 May, 2014 [facility] [place] [facility] [address] [id number] [place] [address]- 8546 26 Apr, 2014 [facility] [address] [id number] [place] [address]- 0977 26 Apr, 2014 [facility] [place] [facility] [address] [id number] [place] [address]- 9685 19 Apr, 2014 [facility] [place] [facility] [address] [id number] [place] [address]- 8543 19 Apr, 2014 [facility] [place] [facility] [address] [id number] [place] [address]- 1833 17 Apr, 2014 [facility] [place] [facility] [address] [id number] [place] [address]- 7836 17 Apr, 2014 [facility] [address] [id number] [place] [address]- 4744 17 Apr, 2014 [facility] [place] [facility] [address] [id number] [place] [address]- 0744 17 Apr, 2014 [facility] [address] [id number] [place] [address]- 9076 16 Apr, 2014 [facility] [place] [facility] [address] [id number] [place] [address]- 2107 16 Apr, 2014 [facility] [place] [facility] [address] [id number] [place] [address]- 6538 14 Apr, 2014 [facility] [place] [facility] [address] [id number] [place] [address]- 6769 14 Apr, 2014 [facility] [place] [facility] [address] [id number] [place] [address]- 2546 09 Apr, 2014 [facility] [place] [facility] [address] [id number] [place] 7003 Apr, 2014 [facility] [place] [facility] [address] [id number] [place] [address]- 5871 Apr, [facility] [place] [facility] [address] [id number] [place] [address]- 7068 Apr, 2014 [facility] [place] [facility] [address] [id number] [place] [address]- 0030 Apr, [facility] [place] [facility] [address] [id number] [place] [address]- 2908 Apr, 2014 [facility] [place] [facility] [address] [id number] [place] [address]- 3700 Mar, 2014 [facility] [place] [facility] [address] [id number] [place] [address]- 6497 Mar, 2014 [facility] [place] [facility] [address] [facility] [id number] [place] [address]- 0019 24 Mar, 2014 [facility] [place] [facility] [address] [facility] [id number] [place] [address]- 3455 24 Mar, 2014 [facility] [place] [facility] [address] [facility] [id number] [place] [address]- 0043 Mar, 2014 [facility] [place] [facility] [address] [facility] [id number] [place] [address]- 4768 23 Mar, 2014 [facility] [place] [facility] [address] [facility] [id number] [place] [address]- 2805 18 Mar, 2014 [facility] [place] [facility] [address] [facility] [id number] [place] [address]- 2847 18 Mar, 2014 [facility] [place] [facility] [address] [facility] [id number] [place] [address]- 4438 17 Mar, 2014 [facility] [place] [facility] [address] [facility] [id number] [place] [address]- 1593 14 Mar, 2014 [facility] [place] [facility] [address] [facility] [id number] [place] [address]- 1574 14 Mar, 2014 [facility] [place] [facility] [address] [id number] [place] [address]- 6694 Mar, [facility] [place] [facility] [address] [id number] [place] 7657 Mar, [facility] [place] [facility] [address] [id number] [place] [address]- 1863 Feb, [facility] [place] [facility] [address] [id number] [place] [address]- 3899 Feb, [facility] [place] [facility] [address] [id number] [place] [address]- 8661 Feb, [facility] [place] [facility] [address] [id number] [place] [address]- 5392 Feb, [facility] [place] [facility] [address] [facility] [id number] [place]- 7889 Jan, [facility] [place] [facility] [address] [id number] [place] [address]- 6165 Jan, [facility] [place] [facility] [address] [id number] [place] [address]- 7665 Jan, [facility] [place] [facility] [address] [id number] [place] [address]- 3408 Jan, [facility] [place] [facility] [address] [facility] [id number] [place] [address]- 4677 Dec, [facility] [place] [facility] [address] [id number] [place] [address]- 9988 Dec, [facility] [place] [facility] [address] [id number] [place] [address]- 2585 Nov, [facility] [place] [facility] [address] [id number] [place] [address]- 7588 Nov, [facility] [place] [facility] [address] [id number] [place] [address]- 3814 Oct, [facility] [place] [facility] [address] [id number] [place] [address]- 8442 Oct, [facility] [place] [facility] [address] [id number] [place] [address]- 6529 Oct, [facility] [place] [facility] [address] [id number] [place] [address]- 6288 Oct, [facility] [place] [facility] [address] [facility] [id number] [place]- 7405 Sep, [facility] [place] [facility] [address] [id number] [place] [address]- 6830 Sep, [facility] [place] [facility] [address] [id number] [place] [address]- 5048 June, [facility] [place] [facility] [address] [facility] [id number] [place] [address]- 9381 June, [facility] [place] [facility] [address] [facility] [id number] [place] [address]- 6187 Apr, [facility] [place] [facility] [address] [id number] [place] [address]- 4767 Apr, [facility] [place] [facility] [address] [facility] [id number] [place] [address]- 5299 Mar, [facility] [place] [facility] [address] [facility] [id number] [place] [address]- 4597 Mar, [facility] [place] [facility] [address] [facility] [id number] [place] [address]- 8157 Mar, [facility] [place] [facility] [address] [id number] [address]- 9318 Mar, [facility] [place] [facility] [address] [id number] [place] [address]- 0151 Mar, [facility] [place] [facility] [address] [id number] [place] [address]- 5813 Mar, [facility] [place] [facility] [address] [facility] [id number] [place] [address]- 8485 Mar, [facility] [place] [facility] [address] [address]- 4053 14 Mar, 2013 [facility] [address] [facility] [id number] [address]- 5436 14 Mar, 2013 [facility] [address] [facility] [id number] [address]- 9349 Mar, [facility] [address] [address]- 1346 Mar, [facility] [address], [place] [address]- 1831 Jan, [facility] [address] [address]- 5557 Jan, [facility] [address], [place] [address]- 9738 Jan, [facility] [address] [address]- 1437 Jan, [facility] [address], [place] [address]- 2465 Jan, [facility] [address] [address]- 4662 Jan, IMMUNIZATIONS No Known Immunizations SOCIAL HISTORY Never Assessed REASON FOR VISIT clarification PLAN OF CARE VITAL SIGNS MEDICATIONS Medication Instructions Dosage Frequency Start Date End Date Duration Status Adderall 20 mg Orally 2 times a day 1 tablet 12h Dec, 28 [...]
--- OUTSIDE RECORDS SUMMARY | 2017-11-30 13:29 | XMS REPORT ---
Author Author JUAN PIERSON [facility] Address [address] [place] [address] Care Team Providers Care Photoengraving Sketch Maker Name Role Phone JUAN PIERSON Unavailable PROBLEMS Type Condition ICD9-CM Code CWV30-HS Code Onset Dates Condition Status SNOMED Code Problem Attention deficit hyperactivity disorder (ADHD), unspecified ADHD type F90.9 Active 973495383 Problem Dysthymia F34.1 Active 67780221 Problem Unspecified backache 724.5 Active 893871892 ALLERGIES Unknown Allergies SOCIAL HISTORY No smoking Hx information available PLAN OF CARE VITAL SIGNS MEDICATIONS Medication Instructions Dosage Frequency Start Date End Date Duration Status Adderall 20 mg Orally twice a day 1 tablet 12h Dec, Active RESULTS No Results PROCEDURES No Known procedures IMMUNIZATIONS No Known Immunizations
--- OUTSIDE RECORDS SUMMARY | 2017-11-30 13:29 | XMS REPORT ---
Author Author ELISA GÓMEZ Organization [employer] Address Unknown Phone Unavailable Care Team Providers Care Clinical Technician Name Role Phone ELISA GÓMEZ CP Unavailable Allergies No Known Allergies Problems Problem Type Condition Code Onset Dates Condition Status Problem Dysthymia F34.1 Active Problem Unspecified backache 724.5 Active Problem Attention deficit hyperactivity disorder (ADHD), unspecified ADHD type F90.9 Active Medications Medication Code System Code Instructions Start Date End Date Status Dosage Adderall [facility] [address]-69 20 mg Orally twice a day Dec 23, 2014 1 tablet Results No Known Results Summary Purpose [employer] Submission
--- OUTSIDE RECORDS SUMMARY | 2017-11-30 13:29 | XMS REPORT ---
Author Author ELISA GÓMEZ Organization [employer] Address Unknown Phone Unavailable Care Team Providers Care Weigher Bulker Name Role Phone ELISA GÓMEZ CP Unavailable Allergies No Known Allergies Problems Problem Type Condition Code Onset Dates Condition Status Problem Dysthymia F34.1 Active Problem Unspecified backache 724.5 Active Problem Attention deficit hyperactivity disorder (ADHD), unspecified ADHD type F90.9 Active Medications Medication Code System Code Instructions Start Date End Date Status Dosage Adderall [facility] [address]-06 20 mg Orally twice a day Dec 23, 2014 1 tablet Results No Known Results Summary Purpose [employer] Submission
--- OUTSIDE RECORDS SUMMARY | 2017-11-30 13:29 | XMS REPORT ---
Author Author JUAN PIERSON [facility] [employer] Address Unknown Phone Unavailable Care Team Providers Care Charter Representative Name Role Phone JUAN PIERSON CP Unavailable [...] Start Date End Date Status Dosage Cymbalta [facility] [address]-40 60 MG Orally Once a day 1 capsule Adderall [facility] [address]-07 20 mg Orally twice a day Dec 23, 2014 1 tablet Results No Known Results Summary Purpose [employer] Submission
--- OUTSIDE RECORDS SUMMARY | 2017-11-30 13:29 | XMS REPORT ---
Author Author JUAN PIERSON [facility] [employer] Address Unknown Phone Unavailable Care Team Providers Care Salon Designer Name Role Phone JUAN PIERSON CP Unavailable [...] Start Date End Date Status Dosage Adderall [facility] [address]-94 20 MG Orally twice a day Dec 23, 2014 1 tablet Results No Known Results Summary Purpose [employer] Submission
--- OUTSIDE RECORDS SUMMARY | 2017-11-30 13:29 | XMS REPORT ---
Author Author JOCELYN LYNNE Organization [facility] Address [address] [place] [address] Care Team Providers Care Inspection Clerk Name Role Phone JOCELYN LYNNE Unavailable PROBLEMS Type Condition ICD9-CM Code UGN76-AT Code Onset Dates Condition Status SNOMED Code Problem Attention deficit hyperactivity disorder (ADHD), unspecified ADHD type F90.9 Active 638864088 Problem Unspecified backache 724.5 Active 599657745 Problem Moderate episode of recurrent major depressive disorder F33.1 Active 674580361 Problem Lumbago with sciatica, right side M54.41 Active 511242977 Problem MDD (major depressive disorder), recurrent episode, mild F33.0 Active 36550047 Problem Dysthymia F34.1 Active 31900461 Problem Lumbago with sciatica, left side M54.42 Active 911850761 Problem Other chronic pain G89.29 Active 88942010 ALLERGIES No Known Allergies ENCOUNTERS Encounter Location Date Diagnosis [place] [id number] [place] [address]014- 4891 May, [place] [address], [place] [address] Apr, [facility] [id number] [place] [address] 24488- 7110 Mar, [facility] [id number] [place] [address] 90604- 5059 Feb, [place] [address] [id number] [place] [address]99- 1998 Feb, Moderate episode of recurrent major depressive disorder F33.1 and Attention deficit hyperactivity disorder (ADHD), unspecified ADHD type F90.9 [facility] [id number] [place] [address] 10862- 6530 Jan, [facility] [address], [place] [address] Dec, MDD (major depressive disorder), recurrent episode, mild F33.0 [facility] [address] [address] 53[address] Dec, [facility] [address], [place] [address] Dec, [facility] [address], [place] [address] Dec, MDD (major depressive disorder), recurrent episode, mild F33.0 and Attention deficit hyperactivity disorder (ADHD), unspecified ADHD type F90.9 [facility] [id number] [address] 69[address] Oct, MDD (major depressive disorder), recurrent episode, mild F33.0 and Attention deficit hyperactivity disorder (ADHD), unspecified ADHD type F90.9 [facility] [id number] [address] 5865 Aug, Lumbago with sciatica, left side M54.42 ; Lumbago with sciatica, right side M54.41 and Other chronic pain G89.29 [facility] [id number] [address] June, Attention deficit hyperactivity disorder (ADHD), unspecified ADHD type F90.9 and MDD (major depressive disorder), recurrent episode, mild F33.0 [facility] [id number] [address] 2653 June, Attention deficit hyperactivity disorder (ADHD), unspecified ADHD type F90.9 [facility] [id number], [place] [address] 8360 May, Attention deficit hyperactivity disorder (ADHD), unspecified ADHD type F90.9 [facility] [id number] [address] 5[address] May, Attention deficit hyperactivity disorder (ADHD), unspecified ADHD type F90.9 and MDD (major depressive disorder), recurrent episode, mild F33.0 [facility] [id number] [place] [address] 39360- 5491 Apr, MDD (major depressive disorder), recurrent episode, mild F33.0 [facility] [id number] [place] [address] 61254- 3910 Apr, MDD (major depressive disorder), recurrent episode, mild F33.0 [facility] [id number] [place] [address] 29759- 8437 Mar, MDD (major depressive disorder), recurrent episode, mild F33.0 [facility] [address], [place] [address] 8824 Mar, Cervicalgia M54.2 ; Radiculopathy of cervical region M54.12 ; Lumbago with sciatica, left side M54.42 ; Lumbago with sciatica, right side M54.41 and Other chronic pain G89.29 [facility] [id number] [place] [address] 71093- 6275 Mar, MDD (major depressive disorder), recurrent episode, mild F33.0 and Attention deficit disorder F90.0 [facility] [address], [place] [address]- 0979 Mar, [facility] [id number] [place] [address] 54982- 8409 Feb, [facility] [address], [place] [address]- 1484 Jan, [facility] [id number] [place] [address] 26209- 8055 Dec, [facility] [address], [place] [address]- 1188 Dec, [facility] [id number] [address]- 0272 Nov, MDD (major depressive disorder), recurrent episode, mild F33.0 ; Attention deficit disorder F90.0 and 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 [facility] [id number] [address] 5012 Oct, [facility] [id number] [place] [address] 80628- 0108 Oct, [facility] [id number] [place] [address] 62906- 6694 Sep, Attention deficit hyperactivity disorder (ADHD), unspecified ADHD type F90.9 [facility] [address] [id number] [place] [address] 41127- 5084 Jul, Attention deficit hyperactivity disorder (ADHD), unspecified ADHD type F90.9 [facility] [address] [place] [id number] [place] [address] 94505- 7163 Jul, Attention deficit hyperactivity disorder (ADHD), unspecified ADHD type F90.9 ; Dysthymia F34.1 ; Abnormal weight gain R63.5 and Family history of heart disease Z82.49 [facility] [address], [place] [address]- 2782 May, [facility] [address], [place] [address]- 0155 Apr, [facility] [address] [id number] [address] 0920 Mar, [facility] [address], [place] [address]- 7614 Feb, [facility] [address] [place] [id number] [place] [address] 45252- 9505 Jan, [facility] [address], [place] [address]- 3391 Jan, [facility] [address] [place] [id number] [place] [address] 50761- 2225 Dec, [facility] [id number] [place] [address] 004815- 0325 Dec, Attention deficit disorder F90.0 [facility] [id number] [place] [address] 853815- 1172 Dec, Attention deficit disorder F90.0 [facility] [id number] [place] [address] 29622- 8288 Nov, [facility] [id number] [place] [address] 15997- 7658 Nov, Attention deficit disorder F90.0 and Low back pain, unspecified back pain laterality, with sciatica presence unspecified M54.5 [facility] [id number] [place] [address] 18586- 6845 Sep, [facility] [id number] [place] [address] 36211- 5489 Sep, Irritable bowel syndrome with constipation 564.1 and Back pain 724.5 [facility] [id number] [place] [address] 42416- 5926 Aug, [facility] [id number] [place] [address] 14222- 6416 Aug, [facility] [id number] [place] [address] 88885- 7087 Jul, [facility] [id number] [place] [address] 50739- 8227 Jul, [facility] [id number] [place] [address] 737520- 6760 June, [facility] [id number] [place] [address] 839045- 5173 June, [facility] [address], [place] [address]- 1085 May, [facility] [id number] [address]- 2526 13 May, 2014 [facility] [address] [id number] [place] [address]- 8925 26 Apr, 2014 [facility] [place] [facility] [address] [id number] [place] [address]- 2226 26 Apr, 2014 [facility] [address] [id number] [place] [address]- 6356 19 Apr, 2014 [facility] [place] [facility] [address] [id number] [place] [address]- 4605 19 Apr, 2014 [facility] [place] [facility] [address] [id number] [place] [address]- 1808 17 Apr, 2014 [facility] [place] [facility] [address] [id number] [place] [address]- 2848 17 Apr, 2014 [facility] [place] [facility] [address] [id number] [place] [address]- 6343 17 Apr, 2014 [facility] [address] [id number] [place] [address]- 8346 17 Apr, 2014 [facility] [place] [facility] [address] [id number] [place] [address]- 5079 16 Apr, 2014 [facility] [address] [id number] [place] [address]- 2146 16 Apr, 2014 [facility] [place] [facility] [address] [id number] [place] [address]- 6403 14 Apr, 2014 [facility] [place] [facility] [address] [id number] [place] [address]- 0858 14 Apr, 2014 [facility] [place] [facility] [address] [id number] [place] [address]- 9280 09 Apr, 2014 [facility] [place] [facility] [address] [id number] [place] [address]- 4546 09 Apr, 2014 [facility] [place] [facility] [address] [id number] [place] [address]- 5040 Apr, 2014 [facility] [place] [facility] [address] [id number] [place] [address]- 8858 Apr, 2014 [facility] [place] [facility] [address] [id number] [place] [address]- 0374 Apr, 2014 [facility] [place] [facility] [address] [id number] [place] [address]- 6060 Apr, 2014 [facility] [place] [facility] [address] [id number] [place] [address]- 0254 Mar, 2014 [facility] [place] [facility] [address] [id number] [place] [address]- 3341 Mar, 2014 [facility] [place] [facility] [address] [id number] [place] [address]- 4784 24 Mar, 2014 [facility] [place] [facility] [address] [facility] [id number] [place] [address]- 4907 24 Mar, 2014 [facility] [place] [facility] [address] [facility] [id number] [place] [address]- 0546 Mar, 2014 [facility] [place] [facility] [address] [facility] [id number] [place] [address]- 9557 Mar, 2014 [facility] [place] [facility] [address] [facility] [id number] [place] [address]- 6064 Mar, 2014 [facility] [place] [facility] [address] [facility] [id number] [place] [address]- 0925 18 Mar, 2014 [facility] [place] [facility] [address] [facility] [id number] [place] [address]- 4249 17 Mar, 2014 [facility] [place] [facility] [address] [facility] [id number] [place] [address]- 9679 14 Mar, 2014 [facility] [place] [facility] [address] [facility] [id number] [place] [address]- 4950 14 Mar, 2014 [facility] [place] [facility] [address] [facility] [id number] [place] [address]- 7007 12 Mar, 2014 [facility] [place] [facility] [address] [id number] [place] [address]- 6615 Mar, [facility] [place] [facility] [address] [id number] [place] [address]- 7230 Feb, [facility] [place] [facility] [address] [id number] [place] [address]- 5143 Feb, [facility] [place] [facility] [address] [id number] [place] [address]- 7851 Feb, [facility] [place] [facility] [address] [id number] [place] [address]- 2429 Feb, [facility] [place] [facility] [address] [id number] [place] [address]- 0116 Jan, [facility] [place] [facility] [address] [id number] [place] [address]- 1629 Jan, [facility] [place] [facility] [address] [id number] [place] [address]- 6190 Jan, [facility] [place] [facility] [address] [id number] [place] [address]- 5574 Jan, [facility] [place] [facility] [address] [id number] [place] [address]- 9143 Dec, [facility] [place] [facility] [address] [id number] [place] [address]- 6828 Dec, [facility] [place] [facility] [address] [id number] [place] [address]- 1515 Nov, [facility] [place] [facility] [address] [id number] [place] [address]- 3822 Nov, [facility] [place] [facility] [address] [id number] [place] [address]- 0603 Oct, [facility] [place] [facility] [address] [id number] [place] [address]- 6344 Oct, [facility] [place] [facility] [address] [id number] [place] [address]- 5511 Oct, [facility] [place] [facility] [address] [id number] [place] [address]- 4635 Oct, [facility] [place] [facility] [address] [id number] [place] [address]- 3134 Sep, [facility] [place] [facility] [address] [facility] [id number] [place] [address]- 4687 Sep, [facility] [place] [facility] [address] [id number] [place] [address]- 7573 June, [facility] [place] [facility] [address] [id number] [place] [address]- 5255 June, [facility] [place] [facility] [address] [facility] [id number] [place] [address]- 8785 Apr, [facility] [place] [facility] [address] [facility] [id number] [place] [address]- 6898 Apr, [facility] [place] [facility] [address] [id number] [place] [address]- 4337 Mar, [facility] [place] [facility] [address] [id number] [place] [address]- 7336 Mar, [facility] [place] [facility] [address] [facility] [id number] [place] [address]- 6973 Mar, [facility] [place] [facility] [address] [id number] [place] [address]- 1173 Mar, [facility] [place] [facility] [address] [facility] [id number] [address]- 5745 Mar, [facility] [place] [facility] [address] [id number] [place] [address]- 1468 Mar, [facility] [place] [facility] [address] [facility] [id number] [place] [address]- 7474 24 Mar, 2013 [facility] [place] [facility] [address] [facility] [id number] [place] [address]- 3671 14 Mar, 2013 [facility] [place] [facility] [id number], [place] [address]- 2245 Mar, [facility] [address], [place] [address]- 5901 Mar, [facility] [address], [place] [address]- 2120 Mar, [facility] [address] 8358 Jan, [facility] [address], [place] [address]- 8224 Jan, [facility] [address], [place] [address]- 5797 Jan, [facility] [address], [place] [address]- 1324 Jan, [facility] [address] [place] [address]- 9651 Jan, [facility] [id number], [place] [address]- 9679 Jan, IMMUNIZATIONS No Known Immunizations SOCIAL HISTORY Never Assessed REASON FOR VISIT intake- Denny TRIMBLE PLAN OF CARE Activity Details Follow Up 6 Weeks Reason: VITAL SIGNS Height 67 in 2016-11-07 Weight 224.6 lbs 2016-11-07 Heart Rate 88 bpm 2016-11-07 Respiratory Rate 20 2016-11-07 BMI 35.17 kg/m2 2016-11-07 Blood pressure systolic 142 mmHg 2016-11-07 Blood pressure diastolic 82 mmHg 2016-11-07 MEDICATIONS Medication Instructions Dosage Frequency Start Date End Date Duration Status Adderall 15 MG Orally twice a day 1 tablet 12h Oct, 28 days Active Cymbalta 60 mg Orally Once a day in the morning 1 capsule Active Adderall 5 MG Orally Twice a day (take with 15mg twice a day) 1 tablet Oct, 28 days Active Gabapentin 300 MG Orally Three times a day 1 capsule 8h Aug, 30 days Active RESULTS No Results PROCEDURES No [...]
--- OUTSIDE RECORDS SUMMARY | 2017-11-30 13:30 | XMS REPORT ---
Author Author JOCELYN LYNNE Organization [facility] Address [address] [place] [address] Care Team Providers Care Flight Engineer Instructor Name Role Phone MAGED JOCELYN Unavailable PROBLEMS Type Condition ICD9-CM Code MBY78-FL Code Onset Dates Condition Status SNOMED Code Problem Dysthymia F34.1 Active 45677790 Problem MDD (major depressive disorder), recurrent episode, mild F33.0 Active 13598252 Problem Attention deficit hyperactivity disorder (ADHD), unspecified ADHD type F90.9 Active 457248146 Problem Unspecified backache 724.5 Active 667502807 Problem Other chronic pain G89.29 Active 70136522 Problem Attention deficit hyperactivity disorder (ADHD), predominantly inattentive type F90.0 Active 61963328 Problem Lumbago with sciatica, left side M54.42 Active 884373881 Problem Other chronic pain G89.29 Active 07610328 Problem Moderate episode of recurrent major depressive disorder F33.1 Active 297718838 Problem Lumbago with sciatica, right side M54.41 Active [id number] ALLERGIES No Information ENCOUNTERS Encounter Location Date Diagnosis [facility] [id number] [place] [address] Jul, [facility] [id number] [place] [address]35- 3[address] June, Lumbago with sciatica, right side M54.41 ; Other chronic pain G89.29 ; Attention deficit hyperactivity disorder (ADHD), predominantly inattentive type F90.0 and Cervical neuritis M54.12 [facility] [id number] [place] [address]38- 4805 June, Moderate episode of recurrent major depressive disorder F33.1 ; Attention deficit hyperactivity disorder (ADHD), unspecified ADHD type F90.9 and MDD (major depressive disorder), recurrent episode, mild F33.0 [facility] [place] [facility] [address] [id number] [place] [address] June, [facility] [address] [id number] [place] May, [facility] [place] [address] [facility] [id number] [place] [address] 6[address] Apr, [facility] [address] [id number] [place] [address] 8696 Mar, [facility] [address] [id number] [place] [address] 1596 Feb, [facility] [address] [facility] [id number] [place] [address] 2596 Feb, Moderate episode of recurrent major depressive disorder F33.1 and Attention deficit hyperactivity disorder (ADHD), unspecified ADHD type F90.9 [facility] [address] [facility] [id number] [place] [address] Jan, [facility] [address] [facility] [id number] [place] [address] Dec, MDD (major depressive disorder), recurrent episode, mild F33.0 [facility] [place] [address] [facility] [id number] [place] [address] 7326 Dec, [facility] [place] [facility] [address] [facility] [id number] [place] [address] 5[address] Dec, [facility] [place] [facility] [address] [facility] [id number] [place] [address] 6596 Dec, MDD (major depressive disorder), recurrent episode, mild F33.0 and Attention deficit hyperactivity disorder (ADHD), unspecified ADHD type F90.9 [facility] [address] [id number] [place] [address] Oct, MDD (major depressive disorder), recurrent episode, mild F33.0 and Attention deficit hyperactivity disorder (ADHD), unspecified ADHD type F90.9 [facility] [id number] [address] Aug, Lumbago with sciatica, left side M54.42 ; Lumbago with sciatica, right side M54.41 and Other chronic pain G89.29 [facility] [address] [address] June, Attention deficit hyperactivity disorder (ADHD), unspecified ADHD type F90.9 and MDD (major depressive disorder), recurrent episode, mild F33.0 [facility] [address] [address] 3[address] June, Attention deficit hyperactivity disorder (ADHD), unspecified ADHD type F90.9 [facility] [address] [address] 86[address] May, Attention deficit hyperactivity disorder (ADHD), unspecified ADHD type F90.9 [facility] [address] [address] 27[address] May, Attention deficit hyperactivity disorder (ADHD), unspecified ADHD type F90.9 and MDD (major depressive disorder), recurrent episode, mild F33.0 [facility] [address] [address] Apr, MDD (major depressive disorder), recurrent episode, mild F33.0 [facility] [address] [address] 7774 Apr, MDD (major depressive disorder), recurrent episode, mild F33.0 [facility] [address] [address] 27 Mar, 2016 MDD (major depressive disorder), recurrent episode, mild F33.0 [facility] [address] [address] 13 Mar, 2016 Cervicalgia M54.2 ; Radiculopathy of cervical region M54.12 ; Lumbago with sciatica, left side M54.42 ; Lumbago with sciatica, right side M54.41 and Other chronic pain G89.29 [facility] [address] [address] 07 Mar, 2016 MDD (major depressive disorder), recurrent episode, mild F33.0 and Attention deficit disorder F90.0 [facility] [address] [address] 5781 Mar, [facility] [id number] [place] [address]16- 1228 Feb, [facility] [id number] [place] [address] 78757- 2916 Jan, [facility] [id number] [address] 6[address] Dec, [facility] [id number] [address] 06[address] Dec, [facility] [address] [address] Nov, MDD (major depressive disorder), recurrent episode, mild F33.0 ; Attention deficit disorder F90.0 and 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 [facility] [address] [address] 70[address] Oct, [facility] [address] [address]- 9[address] Oct, [facility] [address] [address]- 8319 Sep, Attention deficit hyperactivity disorder (ADHD), unspecified ADHD type F90.9 [facility] [address] [address]- 70[address] Jul, Attention deficit hyperactivity disorder (ADHD), unspecified ADHD type F90.9 [facility] [address] [address] 09 Harsha, 2016 Attention deficit hyperactivity disorder (ADHD), unspecified ADHD type F90.9 ; Dysthymia F34.1 ; Abnormal weight gain R63.5 and Family history of heart disease Z82.49 [facility] [id number] [place] [address]26- 5006 May, [facility] [id number] [place] [address]- 1978 Apr, [facility] [id number] [place] [address] 01092- 7419 Mar, [facility] [id number] [place] [address] 44308- 3307 Feb, [facility] [id number] [place] [address] 94099- 2093 Jan, [facility] [id number] [place] [address] 98598- 1169 Jan, [facility] [id number] [place] [address] 67898- 5307 Dec, [facility] [id number] [place] [address] 07029- 6539 Dec, Attention deficit disorder F90.0 [facility] [id number] [place] [address] 56623- 7008 Dec, Attention deficit disorder F90.0 [facility] [id number] [place] [address] 15327- 7410 Nov, [facility] [id number] [place] [address] 16150- 4662 Nov, Attention deficit disorder F90.0 and Low back pain, unspecified back pain laterality, with sciatica presence unspecified M54.5 [facility] [id number] [address]- 54[address] Sep, [facility] [id number] [place] [address] 77290- 8312 Sep, Irritable bowel syndrome with constipation 564.1 and Back pain 724.5 [facility] [address] [id number] [place] [address]- 0586 Aug, [facility] [address] [facility] [id number] [place] [address]- 4586 Aug, [facility] [address] [facility] [id number] [place] [address]- 3096 Jul, [facility] [address] [id number] [place] [address]- 7106 Jul, [facility] [address] [facility] [id number] [place] [address]- 7786 June, [facility] [address] [facility] [id number] [place] [address]- 0736 June, [facility] [id number] [place] [address]- 4760 May, [facility] [address] [facility] [id number] [place] [address]- 2371 May, [facility] [id number] [place] [address]- 6182 Apr, [facility] [address] [facility] [id number] [place] [address]- 6510 Apr, [facility] [address] [facility] [id number] [place] [address]- 4873 Apr, [facility] [address] [facility] [id number] [address]- 0876 Apr, [facility] [place] [facility] [address] [facility] [id number] [place] [address]- 4166 Apr, [facility] [address] [facility] [id number] [address]- 6846 Apr, [facility] [address] [facility] [id number] [address]- 1336 Apr, [facility] [place] [facility] [address] [id number] [place] [address]- 4251 17 Apr, 2014 [facility] [place] [facility] [address] [id number] [place] [address]- 1240 Apr, [facility] [place] [facility] [address] [id number] [place] [address]- 7219 16 Apr, 2014 [facility] [place] [facility] [address] [id number] [place] [address]- 8445 Apr, [facility] [place] [facility] [address] [id number] [place] [address]- 4108 Apr, [facility] [place] [facility] [address] [id number] [place] [address]- 1093 Apr, [facility] [place] [facility] [address] [id number] [place] [address]- 3365 Apr, [facility] [place] [facility] [address] [id number] [place] [address]- 1793 Apr, [facility] [place] [facility] [address] [id number] [place] [address]- 3740 Apr, [facility] [place] [facility] [address] [id number] [place] [address]- 8300 Apr, [facility] [place] [facility] [address] [id number] [place] [address]- 2990 Apr, [facility] [place] [facility] [address] [id number] [address]- 8459 Mar, 2014 [facility] [place] [facility] [address] [id number] [place] [address]- 3807 Mar, [facility] [place] [facility] [address] [id number] [place] [address]- 0528 Mar, [facility] [place] [facility] [address] [id number] [place] [address]- 8563 Mar, [facility] [place] [facility] [address] [id number][place] [address]- 3363 Mar, 2014 [facility] [place] [facility] [address] [id number] [place] [address]- 9446 Mar, 2014 [facility] [place] [facility] [address] [id number] [place] [address]- 1786 Mar, 2014 [facility] [place] [facility] [address] [id number] [place] [address]- 0646 Mar, 2014 [facility] [place] [facility] [address] [id number] [place] [address]- 9316 17 Mar, 2014 [facility] [place] [facility] [address] [id number] [place] [address]- 8802 Mar, 2014 [facility] [place] [facility] [address] [facility] [id number] [place] [address]- 0871 Mar, 2014 [facility] [place] [facility] [id number] [place] [address]- 4081 Mar, 2014 [facility] [place] [facility] [address] [facility] [id number] [place] [address]- 2818 Mar, [facility] [place] [facility] [id number] [place] [address]- 1635 Feb, [facility] [place] [facility] [address] [facility] [id number] [place] [address]- 6915 Feb, [facility] [place] [facility] [address] [facility] [id number] [place] [address]- 0604 Feb, [facility] [place] [facility] [address] [id number] [place] [address]- 5472 Feb, [facility] [place] [facility] [address] [id number] [place] [address]- 7350 Jan, [facility] [place] [facility] [address] [facility] [id number] [place] [address]- 3206 Jan, [facility] [place] [facility] [address] [facility] [id number] [place] [address]- 6538 Jan, [facility] [place] [facility] [address] [id number] [place] [address]- 1850 Jan, [facility] [place] [facility] [address] [id number] [place] [address]- 0450 Dec, [facility] [place] [facility] [address] [id number] [place] [address]- 0737 Dec, [facility] [place] [facility] [address] [id number] [place] [address]- 4385 Nov, [facility] [place] [facility] [address] [id number] [place] [address]- 6567 Nov, [facility] [place] [facility] [address] [id number] [place] [address]- 5148 Oct, [facility] [place] [facility] [address] [id number] [place] [address]- 7011 Oct, [facility] [place] [facility] [address] [id number] [place] [address]- 9395 Oct, [facility] [place] [facility] [address] [id number] [place] [address]- 5404 Oct, [facility] [place] [facility] [address] [id number] [place] [address]- 4163 Sep, [facility] [place] [facility] [address] [id number] [place] [address]- 7429 Sep, [facility] [place] [facility] [address] [id number] [place] [address]- 9909 June, [facility] [place] [facility] [address] [id number] [place] [address]- 6018 June, [facility] [place] [facility] [address] [id number] [place] [address]- 3833 Apr, [facility] [place] [facility] [address] [id number] [place] [address]- 7875 Apr, [facility] [place] [facility] [address] [id number] [place] [address]- 9638 Mar, [facility] [place] [facility] [address] [id number] [place] [address]- 4076 Mar, [facility] [place] [facility] [address] [id number] [place] [address]- 1006 Mar, [facility] [place] [facility] [address] [id number] [place] [address]- 1476 Mar, [facility] [place] [facility] [address] [id number] [place] [address] 2546 Mar, [facility] [place] [facility] [address] [id number] [place] [address]- 9726 Mar, [facility] [place] [facility] [address] [id number] [place] [address]- 4168 Mar, [facility] [place] [facility] [address] [id number] [place] [address]- 7678 Mar, [facility] [place] [facility] [address] [id number] [place] [address]- 6742 14 Mar, 2013 [facility] [place] [facility] [address] [facility] [id number] [place] [address]- 1819 Mar, [facility] [place] [facility] [address] [facility] [id number] [place] [address]- 7523 04 Mar, 2013 [facility] [place] [facility] [address] [facility] [id number] [place] [address]- 9873 Jan, [facility] [place] [facility] [address] [id number] [place] [address] 2546 Jan, [facility] [place] [facility] [address] [id number] [place] [address] 2546 Jan, [facility] [place] [facility] [address] [id number] [place] [address]- 2546 Jan, [facility] [place] [facility] [address] [facility] [id number] [place] [address]- 5119 Jan, [facility] [address] [facility] [id number] [place] [address]- 1234 Jan, IMMUNIZATIONS No Known Immunizations SOCIAL HISTORY Never Assessed REASON FOR VISIT adderall 02/08/2017 PLAN OF CARE VITAL SIGNS MEDICATIONS Medication Instructions Dosage Frequency Start Date End Date Duration Status Adderall 20 mg Orally 2 times a day 1 tablet 12h Jan, 28 days Active RESULTS No Results PROCEDURES [...]
--- OUTSIDE RECORDS SUMMARY | 2017-11-30 13:30 | XMS REPORT ---
Author Author ELISA Painting Organization [facility] Address [address] [place] [address] Care Team Providers Care Underground Miner Name Role Phone joeSPENCER MessinaY Unavailable PROBLEMS Type Condition ICD9-CM Code [id number] Code Onset Dates Condition Status SNOMED Code Problem Unspecified backache 724.5 Active 229737703 Problem Lumbago with sciatica, right side M54.41 Active 714480076 Problem Lumbago with sciatica, left side M54.42 Active 510235893 Problem Dysthymia F34.1 Active 08241217 Problem Attention deficit hyperactivity disorder (ADHD), unspecified ADHD type F90.9 Active 406497971 Problem Other chronic pain G89.29 Active 75989438 Problem MDD (major depressive disorder), recurrent episode, mild F33.0 Active 05313066 ALLERGIES No Information SOCIAL HISTORY Never Assessed PLAN OF CARE VITAL SIGNS MEDICATIONS Medication Instructions Dosage Frequency Start Date End Date Duration Status Adderall 20 mg Orally twice a day 1 tablet 12h June, 28 days Active Cymbalta 60 mg Orally Once a day 1 capsule (+30mg cap) 24h 30 days Active Duloxetine HCl 30 MG Orally Once a day 1 capsule (+60mg cap) 24h May, 30 day(s) Active RESULTS No Results PROCEDURES [...]
--- OUTSIDE RECORDS SUMMARY | 2017-11-30 13:30 | XMS REPORT ---
Author Author ELISA Painting Organization [facility] Address [address] [place] [address] Care Team Providers Care Hotel Controller Name Role Phone ELISA Painting Unavailable PROBLEMS Type Condition ICD9-CM Code [id number] Code Onset Dates Condition Status SNOMED Code Problem Unspecified backache 724.5 Active 352569139 Problem Lumbago with sciatica, right side M54.41 Active 591738971 Problem Lumbago with sciatica, left side M54.42 Active 186895190 Problem Dysthymia F34.1 Active 03650074 Problem Attention deficit hyperactivity disorder (ADHD), unspecified ADHD type F90.9 Active 879741829 Problem Other chronic pain G89.29 Active 27537569 Problem MDD (major depressive disorder), recurrent episode, mild F33.0 Active 16633478 ALLERGIES No Known Allergies SOCIAL HISTORY No smoking Hx information available PLAN OF CARE VITAL SIGNS MEDICATIONS Medication Instructions Dosage Frequency Start Date End Date Duration Status Adderall 20 mg Orally twice a day 1 tablet 12h Dec, 28 days Active RESULTS No Results PROCEDURES No Known procedures IMMUNIZATIONS No Known Immunizations
--- OUTSIDE RECORDS SUMMARY | 2017-11-30 13:30 | XMS REPORT ---
Author Author Mert ELISA Organization [facility] Address [address] [place] [address] Care Team Providers Care Topper Packer Name Role Phone ELISA Painting Unavailable PROBLEMS Type Condition ICD9-CM Code QWL47-RA Code Onset Dates Condition Status SNOMED Code Problem Unspecified backache 724.5 Active 991496295 Problem Lumbago with sciatica, right side M54.41 Active 803815207 Problem Lumbago with sciatica, left side M54.42 Active 019235337 Problem Dysthymia F34.1 Active 32185144 Problem Attention deficit hyperactivity disorder (ADHD), unspecified ADHD type F90.9 Active 200269635 Problem Other chronic pain G89.29 Active 17945552 Problem MDD (major depressive disorder), recurrent episode, mild F33.0 Active 25329436 ALLERGIES No Known Allergies SOCIAL HISTORY Never Assessed PLAN OF CARE Activity Details Follow Up 2 Months Reason: VITAL SIGNS Height 67 in 2016-03-29 Weight 223.0 lbs 2016-03-29 Heart Rate 84 bpm 2016-03-29 Respiratory Rate 20 2016-03-29 BMI 34.92 kg/m2 2016-03-29 Blood pressure systolic 139 mmHg 2016-03-29 Blood pressure diastolic 85 mmHg 2016-03-29 MEDICATIONS Medication Instructions Dosage Frequency Start Date End Date Duration Status Cymbalta 60 mg Orally Once a day 2 capsule 24h 30 days Active Adderall 20 mg Orally twice a day 1 tablet 12h Dec, Active RESULTS Name Result Date Reference Range URINE DRUG SCREEN (IN HOUSE) 2016-03-29 Lot # [id number] Exp date Control + COCAINE Negative AMPH Positive MTD Negative THC Negative OPIATE Negative BENZO Negative PCP Negative BAR Negative OXY Negative MAMP Negative TCA Negative BUP MDMA Negative PROCEDURES Procedure Date Ordered Result Body Site DRUG TEST PRSMV DIR OPT OBS Mar 29, 2016 IMMUNIZATIONS No Known Immunizations MEDICAL (GENERAL) HISTORY Type Description Date Medical History constipation Medical History allergic rhinitis Medical History sciatica Medical History chronic pain Medical History mood disorder Medical History menorrhagia Medical History cervical radiculopathy Medical History concussions/head injuries around 11 Surgical History tonsillectomy 1990 Hospitalization History Surgery(s)/Childbirth(s) only
--- OUTSIDE RECORDS SUMMARY | 2017-11-30 13:30 | XMS REPORT ---
Author Author JOCELYN LYNNE Organization [facility] Address [address] [place] [address] Care Team Providers Care Rn Transfer Name Role Phone MAGED JOCELYN Unavailable PROBLEMS Type Condition ICD9-CM Code [id number] Code Onset Dates Condition Status SNOMED Code Problem Dysthymia F34.1 Active 72336789 Problem MDD (major depressive disorder), recurrent episode, mild F33.0 Active 37995078 Problem Attention deficit hyperactivity disorder (ADHD), unspecified ADHD type F90.9 Active 818921010 Problem Unspecified backache 724.5 Active 012098700 Problem Other chronic pain G89.29 Active 80797307 Problem Attention deficit hyperactivity disorder (ADHD), predominantly inattentive type F90.0 Active 84953665 Problem Lumbago with sciatica, left side M54.42 Active 524928206 Problem Other chronic pain G89.29 Active 34637684 Problem Moderate episode of recurrent major depressive disorder F33.1 Active 120783600 Problem Lumbago with sciatica, right side M54.41 Active 703984086 ALLERGIES No Information ENCOUNTERS Encounter Location Date Diagnosis [facility] [id number] [place] [address]- [address] Jul, [facility] [id number] [place] [address] 97671- 6146 June, Lumbago with sciatica, right side M54.41 ; Other chronic pain G89.29 ; Attention deficit hyperactivity disorder (ADHD), predominantly inattentive type F90.0 and Cervical neuritis M54.12 [facility] [id number] [place] [address] 68921- 1137 June, Moderate episode of recurrent major depressive disorder F33.1 ; Attention deficit hyperactivity disorder (ADHD), unspecified ADHD type F90.9 and MDD (major depressive disorder), recurrent episode, mild F33.0 [facility] [place] [facility] [address] [id number] [place] [address] June, [facility] [address] [id number] [place] [address] May, [facility] [address] [facility] [id number] [place] [address] Apr, [facility] [address] [id number] [place] [address] 3556 Mar, [facility] [address] [id number] [place] [address] 3[address] Feb, [facility] [address] [facility] [id number] [place] [address] 2516 Feb, Moderate episode of recurrent major depressive disorder F33.1 and Attention deficit hyperactivity disorder (ADHD), unspecified ADHD type F90.9 [facility] [address] [facility] [id number] [place] [address] Jan, [facility] [address] [facility] [id number] [place] [address] Dec, MDD (major depressive disorder), recurrent episode, mild F33.0 [facility] [address] [facility] [id number] [place] [address] 74[address] Dec, [facility] [place] [facility] [address] [facility] [id number] [place] [address] 8936 Dec, [facility] [place] [facility] [address] [facility] [id number] [place] [address] Dec, MDD (major depressive disorder), recurrent episode, mild F33.0 and Attention deficit hyperactivity disorder (ADHD), unspecified ADHD type F90.9 [facility] [address] [id number] [place] [address] Oct, MDD (major depressive disorder), recurrent episode, mild F33.0 and Attention deficit hyperactivity disorder (ADHD), unspecified ADHD type F90.9 [facility] [id number] [address] Aug, Lumbago with sciatica, left side M54.42 ; Lumbago with sciatica, right side M54.41 and Other chronic pain G89.29 [facility] [address] [address] June, Attention deficit hyperactivity disorder (ADHD), unspecified ADHD type F90.9 and MDD (major depressive disorder), recurrent episode, mild F33.0 [facility] [address] [address] June, Attention deficit hyperactivity disorder (ADHD), unspecified ADHD type F90.9 [facility] [address] [address] 7[address] May, Attention deficit hyperactivity disorder (ADHD), unspecified ADHD type F90.9 [facility] [address] [address] May, Attention deficit hyperactivity disorder (ADHD), unspecified ADHD type F90.9 and MDD (major depressive disorder), recurrent episode, mild F33.0 [facility] [address] [address] 8[address] Apr, MDD (major depressive disorder), recurrent episode, mild F33.0 [facility] [address] [address] 3504 Apr, MDD (major depressive disorder), recurrent episode, mild F33.0 [facility] [address] [address] 27 Mar, 2016 MDD (major depressive disorder), recurrent episode, mild F33.0 [facility] [address] [address] 2843 13 Mar, 2016 Cervicalgia M54.2 ; Radiculopathy of cervical region M54.12 ; Lumbago with sciatica, left side M54.42 ; Lumbago with sciatica, right side M54.41 and Other chronic pain G89.29 [facility] [address] [address] 07 Mar, 2016 MDD (major depressive disorder), recurrent episode, mild F33.0 and Attention deficit disorder F90.0 [facility] [address] [address] 8253 Mar, [facility] [id number] [place] [address] 20174- 0723 Feb, [facility] [id number] [place] [address] 03370- 3000 Jan, [facility] [id number] [address] 8942 Dec, [facility] [address] [id number] [address] 1660 Dec, [facility] [address] [address] Nov, MDD (major depressive disorder), recurrent episode, mild F33.0 ; Attention deficit disorder F90.0 and Other long term care social worker (current) drug therapy Z79.899 [facility] [address] [address] 8518 Oct, [facility] [address] [address] Oct, [facility] [address] [address]- 6113 Sep, Attention deficit hyperactivity disorder (ADHD), unspecified ADHD type F90.9 [facility] [address] [address] 7060 Jul, Attention deficit hyperactivity disorder (ADHD), unspecified ADHD type F90.9 [facility] [address] [address]- 4634 09 Harsha, 2016 Attention deficit hyperactivity disorder (ADHD), unspecified ADHD type F90.9 ; Dysthymia F34.1 ; Abnormal weight gain R63.5 and Family history of heart disease Z82.49 [facility] [id number] [place] [address] 67050- 3611 May, [facility] [id number] [place] [address] 17309- 4578 Apr, [facility] [id number] [place] [address] 22346- 0587 Mar, [facility] [id number] [place] [address] 38061- 2837 Feb, [facility] [id number] [place] [address] 93065- 6124 Jan, [facility] [id number] [place] [address] 40481- 9997 Jan, [facility] [id number] [place] [address] 68715- 4314 Dec, [facility] [id number] [place] [address] 02996- 5950 Dec, Attention deficit disorder F90.0 [facility] [id number] [place] [address] 68403- 1333 Dec, Attention deficit disorder F90.0 [facility] [id number] [place] [address] 40146- 7273 Nov, [facility] [id number] [place] [address] 97439- 2840 Nov, Attention deficit disorder F90.0 and Low back pain, unspecified back pain laterality, with sciatica presence unspecified M54.5 [facility] [id number] [address]- 6[address] Sep, [facility] [id number] [place] [address] 77919- 8086 Sep, Irritable bowel syndrome with constipation 564.1 and Back pain 724.5 [facility] [address] [id number] [place] [address]- 8256 Aug, [facility] [address] [facility] [id number] [place] [address]- 3426 Aug, [facility] [address] [facility] [id number] [place] [address]- 2476 Jul, [facility] [address] [id number] [place] [address]- 6856 Jul, [facility] [address] [facility] [id number] [place] [address]- 5686 June, [facility] [address] [facility] [id number] [place] [address]- 5266 June, [facility] [id number] [address]- 4083 May, [facility] [address] [facility] [id number] [place] [address]- 6407 May, [facility] [id number] [address]- 4609 Apr, [facility] [address] [facility] [id number] [place] [address]- 1816 Apr, [facility] [address] [facility] [id number] [place] [address]- 7474 Apr, [facility] [address] [facility] [id number] [address]- 0126 Apr, [facility] [place] [facility] [address] [facility] [id number] [place] [address]- 0846 Apr, [facility] [address] [facility] [id number], [place] [address]- 3766 Apr, [facility] [address] [facility] [id number] [address]- 1206 Apr, [facility] [place] [facility] [address] [id number] [place] [address]- 2200 17 Apr, 2014 [facility] [place] [facility] [address] [id number] [place] [address]- 8625 Apr, [facility] [place] [facility] [address] [id number] [place] [address]- 3125 16 Apr, 2014 [facility] [place] [facility] [address] [id number] [place] [address]- 4020 Apr, [facility] [place] [facility] [address] [id number] [place] [address]- 0446 Apr, [facility] [place] [facility] [address] [id number] [place] [address]- 0402 Apr, [facility] [place] [facility] [address] [id number] [place] [address]- 5992 Apr, [facility] [place] [facility] [address] [id number] [place] [address]- 3837 Apr, [facility] [place] [facility] [address] [id number] [place] [address]- 1026 Apr, [facility] [place] [facility] [address] [id number] [place] [address]- 3824 Apr, [facility] [place] [facility] [address] [id number] [place] [address]- 9835 Apr, [facility] [place] [facility] [address] [id number] [address]- 7879 Mar, 2014 [facility] [place] [facility] [address] [id number] [place] [address]- 5555 Mar, [facility] [place] [facility] [address] [id number] [place] [address]- 0824 Mar, [facility] [place] [facility] [address] [id number] [place] [address]- 4497 Mar, [facility] [place] [facility] [address] [id number] [address]- 4849 Mar, 2014 [facility] [place] [facility] [address] [id number] [place] [address]- 0116 Mar, 2014 [facility] [place] [facility] [address] [id number] [place] [address]- 4346 Mar, 2014 [facility] [place] [facility] [address] [id number] [place] [address]- 8726 Mar, 2014 [facility] [place] [facility] [address] [id number] [place] [address]- 9320 17 Mar, 2014 [facility] [place] [facility] [address] [id number] [place] [address]- 9538 Mar, 2014 [facility] [place] [facility] [address] [facility] [id number] [place] [address]- 9506 Mar, 2014 [facility] [place] [facility] [address] [id number] [address]- 0966 Mar, 2014 [facility] [place] [facility] [address] [facility] [id number] [place] [address]- 9304 Mar, [facility] [place] [facility] [id number] [place] [address]- 4933 Feb, [facility] [place] [facility] [address] [facility] [id number] [place] [address]- 3800 Feb, [facility] [place] [facility] [address] [facility] [id number] [place] [address]- 2770 Feb, [facility] [place] [facility] [address] [id number] [place] [address]- 6817 Feb, [facility] [place] [facility] [address] [id number] [place] [address]- 5867 Jan, [facility] [place] [facility] [address] [facility] [id number] [place] [address]- 6806 Jan, [facility] [place] [facility] [address] [facility] [id number] [place] [address]- 7110 Jan, [facility] [place] [facility] [address] [id number] [place] [address]- 6380 Jan, [facility] [place] [facility] [address] [id number] [place] [address]- 4685 Dec, [facility] [place] [facility] [address] [id number] [place] [address]- 1064 Dec, [facility] [place] [facility] [address] [id number] [place] [address]- 0190 Nov, [facility] [place] [facility] [address] [id number] [place] [address]- 2460 Nov, [facility] [place] [facility] [address] [id number] [place] [address]- 6539 Oct, [facility] [place] [facility] [address] [id number] [place] [address]- 4756 Oct, [facility] [place] [facility] [address] [id number] [place] [address]- 1607 Oct, [facility] [place] [facility] [address] [id number] [place] [address]- 6719 Oct, [facility] [place] [facility] [address] [id number] [place] [address]- 8725 Sep, [facility] [place] [facility] [address] [id number] [place] [address]- 8665 Sep, [facility] [place] [facility] [address] [id number] [place] [address]- 4817 June, [facility] [place] [facility] [address] [id number] [place] [address]- 2430 June, [facility] [place] [facility] [address] [id number] [place] [address]- 6369 Apr, [facility] [place] [facility] [address] [id number] [place] [address]- 8072 Apr, [facility] [place] [facility] [address] [id number] [place] [address]- 4913 Mar, [facility] [place] [facility] [address] [id number] [place] [address]- 1576 Mar, [facility] [place] [facility] [address] [id number] [place] [address]- 3146 Mar, [facility] [place] [facility] [address] [id number] [place] [address]- 7796 Mar, [facility] [place] [facility] [address] [id number] [place] [address] 2546 Mar, [facility] [place] [facility] [address] [id number] [place] [address]- 1366 Mar, [facility] [place] [facility] [address] [id number] [place] [address]- 9026 Mar, [facility] [place] [facility] [address] [id number] [place] [address]- 0135 Mar, [facility] [place] [facility] [address] [id number] [place] [address]- 3680 14 Mar, 2013 [facility] [place] [facility] [address] [facility] [id number] [place] [address]- 7612 Mar, [facility] [place] [facility] [address] [facility] [id number] [place] [address]- 1889 04 Mar, 2013 [facility] [place] [facility] [address] [facility] [id number] [place] [address]- 4756 Jan, [facility] [place] [facility] [address] [id number] [place] [address] 2546 Jan, [facility] [place] [facility] [address] [id number] [place] [address] 2546 Jan, [facility] [place] [facility] [address] [id number] [place] [address]- 2546 Jan, [facility] [place] [facility] [address] [facility] [id number] [place] [address]- 8124 Jan, [facility] [address] [facility] [id number] [place] [address]- 5230 Jan, IMMUNIZATIONS No Known Immunizations SOCIAL HISTORY Never Assessed REASON FOR VISIT PALS-cymbalta PLAN OF CARE VITAL SIGNS MEDICATIONS Medication Instructions Dosage Frequency Start Date End Date Duration Status Cymbalta 60 mg Orally Once a day in the morning 1 capsule 90 days Active Cymbalta 30 MG Orally Once a day 1 capsule 24h Feb, 90 days Active RESULTS No Results PROCEDURES [...]
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
--- OUTSIDE RECORDS SUMMARY | 2017-11-30 13:31 | XMS REPORT ---
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 Name Role Phone JOCELYN LYNNE Unavailable PROBLEMS Type Condition ICD9-CM Code BUT58-LB Code Onset Dates Condition Status SNOMED Code Problem Attention deficit hyperactivity disorder (ADHD), unspecified ADHD type F90.9 Active 303475887 Problem Unspecified backache 724.5 Active 951911262 Problem Moderate episode of recurrent major depressive disorder F33.1 Active 260815719 Problem Lumbago with sciatica, right side M54.41 Active 262474613 Problem MDD (major depressive disorder), recurrent episode, mild F33.0 Active 87613882 Problem Dysthymia F34.1 Active 04565155 Problem Lumbago with sciatica, left side M54.42 Active 240148697 Problem Other chronic pain G89.29 Active 16495042 ALLERGIES No Information ENCOUNTERS Encounter Location Date Diagnosis [facility] [id number] [place] [address]- [address] June, [facility] [address] [address] May, [facility] [id number] [place] [address] 27882- 2399 Apr, [facility] [address] [place] [address]20- 8066 Mar, [facility] [id number] [place] [address] 82697- 9568 Feb, [facility] [address] [place] [address] 57[address]- 0594 Feb, Moderate episode of recurrent major depressive disorder F33.1 and Attention deficit hyperactivity disorder (ADHD), unspecified ADHD type F90.9 [facility] [id number] [address] Jan, [facility] [address] [address] Dec, MDD (major depressive disorder), recurrent episode, mild F33.0 [facility] [address] [address] Dec, [facility] [address] [address] Dec, [facility] [address] [address] Dec, MDD (major depressive disorder), recurrent episode, mild F33.0 and Attention deficit hyperactivity disorder (ADHD), unspecified ADHD type F90.9 [facility] [address] [address] Oct, MDD (major depressive disorder), recurrent episode, mild F33.0 and Attention deficit hyperactivity disorder (ADHD), unspecified ADHD type F90.9 [facility] [id number] [address] Aug, Lumbago with sciatica, left side M54.42 ; Lumbago with sciatica, right side M54.41 and Other chronic pain G89.29 [facility] [id number] [address] June, Attention deficit hyperactivity disorder (ADHD), unspecified ADHD type F90.9 and MDD (major depressive disorder), recurrent episode, mild F33.0 [facility] [address] [address] 6[address] June, Attention deficit hyperactivity disorder (ADHD), unspecified ADHD type F90.9 [facility] [id number] [address] May, Attention deficit hyperactivity disorder (ADHD), unspecified ADHD type F90.9 [facility] [address] [address] May, Attention deficit hyperactivity disorder (ADHD), unspecified ADHD type F90.9 and MDD (major depressive disorder), recurrent episode, mild F33.0 [facility] [address] [address] 67[address] Apr, MDD (major depressive disorder), recurrent episode, mild F33.0 [facility] [address] [address]- 0[address] Apr, MDD (major depressive disorder), recurrent episode, mild F33.0 [facility] [address] [address] 49[address] Mar, MDD (major depressive disorder), recurrent episode, mild F33.0 [facility] [address] [address] 5788 Mar, Cervicalgia M54.2 ; Radiculopathy of cervical region M54.12 ; Lumbago with sciatica, left side M54.42 ; Lumbago with sciatica, right side M54.41 and Other chronic pain G89.29 [facility] [address] [address] 07 Mar, 2016 MDD (major depressive disorder), recurrent episode, mild F33.0 and Attention deficit disorder F90.0 [facility] [address] [address]- 8031 Mar, [facility] [address] [address]- 9491 Feb, [facility] [id number] [address]- 3426 Jan, [facility] [address] [address]- 6075 Dec, [facility] [id number] [address]- 4278 Dec, [facility] [address] [address] Nov, MDD (major depressive disorder), recurrent episode, mild F33.0 ; Attention deficit disorder F90.0 and 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 [facility] [address] [address]- 8941 Oct, [facility] [id number] [address]- 0441 Oct, [facility] [id number] [place] [address] 44605- 8515 Sep, Attention deficit hyperactivity disorder (ADHD), unspecified ADHD type F90.9 [facility] [address] [address]- 7515 Jul, Attention deficit hyperactivity disorder (ADHD), unspecified ADHD type F90.9 [facility] [address] [address]- 1826 Jul, Attention deficit hyperactivity disorder (ADHD), unspecified ADHD type F90.9 ; Dysthymia F34.1 ; Abnormal weight gain R63.5 and Family history of heart disease Z82.49 [facility] [address] [address]- 5[address] May, [facility] [id number] [address]- 1033 Apr, [facility] [address] [address]- 0581 Mar, [facility] [address] [address] Feb, [facility] [address] [address] Jan, [facility] [id number] [address]- 2282 Jan, [facility] [id number] [place] [address] 21563- 2011 Dec, [facility] [id number] [place] [address] 449424- 0122 Dec, Attention deficit disorder F90.0 [facility] [id number] [place] [address] 426201- 3051 Dec, Attention deficit disorder F90.0 [facility] [id number] [place] [address] 65194- 2140 Nov, [facility] [id number] [place] [address] 65362- 3433 Nov, Attention deficit disorder F90.0 and Low back pain, unspecified back pain laterality, with sciatica presence unspecified M54.5 [facility] [id number] [place] [address] 20635- 0015 Sep, [facility] [id number] [place] [address] 16279- 5919 Sep, Irritable bowel syndrome with constipation 564.1 and Back pain 724.5 [facility] [id number] [place] [address] 42253- 5015 Aug, [facility] [address] [place] [address] 17327- 2469 Aug, [facility] [id number] [place] [address] 83738- 1672 Jul, [facility] [id number] [place] [address] 303747- 2004 Jul, [facility] [id number] [place] [address] 229431- 0634 June, [facility] [address] [address] [address] June, [facility] [address] [place] [address]- 5704 14 May, 2014 [facility] [address] [id number] [place] [address]- 3757 13 May, 2014 [facility] [place] [facility] [address] [id number] [place] [address]- 2976 26 Apr, 2014 [facility] [address] [id number] [place] [address]- 9757 26 Apr, 2014 [facility] [place] [facility] [address] [id number] [place] [address]- 0600 19 Apr, 2014 [facility] [place] [facility] [address] [id number] [place] [address]- 3194 19 Apr, 2014 [facility] [place] [facility] [address] [id number] [place] [address]- 5880 17 Apr, 2014 [facility] [place] [facility] [address] [id number] [place] [address]- 6071 17 Apr, 2014 [facility] [address] [id number] [place] [address]- 9623 17 Apr, 2014 [facility] [place] [facility] [address] [id number] [place] [address]- 0983 17 Apr, 2014 [facility] [address] [id number] [place] [address]- 1486 16 Apr, 2014 [facility] [place] [facility] [address] [id number] [place] [address]- 5489 16 Apr, 2014 [facility] [place] [facility] [address] [id number] [place] [address]- 3525 14 Apr, 2014 [facility] [place] [facility] [address] [id number] [place] [address]- 4687 14 Apr, 2014 [facility] [place] [facility] [address] [id number] [place] [address]- 2546 09 Apr, 2014 [facility] [place] [facility] [address] [id number] [place] [address] Apr, 2014 [facility] [place] [facility] [address] [id number] [place] [address]- 9263 Apr, [facility] [place] [facility] [address] [id number] [place] [address]- 0623 Apr, 2014 [facility] [place] [facility] [address] [id number] [place] [address]- 7593 Apr, [facility] [place] [facility] [address] [id number] [place] [address]- 1333 Apr, 2014 [facility] [place] [facility] [address] [id number] [place] [address]- 9354 Mar, 2014 [facility] [place] [facility] [address] [id number] [place] [address]- 2246 Mar, 2014 [facility] [place] [facility] [address] [facility] [id number] [place] [address]- 9852 24 Mar, 2014 [facility] [place] [facility] [address] [facility] [id number] [place] [address]- 4798 24 Mar, 2014 [facility] [place] [facility] [address] [facility] [id number] [place] [address]- 2881 Mar, 2014 [facility] [place] [facility] [address] [facility] [id number] [place] [address]- 9087 23 Mar, 2014 [facility] [place] [facility] [address] [facility] [id number] [place] [address]- 7294 18 Mar, 2014 [facility] [place] [facility] [address] [facility] [id number] [place] [address]- 9160 18 Mar, 2014 [facility] [place] [facility] [address] [facility] [id number] [place] [address]- 8882 17 Mar, 2014 [facility] [place] [facility] [address] [facility] [id number] [place] [address]- 0082 14 Mar, 2014 [facility] [place] [facility] [address] [facility] [id number] [place] [address]- 3651 14 Mar, 2014 [facility] [place] [facility] [address] [id number] [place] [address]- 1208 Mar, [facility] [place] [facility] [address] [id number] [place] [address] Mar, [facility] [place] [facility] [address] [id number] [place] [address]- 1607 Feb, [facility] [place] [facility] [address] [id number] [place] [address]- 8635 Feb, [facility] [place] [facility] [address] [id number] [place] [address]- 7937 Feb, [facility] [place] [facility] [address] [id number] [place] [address]- 4625 Feb, [facility] [place] [facility] [address] [facility] [id number] [place] [address] Jan, [facility] [place] [facility] [address] [id number] [place] [address]- 3129 Jan, [facility] [place] [facility] [address] [id number] [place] [address]- 7773 Jan, [facility] [place] [facility] [address] [id number] [place] [address]- 3409 Jan, [facility] [place] [facility] [address] [facility] [id number] [place] [address]- 9440 Dec, [facility] [place] [facility] [address] [id number] [place] [address]- 9256 Dec, [facility] [place] [facility] [address] [id number] [place] [address]- 2296 Nov, [facility] [place] [facility] [address] [id number] [place] [address]- 9535 Nov, [facility] [place] [facility] [address] [id number] [place] [address]- 8275 Oct, [facility] [place] [facility] [address] [id number] [place] [address]- 1096 Oct, [facility] [place] [facility] [address] [id number] [place] [address]- 3027 Oct, [facility] [place] [facility] [address] [id number] [place] [address]- 9270 Oct, [facility] [place] [facility] [address] [facility] [id number] [place] 9685 Sep, [facility] [place] [facility] [address] [id number] [place] [address]- 8842 Sep, [facility] [place] [facility] [address] [id number] [place] [address]- 1936 June, [facility] [place] [facility] [address] [facility] [id number] [place] [address]- 3386 June, [facility] [place] [facility] [address] [facility] [id number] [place] [address]- 1696 Apr, [facility] [place] [facility] [address] [id number] [place] [address]- 6449 Apr, [facility] [place] [facility] [address] [facility] [id number] [place] [address]- 5705 Mar, [facility] [place] [facility] [address] [facility] [id number] [place] [address]- 6042 Mar, [facility] [place] [facility] [address] [facility] [id number] [place] [address]- 1639 Mar, [facility] [place] [facility] [address] [id number] [address]- 9223 Mar, [facility] [place] [facility] [address] [id number] [place] [address]- 0620 Mar, [facility] [place] [facility] [address] [id number] [place] [address]- 8165 Mar, [facility] [place] [facility] [address] [facility] [id number] [place] [address]- 4448 Mar, [facility] [place] [facility] [address] [address]- 8436 14 Mar, 2013 [facility] [address] [address]- 0600 14 Mar, 2013 [facility] [address] [address]- 6137 Mar, [facility] [address] [address]- 3376 Mar, [facility] [address] [address]- 9561 Jan, [facility] [address] [address]- 3812 Jan, [facility] [address] [address]- 9248 Jan, [facility] [address] [address]- 3007 Jan, [facility] [address] [address]- 9771 Jan, [facility] [address] [address]- 4484 Jan, IMMUNIZATIONS No Known Immunizations SOCIAL HISTORY Never Assessed REASON FOR VISIT adderall 12/28/2016 PLAN OF CARE VITAL SIGNS MEDICATIONS Medication Instructions Dosage Frequency Start Date End Date Duration Status Adderall 20 mg Orally 2 times a day 1 tablet in the morning 12h 08 Dec, 2016 28 days Active RESULTS No Results PROCEDURES [...]
--- NOTE | 2017-11-30 13:50 | Diagnostic Imaging Report ---
INDICATION: Headache and neck pain and tingling in arms. TECHNIQUE: Noncontrast brain CT is performed. FINDINGS: There are no extra-axial fluid collections. No intracranial hemorrhage. No intracranial mass or mass effect. No midline shift. The ventricles are normal in size and position. There are no focal parenchymal abnormalities in the brain. Calvarial windows are unremarkable. IMPRESSION: Negative noncontrast brain CT. Dictated by: Dictated on workstation # [id number]
[2017-11-30 14:10] VITALS: BP 135/90
== END 2017-11-30 14:10 | disposition home or self-care (01) ==
LOC: EDUNIT# 12:53 → ER 12:54
DX: R51 Headache (principal); M54.12 Radiculopathy, cervical region; J45.909 Unspecified asthma, uncomplicated; F41.9 Anxiety disorder, unspecified; F32.9 Major depressive disorder, single episode, unspecified; Z79.52 Long term (current) use of systemic steroids; Z90.89 Acquired absence of other organs
CPT/HCPCS: 70450

== ENCOUNTER 2018-05-16 10:42 | Emergency (ER) | payer SELFPAY ==
[~2018-05-16] VITALS: Ht 172.7 cm; Wt 90.7 kg
[~2018-05-16 10:42] MED LIST changes: +HYDR-4226 PO
--- OUTSIDE RECORDS SUMMARY | 2018-05-16 10:47 | XMS REPORT ---
Author Author JOCELYN LYNNE Organization [facility] Address [address] [place] [address] Care Team Providers [facility] Security Director Name Role Phone MAGED JOCELYN Unavailable PROBLEMS Type Condition ICD9-CM Code DLS21-GG Code Onset Dates Condition Status SNOMED Code Problem Other chronic pain G89.29 Active 89040693 Problem Lumbago with sciatica, right side M54.41 Active 308234201 Problem Lumbago with sciatica, left side M54.42 Active 486529360 Problem Unspecified backache 724.5 Active 405042801 Problem Dysthymia F34.1 Active 11532253 Problem Attention deficit hyperactivity disorder (ADHD), unspecified ADHD type F90.9 Active 413915698 Problem MDD (major depressive disorder), recurrent episode, mild F33.0 Active 78011995 Problem Degenerative disc disease, lumbar M51.36 Active 47626001 Problem Degenerative disc disease, cervical M50.30 Active 51656542 Problem Other chronic pain G89.29 Active 66533294 Problem Moderate episode of recurrent major depressive disorder F33.1 Active 519581323 Problem Recurrent major depressive disorder, in partial remission F33.41 Active 61529356 Problem Attention deficit hyperactivity disorder (ADHD), predominantly inattentive type F90.0 Active 98088119 ALLERGIES No Information ENCOUNTERS Encounter Location Date Diagnosis [facility] [address], [place] [address] Jan, [facility] [id number] [place] [address] 9[address]34- [address]266 Dec, Recurrent major depressive disorder, in partial remission F33.41 [facility] [address], [place] [address] Dec, Recurrent major depressive disorder, in partial remission F33.41 [facility] [id number] [place] [address] 70233- 3302 Nov, Radiculopathy of cervical region M54.12 [facility] [id number] [place] [address] 78410- 3594 Nov, Degenerative disc disease, cervical M50.30 ; Degenerative disc disease, lumbar M51.36 and Radiculopathy affecting upper extremity M54.10 [facility] [id number] [place] [address] 90585- 4439 Nov, Recurrent major depressive disorder, in partial remission F33.41 and Attention deficit hyperactivity disorder (ADHD), predominantly inattentive type F90.0 [facility] [id number] [place] [address] 72811- 8648 Oct, Recurrent major depressive disorder, in partial remission F33.41 [facility] [id number] [place] [address] 61620- 6599 Sep, [facility] [id number] [place] [address] 49620- 0460 Sep, Recurrent major depressive disorder, in partial remission F33.41 [facility] [id number] [place] [address] 25645- 0275 Sep, [facility] [id number] [place] [address] 63392- 5645 Sep, Moderate episode of recurrent major depressive disorder F33.1 [facility] [id number] [place] [address] 75127- 0900 Aug, [facility] [id number] [place] [address] 91467- 5433 Aug, Recurrent major depressive disorder, in partial remission F33.41 and Attention deficit hyperactivity disorder (ADHD), unspecified ADHD type F90.9 [facility] [address], [place] [address] June, Lumbago with sciatica, right side M54.41 ; Other chronic pain G89.29 ; Attention deficit hyperactivity disorder (ADHD), predominantly inattentive type F90.0 and Cervical neuritis M54.12 [facility] [id number] [place] [address] 96685- 1351 June, Moderate episode of recurrent major depressive disorder F33.1 ; Attention deficit hyperactivity disorder (ADHD), unspecified ADHD type F90.9 and MDD (major depressive disorder), recurrent episode, mild F33.0 [facility] [id number] [place] [address] 27403- 2154 June, [facility] [id number] [address] May, [facility] [id number] [place] [address] 76829- 2105 Apr, [facility] [id number], [place] [address] 0101 Mar, [facility] [id number] [place] [address] 41039- 3774 Feb, [facility] [id number], [place] [address] 69[address] Feb, Moderate episode of recurrent major depressive disorder F33.1 and Attention deficit hyperactivity disorder (ADHD), unspecified ADHD type F90.9 [facility] [address], [place] [address] 2606 Jan, [facility] [id number] [address] Dec, MDD (major depressive disorder), recurrent episode, mild F33.0 [facility] [address], [place] [address] 0926 Dec, [facility] [address], [place] [address]- 6460 Dec, [facility] [address], [place] [address]- 4416 Dec, MDD (major depressive disorder), recurrent episode, mild F33.0 and Attention deficit hyperactivity disorder (ADHD), unspecified ADHD type F90.9 [facility] [address], [place] [address]- 4170 Oct, MDD (major depressive disorder), recurrent episode, mild F33.0 and Attention deficit hyperactivity disorder (ADHD), unspecified ADHD type F90.9 [facility] [address], [place] [address] 2296 Aug, Lumbago with sciatica, left side M54.42 ; Lumbago with sciatica, right side M54.41 and Other chronic pain G89.29 [facility] [id number] [place] [address] 70933- 7163 June, Attention deficit hyperactivity disorder (ADHD), unspecified ADHD type F90.9 and MDD (major depressive disorder), recurrent episode, mild F33.0 [facility] [address], [place] [address]- 3732 June, Attention deficit hyperactivity disorder (ADHD), unspecified ADHD type F90.9 [facility] [address], [place] [address]- 7424 May, Attention deficit hyperactivity disorder (ADHD), unspecified ADHD type F90.9 [facility] [address], [place] [address]- 8943 May, Attention deficit hyperactivity disorder (ADHD), unspecified ADHD type F90.9 and MDD (major depressive disorder), recurrent episode, mild F33.0 [facility] [address], [place] [address]- 3971 Apr, MDD (major depressive disorder), recurrent episode, mild F33.0 [facility] [id number], [place] [address]- 1216 Apr, MDD (major depressive disorder), recurrent episode, mild F33.0 [facility] [id number] [place] [address] 56374- 5735 Mar, MDD (major depressive disorder), recurrent episode, mild F33.0 [facility] [id number] [place] [address] 64233- 8658 13 Mar, 2016 Cervicalgia M54.2 ; Radiculopathy of cervical region M54.12 ; Lumbago with sciatica, left side M54.42 ; Lumbago with sciatica, right side M54.41 and Other chronic pain G89.29 [facility] [id number] [place] [address] 38194- 9932 07 Mar, 2016 MDD (major depressive disorder), recurrent episode, mild F33.0 and Attention deficit disorder F90.0 [facility] [id number] [place] [address] 07567- 4752 Mar, [facility] [id number] [place] [address] 26423- 9978 Feb, [facility] [id number] [place] [address] 69594- 8299 Jan, [facility] [id number] [place] [address] 52629- 3675 Dec, [facility] [id number] [place] [address] 58148- 2139 Dec, [facility] [id number] [place] [address] 78251- 4900 Nov, MDD (major depressive disorder), recurrent episode, mild F33.0 ; Attention deficit disorder F90.0 and Other usp (current) drug therapy Z79.899 [facility] [id number] [place] [address] 91370- 3450 Oct, [facility] [id number] [place] [address] 61815- 2684 Oct, [facility] [id number] [place] [address] 46547- 1169 Sep, Attention deficit hyperactivity disorder (ADHD), unspecified ADHD type F90.9 [facility] [address], [place] [address]- 1648 Jul, Attention deficit hyperactivity disorder (ADHD), unspecified ADHD type F90.9 [facility] [id number] [address] Jul, Attention deficit hyperactivity disorder (ADHD), unspecified ADHD type F90.9 ; Dysthymia F34.1 ; Abnormal weight gain R63.5 and Family history of heart disease Z82.49 [facility] [address], [place] [address]- 9620 May, [facility] [id number] [place] [address] 29432- 5945 Apr, [facility] [id number] [place] [address]- 2079 Mar, [facility] [id number] [place] [address] 63834- 3564 Feb, [facility] [id number] [place] [address]- 7251 Jan, [facility] [id number] [place] [address]- 0186 Jan, [facility] [address], [place] [address]- 6341 Dec, [facility] [id number] [place] [address]- 9806 Dec, Attention deficit disorder F90.0 [facility] [id number] 7096 Dec, Attention deficit disorder F90.0 [facility] [address] [address] 6349 Nov, [facility] [id number] [place] [address]- 1328 Nov, Attention deficit disorder F90.0 and Low back pain, unspecified back pain laterality, with sciatica presence unspecified M54.5 [facility] [id number] [place] [address] 49937- 3022 Sep, [facility] [id number] [place] [address] 39627- 1515 Sep, Irritable bowel syndrome with constipation 564.1 and Back pain 724.5 [facility] [id number] [place] [address] 49823- 6532 Aug, [facility] [id number] [place] [address] 51676- 9393 Aug, [facility] [id number] [place] [address] 62434- 1022 Jul, [facility] [id number] [place] [address] 80847- 9178 Jul, [facility] [id number] [place] [address] 61640- 4466 June, [facility] [id number] [place] [address] 96347- 9767 June, [facility] [id number] [place] [address] 12871- 7478 May, [facility] [id number] [place] [address] 07274- 6473 May, [facility] [id number] [place] [address]- 7654 Apr, [facility] [id number] [place] [address] 506919- 1475 Apr, [facility] [id number] [place] [address] 699819- 6806 Apr, [facility] [address] [address] Apr, [facility] [place] [facility] [address] [id number] [place] [address]- 6266 17 Apr, 2014 [facility] [place] [facility] [address] [id number] [place] [address]- 3966 17 Apr, 2014 [facility] [place] [facility] [address] [id number] [place] [address]- 2546 17 Apr, 2014 [facility] [place] [facility] [address] [id number] [place] [address]- 4598 17 Apr, 2014 [facility] [place] [facility] [address] [id number] [place] [address]- 7763 16 Apr, 2014 [facility] [place] [facility] [address] [id number] [place] [address]- 6666 16 Apr, 2014 [facility] [place] [facility] [address] [id number] [place] [address]- 5463 14 Apr, 2014 [facility] [place] [facility] [address] [id number] [place] [address]- 7607 14 Apr, 2014 [facility] [place] [facility] [address] [id number] [place] [address]- 8725 Apr, [facility] [place] [facility] [address] [id number] [place] [address]- 3612 Apr, 2014 [facility] [place] [facility] [address] [id number] [place] [address]- 6821 Apr, [facility] [place] [facility] [address] [id number] [place] [address]- 5523 Apr, 2014 [facility] [place] [facility] [address] [id number] [place] [address]- 0445 Apr, [facility] [place] [facility] [address] [id number] [place] [address]- 1936 Apr, [facility] [place] [facility] [address] [id number] [place] [address]- 6966 Mar, [facility] [place] [facility] [address] [id number] [place] [address]- 0649 Mar, 2014 [facility] [place] [facility] [address] [id number] [place] [address]- 0651 Mar, 2014 [facility] [place] [facility] [address] [id number] [place] [address]- 8396 Mar, 2014 [facility] [place] [facility] [address] [facility]NOTE [facility]] [id number] [place] [address]- 1606 Mar, 2014 [facility] [place] [facility] [address] [id number] [place] [address]- 3173 Mar, 2014 [facility] [place] [facility] [address] [id number] [place] [address]- 9200 Mar, 2014 [facility] [place] [facility] [address] [facility] 3] [id number] [place] [address]- 5529 Mar, 2014 [facility] [place] [facility] [address] [facility] 3] [id number] [place] [address]- 8039 17 Mar, 2014 [facility] [place] [facility] [address] [facility] 3] [id number] [place] [address]- 2660 14 Mar, 2014 [facility] [place] [facility] [address] [facility]NOTE 3] [id number] [place] [address]- 4194 Mar, [facility] [place] [facility] [address] [facility]NOTE 3] [id number] [place] [address]- 4604 Mar, [facility] [place] [facility] [address] [facility]NOTE 3] [id number] [place] [address]- 7125 Mar, [facility] [place] [facility] [address] [facility]NOTE 3] [id number], [place] [address]- 0034 Feb, [facility] [place] [facility] [address] [id number] [place] [address]- 2307 Feb, [facility] [place] [facility] [address] [facility] 3] [id number], [place] [address]- 9036 Feb, [facility] [place] [facility] [address] [facility]] [id number], [place] [address]- 8055 Feb, [facility] [place] [facility] [address] [id number] [place] [address]- 8410 Jan, [facility] [place] [facility] [address] [id number] [place] [address]- 2503 Jan, [facility] [place] [facility] [address] [id number] [place] [address]- 5309 Jan, [facility] [place] [facility] [address] [id number] [place] [address]- 2990 Jan, [facility] [place] [facility] [address] [id number] [place] [address]- 3326 Dec, [facility] [place] [facility] [address] [id number] [place] [address]- 6502 Dec, [facility] [place] [facility] [address] [id number] [place] [address]- 6197 Nov, [facility] [place] [facility] [address] [id number] [place] [address]- 9754 Nov, [facility] [place] [facility] [address] [id number] [place] [address]- 0587 Oct, [facility] [place] [facility] [address] [id number] [place] [address]- 6962 Oct, [facility] [place] [facility] [address] [id number] [place] [address]- 1980 Oct, [facility] [place] [facility] [address] [id number] [place] [address]- 2528 Oct, [facility] [place] [facility] [address] [id number] [place] [address]- 5879 Sep, [facility] [place] [facility] [address] [id number] [place] [address]- 6189 Sep, [facility] [place] [facility] [address] [id number] [place] [address]- 6881 June, [facility] [place] [facility] [address] [id number] [place] [address]- 3240 June, [facility] [place] [facility] [address] [id number] [place] [address]- 4364 Apr, [facility] [place] [facility] [address] [id number] [place] [address]- 9606 Apr, [facility] [place] [facility] [address] [id number] [place] [address]- 6092 Mar, [facility] [place] [facility] [address] [id number] [place] [address]- 0420 Mar, [facility] [place] [facility] [address] [id number] [place] [address]- 6827 Mar, [facility] [place] [facility] [address] [id number] [place] [address]- 9283 Mar, [facility] [place] [facility] [address] [facility]] [id number] [place] [address]- 1022 Mar, [facility] [place] [facility] [address] [id number] [place] [address]- 7318 Mar, [facility] [place] [facility] [address] [id number] [place] [address]- 4845 Mar, [facility] [place] [facility] [address] [facility] 3] [id number] [place] [address]- 9450 Mar, [facility] [place] [facility] [address] [facility]NOTE 3] [id number] [place] [address]- 1511 Mar, [facility] [place] [facility] [address] [facility]NOTE [facility]] [id number] [place] [address]- 8956 Mar, [facility] [place] [facility] [address] [id number] [place] [address]- 1870 Mar, [facility] [place] [facility] [address] [facility] 3] [id number] [place] [address]- 6078 Jan, [facility] [place] [facility] [address] [facility]NOTE 3] [id number] [place] [address]- 7940 Jan, [facility] [address] [facility]NOTE 3] [id number], [place] [address]- 6596 Jan, [facility] [address] [facility]NOTE 3] [id number], [place] [address]- 9276 Jan, [facility] [address] [facility]NOTE 3] [id number], [place] [address]- 1426 Jan, [facility] [address] [facility]NOTE 3] [id number], [place] [address]- 2506 Jan, IMMUNIZATIONS No Known Immunizations SOCIAL HISTORY Never Assessed REASON FOR VISIT adderall 01/24/2018 PLAN OF CARE VITAL SIGNS MEDICATIONS Medication Instructions Dosage Frequency Start Date End Date Duration Status Adderall XR 20 MG Orally Once a day 1 capsule in the morning 24h Jan, 28 days Active RESULTS No Results [...]
--- OUTSIDE RECORDS SUMMARY | 2018-05-16 10:48 | XMS REPORT ---
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 Name Role Phone MACHO RANDOLPH Unavailable PROBLEMS Type Condition ICD9-CM Code [id number] Code Onset Dates Condition Status SNOMED Code Problem Other chronic pain G89.29 Active 18301901 Problem Lumbago with sciatica, right side M54.41 Active 975924329 Problem Lumbago with sciatica, left side M54.42 Active 724808792 Problem Unspecified backache 724.5 Active 231456056 Problem Dysthymia F34.1 Active 09337440 Problem Attention deficit hyperactivity disorder (ADHD), unspecified ADHD type F90.9 Active 274992335 Problem MDD (major depressive disorder), recurrent episode, mild F33.0 Active 03663313 Problem Degenerative disc disease, lumbar M51.36 Active 36594521 Problem Degenerative disc disease, cervical M50.30 Active 37393983 Problem Other chronic pain G89.29 Active 79910279 Problem Moderate episode of recurrent major depressive disorder F33.1 Active 506486868 Problem Recurrent major depressive disorder, in partial remission F33.41 Active 31661457 Problem Attention deficit hyperactivity disorder (ADHD), predominantly inattentive type F90.0 Active 18935901 ALLERGIES No Known Allergies ENCOUNTERS Encounter Location Date Diagnosis [facility] [address] [facility] [id number] [address] Nov, [facility] [id number] [place] [address] Nov, Degenerative disc disease, cervical M50.30 ; Degenerative disc disease, lumbar M51.36 and Radiculopathy affecting upper extremity M54.10 [facility] [id number] [address] Nov, Recurrent major depressive disorder, in partial remission F33.41 and Attention deficit hyperactivity disorder (ADHD), predominantly inattentive type F90.0 [facility] [id number] [place] [address] Oct, Recurrent major depressive disorder, in partial remission F33.41 [facility] [address] [address] Sep, [facility] [id number] [place] [address]- [address] Sep, Recurrent major depressive disorder, in partial remission F33.41 [facility] [id number] [place] [address], [place] [address] Sep, [facility] [address] [address] Sep, Moderate episode of recurrent major depressive disorder F33.1 [facility] [id number] [place] [address]- [address] Aug, [facility] [address] [address] Aug, Recurrent major depressive disorder, in partial remission F33.41 and Attention deficit hyperactivity disorder (ADHD), unspecified ADHD type F90.9 [facility] [address] [address] June, Lumbago with sciatica, right side M54.41 ; Other chronic pain G89.29 ; Attention deficit hyperactivity disorder (ADHD), predominantly inattentive type F90.0 and Cervical neuritis M54.12 [facility] [address] [address] June, Moderate episode of recurrent major depressive disorder F33.1 ; Attention deficit hyperactivity disorder (ADHD), unspecified ADHD type F90.9 and MDD (major depressive disorder), recurrent episode, mild F33.0 [facility] [address] [id number] [address] June, [facility] [address] [address] May, [facility] [address] [address] Apr, [facility] [address] [address] Mar, [facility] [id number] [address] Feb, [facility] [address] [address] Feb, Moderate episode of recurrent major depressive disorder F33.1 and Attention deficit hyperactivity disorder (ADHD), unspecified ADHD type F90.9 [facility] [address] [address] Jan, [facility] [address] [address] Dec, MDD (major depressive disorder), recurrent episode, mild F33.0 [facility] [address] [address] Dec, [facility] [address] [address]- 9686 Dec, [facility] [address] [address] Dec, MDD (major depressive disorder), recurrent episode, mild F33.0 and Attention deficit hyperactivity disorder (ADHD), unspecified ADHD type F90.9 [facility] [address] [address] Oct, MDD (major depressive disorder), recurrent episode, mild F33.0 and Attention deficit hyperactivity disorder (ADHD), unspecified ADHD type F90.9 [facility] [id number] [address] Aug, Lumbago with sciatica, left side M54.42 ; Lumbago with sciatica, right side M54.41 and Other chronic pain G89.29 [facility] [address] [address] June, Attention deficit hyperactivity disorder (ADHD), unspecified ADHD type F90.9 and MDD (major depressive disorder), recurrent episode, mild F33.0 [facility] [address] [address] June, Attention deficit hyperactivity disorder (ADHD), unspecified ADHD type F90.9 [facility] [address] [address] May, Attention deficit hyperactivity disorder (ADHD), unspecified ADHD type F90.9 [facility] [address] [address] May, Attention deficit hyperactivity disorder (ADHD), unspecified ADHD type F90.9 and MDD (major depressive disorder), recurrent episode, mild F33.0 [facility] [address] [address]- [address] Apr, MDD (major depressive disorder), recurrent episode, mild F33.0 [facility] [address] [address]- [address] Apr, MDD (major depressive disorder), recurrent episode, mild F33.0 [facility] [address] [address]- [address] Mar, MDD (major depressive disorder), recurrent episode, mild F33.0 [facility] [address] [address]- [address] 13 Mar, 2016 Cervicalgia M54.2 ; Radiculopathy of cervical region M54.12 ; Lumbago with sciatica, left side M54.42 ; Lumbago with sciatica, right side M54.41 and Other chronic pain G89.29 [facility] [address] [id number] [address]- [address] 07 Mar, 2016 MDD (major depressive disorder), recurrent episode, mild F33.0 and Attention deficit disorder F90.0 [facility] [address] [address]- [address] Mar, [facility] [address] [address]- 35[address] Feb, [facility] [address] [address]- [address] Jan, [facility] [address] [address]- 9[address] Dec, [facility] [address] [address]- [address] Dec, [facility] [address] [address]- [address] Nov, MDD (major depressive disorder), recurrent episode, mild F33.0 ; Attention deficit disorder F90.0 and 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 [facility] [address] [address]- [address] Oct, [facility] [address] [address]- 365[address] Oct, [facility] [address] [address]- 26[address] Sep, Attention deficit hyperactivity disorder (ADHD), unspecified ADHD type F90.9 [facility] [id number] [address]- [address] Jul, Attention deficit hyperactivity disorder (ADHD), unspecified ADHD type F90.9 [facility] [id number] [address]- 4[address] Jul, Attention deficit hyperactivity disorder (ADHD), unspecified ADHD type F90.9 ; Dysthymia F34.1 ; Abnormal weight gain R63.5 and Family history of heart disease Z82.49 [facility] [address] [address]- 4[address] May, [facility] [id number] [place] [address]- 478[address] Apr, [facility] [id number] [place] [address]- 8709 Mar, [facility] [id number] [place] [address]- 8743 Feb, [facility] [id number] [place] [address]- 2746 Jan, [facility] [id number] [place] [address] 398[address]- 7234 Jan, [facility] [id number] [place] [address] 0[address]- 6269 Dec, [facility] [id number] [place] [address]- 5260 Dec, Attention deficit disorder F90.0 [facility] [id number] [place] [address] 82006- 4239 Dec, Attention deficit disorder F90.0 [facility] [id number] [place] [address] 80436- 5272 Nov, [facility] [id number] [place] [address] 19868- 0476 Nov, Attention deficit disorder F90.0 and Low back pain, unspecified back pain laterality, with sciatica presence unspecified M54.5 [facility] [id number] [place] [address] 90097- 5622 Sep, [facility] [id number] [place] [address]18- 9135 Sep, Irritable bowel syndrome with constipation 564.1 and Back pain 724.5 [facility] [id number] [place] [address]- 7906 Aug, [facility] [place] [facility] [address] [id number] [place] [address]- 2835 Aug, [facility] [place] [facility] [address] [id number] [place] [address]- 6190 Jul, [facility] [place] [facility] [address] [id number] [place] [address]- 8133 Jul, [facility] [place] [facility] [address] [id number] [place] [address]- 2157 June, [facility] [place] [facility] [address] [id number] [place] [address]- 5499 June, [facility] [place] [facility] [address] [id number] [place] [address]- 7865 May, [facility] [place] [facility] [address] [id number] [place] [address]- 5214 May, [facility] [place] [facility] [address] [id number] [place] [address]- 5826 Apr, [facility] [place] [facility] [address] [id number] [place] [address]- 2604 Apr, [facility] [place] [facility] [address] [facility] [id number] [place] [address]- 0032 Apr, [facility] [place] [facility] [address] [id number] [place] [address]- 1493 Apr, [facility] [place] [facility] [address] [id number] [place] [address]- 2933 Apr, [facility] [place] [facility] [address] [id number] [place] [address]- 1935 Apr, [facility] [place] [facility] [address] [id number] [place] [address]- 6033 Apr, [facility] [place] [facility] [address] [facility] [id number] [place] [address]- 2417 Apr, [facility] [place] [facility] [address] [id number] [place] [address]- 3700 16 Apr, 2014 [facility] [place] [facility] [address] [id number] [place] [address]- 1033 16 Apr, 2014 [facility] [place] [facility] [address] [id number] [place] [address]- 4867 14 Apr, 2014 [facility] [place] [facility] [address] [id number] [place] [address]- 6079 14 Apr, 2014 [facility] [place] [facility] [address] [id number] [place] [address]- 0722 Apr, [facility] [place] [facility] [address] [id number] [place] [address]- 2771 Apr, 2014 [facility] [place] [facility] [address] [facility] [id number] [place] [address]- 8821 Apr, [facility] [place] [facility] [address] [id number] [place] [address]- 7549 Apr, 2014 [facility] [place] [facility] [address] [id number] [place] [address]- 9838 Apr, [facility] [place] [facility] [address] [id number] [place] [address]- 4648 05 Apr, 2014 [facility] [place] [facility] [address] [facility] [id number] [place] [address]- 6083 Mar, [facility] [place] [facility] [address] [id number] [place] [address]- 2206 Mar, 2014 [facility] [place] [facility] [address] [id number] [place] [address]- 5549 Mar, [facility] [place] [facility] [address] [id number] [place] [address]- 6061 Mar, [facility] [place] [facility] [address] [id number] [place] [address]- 3825 Mar, 2014 [facility] [place] [facility] [address] [id number] [place] [address]- 2546 Mar, 2014 [facility] [place] [facility] [address] [id number] [place] [address]- 3877 Mar, 2014 [facility] [place] [facility] [address] [id number] [place] [address]- 6454 Mar, 2014 [facility] [place] [facility] [address] [id number] [place] [address]- 6856 17 Mar, 2014 [facility] [place] [facility] [address] [id number] [place] [address]- 1463 Mar, 2014 [facility] [place] [facility] [address] [id number] [place] [address]- 6968 Mar, 2014 [facility] [place] [facility] [address] [facility] [id number] [place] [address]- 1312 Mar, 2014 [facility] [place] [facility] [address] [facility] [id number] [place] [address]- 5886 Mar, [facility] [place] [facility] [address] [facility] [id number] [place] [address]- 4941 Feb, [facility] [place] [facility] [address] [facility] [id number] [place] [address]- 1684 Feb, [facility] [place] [facility] [address] [facility] [id number] [place] [address]- 2773 Feb, [facility] [place] [facility] [address] [facility] [id number] [place] [address]- 1426 Feb, [facility] [place] [facility] [address] [id number] [address]- 9837 Jan, [facility] [place] [facility] [address] [id number] [place] [address]- 8871 Jan, [facility] [place] [facility] [address] [facility] [id number] [place] 4077 Jan, [facility] [place] [facility] [address] [facility] [id number] [address]- 0457 Jan, [facility] [place] [facility] [address] [id number] [place] [address]- 7732 Dec, [facility] [place] [facility] [address] [id number] [place] [address]- 6958 Dec, [facility] [place] [facility] [address] [id number] [place] [address]- 4735 Nov, [facility] [place] [facility] [address] [id number] [place] [address]- 4348 Nov, [facility] [place] [facility] [address] [id number] [place] 1667 Oct, [facility] [place] [facility] [address] [id number] [place] [address]- 0910 Oct, [facility] [place] [facility] [address] [id number] [place] [address]- 3888 Oct, [facility] [place] [facility] [address] [id number] [place] [address]- 3289 Oct, [facility] [place] [facility] [address] [id number] [place] [address]- 4605 Sep, [facility] [place] [facility] [address] [id number] [place] [address]- 3322 Sep, [facility] [place] [facility] [address] [id number] [place] [address]- 3462 June, [facility] [place] [facility] [address] [id number] [place] [address]- 8773 June, [facility] [place] [facility] [address] [id number] [place] [address]- 1029 Apr, [facility] [place] [facility] [address] [id number] [place] [address]- 8661 Apr, [facility] [place] [facility] [address] [id number] [place] [address]- 3431 Mar, [facility] [place] [facility] [address] [id number] [place] [address]- 8319 Mar, [facility] [address] [facility] [id number] [place] [address]- 5706 Mar, [facility] [address] [facility] [id number] [place] [address]- 9186 Mar, [facility] [address] [facility] [id number] [place] [address]- 7546 Mar, [facility] [address] [facility] [id number] [place] [address]- 7997 Mar, [facility] [address] [facility] [id number] [place] [address]- 8898 Mar, [facility] [address] [facility] [id number] [place] [address]- 7536 Mar, [facility] [id number] [place] [address]- 2167 Mar, [facility] [address] [facility] [id number] [place] [address]- 9840 Mar, [facility] [address] [facility] [id number] [place] [address]- 0827 04 Mar, 2013 [facility] [address] [facility] [id number] [place] [address]- 0365 Jan, [facility] [address] [facility] [id number] [place] [address] 2546 Jan, [facility] [address] [facility] [id number] [address]- 2546 Jan, [facility] [address] [facility] [id number] [place] [address]- 5266 Jan, [facility] [address] [facility] [id number] [place] [address] Jan, [facility] [address] 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 ATILIO Fuentes PLAN OF CARE Activity Details Follow Up 2 Weeks Reason:pain mgmt VITAL SIGNS Height 67 in 2017-12-06 Weight 207.8 lbs 2017-12-06 Temperature 98.2 degrees Fahrenheit 2017-12-06 Heart Rate 92 bpm 2017-12-06 Respiratory Rate 18 2017-12-06 BMI 32.54 kg/m2 2017-12-06 Blood pressure systolic 154 mmHg 2017-12-06 Blood pressure diastolic 104 mmHg 2017-12-06 MEDICATIONS Medication Instructions Dosage Frequency Start Date End Date Duration Status Cymbalta 60 mg Orally Once a day in the morning 2 capsule Active Lyrica 75 MG Orally twice a day 1 capsule 12h Nov, Active Adderall XR 20 MG Orally Once a day 1 capsule in the morning 24h 09 Nov, 2017 28 days Active RESULTS No Results PROCEDURES [...]
--- OUTSIDE RECORDS SUMMARY | 2018-05-16 10:48 | XMS REPORT ---
Author Author MACHO RANDOLPH Organization [facility] Address [address] [place] [address] Care Team Providers Care Transaction Manager Name Role Phone MACHO RANDOLPH Unavailable PROBLEMS Type Condition ICD9-CM Code SAG40-SD Code Onset Dates Condition Status SNOMED Code Problem Other chronic pain G89.29 Active 00938666 Problem Lumbago with sciatica, right side M54.41 Active 675669704 Problem Lumbago with sciatica, left side M54.42 Active 501854879 Problem Unspecified backache 724.5 Active 708416989 Problem Dysthymia F34.1 Active 14610940 Problem Attention deficit hyperactivity disorder (ADHD), unspecified ADHD type F90.9 Active 466850748 Problem MDD (major depressive disorder), recurrent episode, mild F33.0 Active 05950486 Problem Degenerative disc disease, lumbar M51.36 Active 85190512 Problem Degenerative disc disease, cervical M50.30 Active 14945752 Problem Other chronic pain G89.29 Active 85199708 Problem Moderate episode of recurrent major depressive disorder F33.1 Active 560738458 Problem Recurrent major depressive disorder, in partial remission F33.41 Active 31101944 Problem Attention deficit hyperactivity disorder (ADHD), predominantly inattentive type F90.0 Active 34346167 ALLERGIES No Information ENCOUNTERS Encounter Location Date Diagnosis [facility] [place] [address] [facility] [id number] [address] Nov, [facility] [place] [id number] [place] [address] Nov, Radiculopathy of cervical region M54.12 [facility] [place] [id number] [address] Nov, Degenerative disc disease, cervical M50.30 ; Degenerative disc disease, lumbar M51.36 and Radiculopathy affecting upper extremity M54.10 [facility] [place] [address] [address] Nov, Recurrent major depressive disorder, in partial remission F33.41 and Attention deficit hyperactivity disorder (ADHD), predominantly inattentive type F90.0 [facility] [place] [address] [id number] [address] Oct, Recurrent major depressive disorder, in partial remission F33.41 [facility] [place] [id number] [place] [address] 8[address]- 2954 Sep, [id number] [place] [address] 8[address]- 5785 Sep, Recurrent major depressive disorder, in partial remission F33.41 [facility] [place] [id number] [place] [address]08- 4294 Sep, [id number] [place] [address] 20507- 3286 Sep, Moderate episode of recurrent major depressive disorder F33.1 [facility] [place] [id number] [place] [address] 12176- 0076 Aug, [facility] [place] [id number] [place] [address] 91306- 4818 Aug, Recurrent major depressive disorder, in partial remission F33.41 and Attention deficit hyperactivity disorder (ADHD), unspecified ADHD type F90.9 [facility] [place] [address] [address] June, Lumbago with sciatica, right side M54.41 ; Other chronic pain G89.29 ; Attention deficit hyperactivity disorder (ADHD), predominantly inattentive type F90.0 and Cervical neuritis M54.12 [facility] [place] [address] [address] June, Moderate episode of recurrent major depressive disorder F33.1 ; Attention deficit hyperactivity disorder (ADHD), unspecified ADHD type F90.9 and MDD (major depressive disorder), recurrent episode, mild F33.0 [facility] [place] [address] [facility] [id number] [place] [address] June, [facility] [address] [facility] [id number] [place] [address] 4716 May, [facility] [address] [facility] [id number] [place] [address] 6[address] Apr, [facility] [address] [facility] [id number] [place] [address]- 5320 Mar, [facility] [address] [facility] [id number] [place] [address] 9246 Feb, [facility] [address] [facility] [id number] [place] [address] 2286 Feb, Moderate episode of recurrent major depressive disorder F33.1 and Attention deficit hyperactivity disorder (ADHD), unspecified ADHD type F90.9 [facility] [place] [address] [facility] [id number] [place] [address]- 9768 Jan, [facility] [address] [facility] [id number] [place] [address]- 9086 Dec, MDD (major depressive disorder), recurrent episode, mild F33.0 [facility] [place] [facility] [address] [facility] [id number] [place] [address]- 3906 Dec, [facility] [place] [address] [facility] [id number], [place] [address] Dec, [facility] [place] [facility] [address] [facility] [id number] [place] [address]- 0846 Dec, MDD (major depressive disorder), recurrent episode, mild F33.0 and Attention deficit hyperactivity disorder (ADHD), unspecified ADHD type F90.9 [facility] [place] [address] [id number] [place] [address]- 2865 Oct, MDD (major depressive disorder), recurrent episode, mild F33.0 and Attention deficit hyperactivity disorder (ADHD), unspecified ADHD type F90.9 [facility] [place] [address] [facility] [id number] [place] [address]- 7283 Aug, Lumbago with sciatica, left side M54.42 ; Lumbago with sciatica, right side M54.41 and Other chronic pain G89.29 [facility] [place] [id number] [place] [address] June, Attention deficit hyperactivity disorder (ADHD), unspecified ADHD type F90.9 and MDD (major depressive disorder), recurrent episode, mild F33.0 [facility] [place] [id number] [place] [address]- 4998 June, Attention deficit hyperactivity disorder (ADHD), unspecified ADHD type F90.9 [facility] [place] [id number] [place] [address]- 4958 May, Attention deficit hyperactivity disorder (ADHD), unspecified ADHD type F90.9 [facility] [place] [id number] [place] [address]- 7469 May, Attention deficit hyperactivity disorder (ADHD), unspecified ADHD type F90.9 and MDD (major depressive disorder), recurrent episode, mild F33.0 [facility] [place] [id number] [place] [address]- 2576 Apr, MDD (major depressive disorder), recurrent episode, mild F33.0 [facility] [place] [id number], [place] [address]- 2763 Apr, MDD (major depressive disorder), recurrent episode, mild F33.0 [facility] [place] [id number] [place] [address]- 7056 Mar, MDD (major depressive disorder), recurrent episode, mild F33.0 [facility] [place] [id number] [place] [address]- 4046 13 Mar, 2016 Cervicalgia M54.2 ; Radiculopathy of cervical region M54.12 ; Lumbago with sciatica, left side M54.42 ; Lumbago with sciatica, right side M54.41 and Other chronic pain G89.29 [facility] [place] [id number] [place] [address] 76951- 2713 Mar, MDD (major depressive disorder), recurrent episode, mild F33.0 and Attention deficit disorder F90.0 [facility] [place] [id number] [place] [address] 68915- 2506 Mar, [facility] [place] [id number] [place] [address] 92635- 6557 Feb, [facility] [place] [id number] [place] [address] 14403- 3141 Jan, [facility] [place] [id number] [place] [address] 93381- 3808 Dec, [facility] [place] [id number] [place] [address] 28906- 7072 Dec, [facility] [place] [id number] [place] [address] 25918- 2422 Nov, MDD (major depressive disorder), recurrent episode, mild F33.0 ; Attention deficit disorder F90.0 and 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 [facility] [place] [address], [place] [address]- 3671 Oct, [facility] [place] [address], [place] [address]- 0620 Oct, [facility] [place] [address], [place] [address]- 8858 Sep, Attention deficit hyperactivity disorder (ADHD), unspecified ADHD type F90.9 [facility] [place] [address], [place] [address]- 0119 Jul, Attention deficit hyperactivity disorder (ADHD), unspecified ADHD type F90.9 [facility] [place] [address], [place] [address]- 7317 Jul, Attention deficit hyperactivity disorder (ADHD), unspecified ADHD type F90.9 ; Dysthymia F34.1 ; Abnormal weight gain R63.5 and Family history of heart disease Z82.49 [facility] [place] [id number] [place] [address] 52134- 8034 29 May, 2015 [facility] [place] [id number] [place] [address] 67625- 5228 Apr, [facility] [place] [id number] [place] [address] 34341- 9350 Mar, [facility] [place] [id number] [place] [address] 32196- 3562 Feb, [facility] [place] [id number] [place] [address] 21248- 3298 Jan, [facility] [place] [id number] [place] [address] 13421- 6296 Jan, [facility] [place] [id number] [place] [address] 83709- 6836 Dec, [facility] [place] [id number] [place] [address] 34283- 8963 Dec, Attention deficit disorder F90.0 [facility] [place] [id number] [place] [address] 66693- 2623 Dec, Attention deficit disorder F90.0 [facility] [place] [id number] [place] [address] 88950- 3787 Nov, [facility] [id number] [place] [address] 92852- 8112 Nov, Attention deficit disorder F90.0 and Low back pain, unspecified back pain laterality, with sciatica presence unspecified M54.5 [facility] [place] [id number] [place] [address] 14732- 0583 Sep, [facility] [place] [id number] [place] [address] 65539- 3645 Sep, Irritable bowel syndrome with constipation 564.1 and Back pain 724.5 [facility] [address] [facility] [id number] [place] [address]- 9636 Aug, [facility] [address] [facility] [id number] [place] [address]- 2546 Aug, [facility] [address] [facility] [id number] [place] [address]- 3476 Jul, [facility] [address] [facility] [id number] [place] [address]- 2546 Jul, [facility] [address] [facility] [id number] [place] [address]- 9285 June, [facility] [address] [facility] [id number] [place] [address]- 4596 June, [facility] [id number] [place] [address]- 2106 May, [facility] [address] [facility] [id number] [place] [address]- 6036 May, [facility] [id number] [place] [address]- 6806 Apr, [facility] [address] [facility] [id number] [place] [address]- 5665 Apr, [facility] [address] [facility] [id number] [place] [address]- 2546 Apr, [facility] [address] [facility] [id number], [place] [address]- 2546 Apr, [facility] [address] [facility] [id number] [place] [address]- 2546 Apr, [facility] [address] [facility] [id number] [place] [address]- 2546 Apr, [facility] [address] [facility] [id number], [place] [address]- 7938 Apr, [facility] [place] [facility] [address] [id number] [place] [address]- 2904 17 Apr, 2014 [facility] [place] [facility] [address] [id number] [place] [address]- 8054 Apr, [facility] [place] [facility] [address] [id number] [place] [address]- 4827 16 Apr, 2014 [facility] [place] [facility] [address] [id number] [place] [address]- 1708 Apr, [facility] [place] [facility] [address] [id number] [place] [address]- 3239 Apr, [facility] [place] [facility] [address] [id number] [place] [address]- 5397 Apr, [facility] [place] [facility] [address] [id number] [place] [address]- 7571 Apr, [facility] [place] [facility] [address] [id number] [place] [address]- 7759 Apr, [facility] [place] [facility] [address] [id number] [place] [address]- 5263 Apr, [facility] [place] [facility] [address] [id number] [place] [address]- 8773 Apr, [facility] [place] [facility] [address] [id number] [place] [address]- 9459 Apr, [facility] [place] [facility] [address] [id number], [place] [address]- 0636 Mar, [facility] [place] [facility] [address] [id number] [place] [address]- 8046 Mar, [facility] [place] [facility] [address] [id number] [place] [address]- 2264 Mar, [facility] [place] [facility] [address] [id number] [place] [address]- 1974 Mar, [facility] [place] [facility] [address] [id number] [place] [address]- 8552 Mar, 2014 [facility] [place] [facility] [address] [id number] [place] [address]- 2051 Mar, 2014 [facility] [place] [facility] [address] [id number] [place] [address]- 0066 18 Mar, 2014 [facility] [place] [facility] [address] [id number] [place] [address]- 7015 Mar, 2014 [facility] [place] [facility] [address] [id number] [place] [address]- 3314 17 Mar, 2014 [facility] [place] [facility] [address] [id number] [place] [address]- 5095 Mar, 2014 [facility] [place] [facility] [address] [facility] [id number] [place] [address]- 3660 Mar, 2014 [facility] [place] [facility] [address] [facility] [id number] [place] [address]- 1341 Mar, 2014 [facility] [place] [facility] [address] [id number] [place] [address]- 5314 Mar, [facility] [place] [facility] [address] [facility] [id number] [place] [address]- 7361 Feb, [facility] [place] [facility] [address] [facility] [id number] [place] [address]- 8570 Feb, [facility] [place] [facility] [address] [id number], [place] [address]- 9839 Feb, [facility] [place] [facility] [address] [id number] [place] [address]- 8660 Feb, [facility] [place] [facility] [address] [id number] [place] [address]- 5448 Jan, [facility] [place] [facility] [address] [id number] [place] 3830 Jan, [facility] [place] [facility] [address] [id number], [place] [address]- 0536 Jan, [facility] [place] [facility] [address] [id number] [place] [address]- 7843 Jan, [facility] [place] [facility] [address] [id number] [place] [address]- 1719 Dec, [facility] [place] [facility] [address] [id number] [place] [address]- 5226 Dec, [facility] [place] [facility] [address] [id number] [place] [address]- 7032 Nov, [facility] [place] [facility] [address] [id number] [place] [address]- 4046 Nov, [facility] [place] [facility] [address] [id number] [place] [address]- 8510 Oct, [facility] [place] [facility] [address] [id number] [place] [address]- 6566 Oct, [facility] [place] [facility] [address] [id number] [place] [address]- 8629 Oct, [facility] [place] [facility] [address] [id number] [place] [address]- 4563 Oct, [facility] [place] [facility] [address] [id number] [place] [address]- 5948 Sep, [facility] [place] [facility] [address] [id number] [place] [address]- 9584 Sep, [facility] [place] [facility] [address] [id number], [place] [address]- 5849 June, [facility] [place] [facility] [address] [id number] [place] [address]- 3719 June, [facility] [place] [facility] [address] [id number] [place] [address]- 9240 Apr, [facility] [place] [facility] [address] [id number] [place] [address]- 3020 Apr, [facility] [place] [facility] [address] [id number] [place] [address]- 6069 Mar, [facility] [place] [facility] [address] [id number] [place] [address]- 2196 Mar, [facility] [place] [facility] [address] [id number] [place] [address]- 8976 Mar, [facility] [place] [facility] [address] [id number] [place] [address]- 5266 Mar, [facility] [place] [facility] [address] [id number] [place] [address]- 0977 Mar, [facility] [place] [facility] [address] [id number] [place] [address]- 2467 Mar, [facility] [place] [facility] [address] [facility] [id number] [place] [address]- 3509 Mar, [facility] [place] [facility] [address] [facility] [id number] [place] [address]- 7890 Mar, [facility] [place] [facility] [address] [facility] [id number] [place] [address]- 8953 Mar, [facility] [place] [facility] [address] [facility] [id number] [place] [address]- 6222 Mar, [facility] [place] [facility] [address] [facility] [id number] [place] [address]- 9997 Mar, [facility] [place] [facility] [address] [id number], [place] [address]- 4644 Jan, [facility] [place] [facility] [address] [id number] [place] [address]- 4993 Jan, [facility] [place] [facility] [address] [id number] [place] [address]- 8765 Jan, [facility] [place] [facility] [address] [facility] [id number] [place] [address]- 3362 Jan, [facility] [place] [facility] [address] [facility] [id number], [place] [address]- 6666 Jan, [facility] [address] [facility] [id number] [place] [address]- 5596 Jan, IMMUNIZATIONS No Known Immunizations SOCIAL HISTORY Never Assessed REASON FOR VISIT MRI of C spine PLAN OF CARE Activity Details Pending Test MRI : Cervical w/o Contrast Pending Test MRI : Thoracic w/o Contrast VITAL SIGNS MEDICATIONS Unknown Medications RESULTS No [...]
--- OUTSIDE RECORDS SUMMARY | 2018-05-16 10:48 | XMS REPORT ---
Author Author RAJESH DYER Organization [facility] Address [address] [place] [address] Care Team Providers Care Director Of Athletics Name Role Phone RAJESH DYER Unavailable PROBLEMS Type Condition ICD9-CM Code DXR15-TI Code Onset Dates Condition Status SNOMED Code Problem Other chronic pain G89.29 Active 92631563 Problem Lumbago with sciatica, right side M54.41 Active 221184055 Problem Lumbago with sciatica, left side M54.42 Active 891543242 Problem Unspecified backache 724.5 Active 779277192 Problem Dysthymia F34.1 Active 18120211 Problem Attention deficit hyperactivity disorder (ADHD), unspecified ADHD type F90.9 Active 055126345 Problem MDD (major depressive disorder), recurrent episode, mild F33.0 Active 76340172 Problem Degenerative disc disease, lumbar M51.36 Active 53238457 Problem Degenerative disc disease, cervical M50.30 Active 43720574 Problem Other chronic pain G89.29 Active 63009460 Problem Moderate episode of recurrent major depressive disorder F33.1 Active 965223202 Problem Recurrent major depressive disorder, in partial remission F33.41 Active 64308989 Problem Attention deficit hyperactivity disorder (ADHD), predominantly inattentive type F90.0 Active 82295681 ALLERGIES No Information ENCOUNTERS Encounter Location Date Diagnosis [facility] [id number] [address] Dec, Recurrent major depressive disorder, in partial remission F33.41 [facility] [address] [address] Nov, Radiculopathy of cervical region M54.12 [facility] [id number] [address] Nov, Degenerative disc disease, cervical M50.30 ; Degenerative disc disease, lumbar M51.36 and Radiculopathy affecting upper extremity M54.10 [place] [id number] [place] [address] 9614 Nov, Recurrent major depressive disorder, in partial remission F33.41 and Attention deficit hyperactivity disorder (ADHD), predominantly inattentive type F90.0 [place] [id number] [place] [address] 16240- 8112 Oct, Recurrent major depressive disorder, in partial remission F33.41 [place] [id number] [place] [address] 63327- 6436 Sep, [place] [id number] [place] [address] 46341- 6041 Sep, Recurrent major depressive disorder, in partial remission F33.41 [place] [id number] [place] [address] 98566- 7908 Sep, [place] [id number] [place] [address] 28546- 0094 Sep, Moderate episode of recurrent major depressive disorder F33.1 [place] [id number] [place] [address] 70982- 5023 Aug, [place] [id number] [place] [address] 18058- 9434 Aug, Recurrent major depressive disorder, in partial remission F33.41 and Attention deficit hyperactivity disorder (ADHD), unspecified ADHD type F90.9 [facility] [address] [address] June, Lumbago with sciatica, right side M54.41 ; Other chronic pain G89.29 ; Attention deficit hyperactivity disorder (ADHD), predominantly inattentive type F90.0 and Cervical neuritis M54.12 [facility] [address] [address] June, Moderate episode of recurrent major depressive disorder F33.1 ; Attention deficit hyperactivity disorder (ADHD), unspecified ADHD type F90.9 and MDD (major depressive disorder), recurrent episode, mild F33.0 [facility] [place] [facility] [address] [facility] [id number] [place] [address] June, [facility] [place] [facility] [address] [id number] [place] [address] 9466 May, [facility] [address] [facility] [id number] [place] [address] 5236 Apr, [facility] [place] [facility] [address] [id number] [place] [address] 7516 Mar, [facility] [place] [facility] [address] [facility] [id number] [place] [address] 7386 Feb, [facility] [place] [facility] [address] [facility] [id number] [place] [address] 3496 Feb, Moderate episode of recurrent major depressive disorder F33.1 and Attention deficit hyperactivity disorder (ADHD), unspecified ADHD type F90.9 [facility] [address] [facility] [id number] [place] [address] 1126 Jan, [facility] [place] [facility] [address] [facility] [id number] [place] [address] 5646 Dec, MDD (major depressive disorder), recurrent episode, mild F33.0 [facility] [place] [facility] [address] [facility] [id number] [place] [address]- 4906 Dec, [facility] [place] [facility] [address] [facility] [id number] [place] [address]- 1736 Dec, [facility] [place] [facility] [address] [facility] [id number] [place] [address]- 7326 Dec, MDD (major depressive disorder), recurrent episode, mild F33.0 and Attention deficit hyperactivity disorder (ADHD), unspecified ADHD type F90.9 [facility] [place] [facility] [address] [id number] [place] [address]- 9176 Oct, MDD (major depressive disorder), recurrent episode, mild F33.0 and Attention deficit hyperactivity disorder (ADHD), unspecified ADHD type F90.9 [facility] [address] [address] Aug, Lumbago with sciatica, left side M54.42 ; Lumbago with sciatica, right side M54.41 and Other chronic pain G89.29 [facility] [id number] [place] [address] 33506- 8177 June, Attention deficit hyperactivity disorder (ADHD), unspecified ADHD type F90.9 and MDD (major depressive disorder), recurrent episode, mild F33.0 [facility] [id number] [place] [address] 01227- 9073 June, Attention deficit hyperactivity disorder (ADHD), unspecified ADHD type F90.9 [facility] [address] [address] May, Attention deficit hyperactivity disorder (ADHD), unspecified ADHD type F90.9 [facility] [address] [address] May, Attention deficit hyperactivity disorder (ADHD), unspecified ADHD type F90.9 and MDD (major depressive disorder), recurrent episode, mild F33.0 [facility] [id number], [place] [address] 8771 Apr, MDD (major depressive disorder), recurrent episode, mild F33.0 [facility] [address] [address] Apr, MDD (major depressive disorder), recurrent episode, mild F33.0 [facility] [address] [address]- 4507 Mar, MDD (major depressive disorder), recurrent episode, mild F33.0 [facility] [address] [address]- 6[address] 13 Mar, 2016 Cervicalgia M54.2 ; Radiculopathy of cervical region M54.12 ; Lumbago with sciatica, left side M54.42 ; Lumbago with sciatica, right side M54.41 and Other chronic pain G89.29 [facility] [id number] [place] [address] 25946- 1400 07 Mar, 2016 MDD (major depressive disorder), recurrent episode, mild F33.0 and Attention deficit disorder F90.0 [facility] [id number] [place] [address] 13249- 2985 Mar, [facility] [id number] [place] [address] 40964- 5650 Feb, [facility] [id number] [place] [address] 62061- 5676 Jan, [facility] [id number] [place] [address] 02236- 5637 Dec, [facility] [id number] [place] [address] 41659- 8019 Dec, [facility] [id number] [place] [address] 01100- 9007 Nov, MDD (major depressive disorder), recurrent episode, mild F33.0 ; Attention deficit disorder F90.0 and Other intermediate (current) drug therapy Z79.899 [facility] [address], [place] [address]- 6729 Oct, [facility] [address], [place] [address]- 8110 Oct, [facility] [address], [place] [address]- 4827 Sep, Attention deficit hyperactivity disorder (ADHD), unspecified ADHD type F90.9 [facility] [address] [address]- 3479 Jul, Attention deficit hyperactivity disorder (ADHD), unspecified ADHD type F90.9 [facility] [id number] [place] [address] 88290- 7317 Jul, Attention deficit hyperactivity disorder (ADHD), unspecified ADHD type F90.9 ; Dysthymia F34.1 ; Abnormal weight gain R63.5 and Family history of heart disease Z82.49 [facility] [id number] [place] [address] 81169- 6327 May, [facility] [id number] [place] [address] 43674- 6719 Apr, [facility] [id number] [place] [address] 46122- 8306 Mar, [facility] [id number] [place] [address] 84396- 4856 Feb, [facility] [id number] [place] [address] 38817- 6016 Jan, [facility] [id number] [place] [address] 87421- 0977 Jan, [facility] [id number] [place] [address] 10488- 3410 Dec, [facility] [id number] [place] [address] 33291- 4716 Dec, Attention deficit disorder F90.0 [facility] [id number] [place] [address] 05336- 8341 Dec, Attention deficit disorder F90.0 [facility] [id number] [place] [address] 82684- 2612 Nov, [facility] [id number] [place] [address] 74212- 0533 Nov, Attention deficit disorder F90.0 and Low back pain, unspecified back pain laterality, with sciatica presence unspecified M54.5 [facility] [address] [address]- 1799 Sep, [facility] [id number] [place] [address]- 2471 Sep, Irritable bowel syndrome with constipation 564.1 and Back pain 724.5 [facility] [place] [facility] [address] [id number] [place] [address]- 1316 Aug, [facility] [place] [facility] [address] [facility] [id number] [place] [address] Aug, [facility] [place] [facility] [address] [id number] [place] [address]- 8102 Jul, [facility] [place] [facility] [address] [id number] [place] [address]6 Jul, [facility] [place] [facility] [address] [facility] [id number] [place] [address]- 4751 June, [facility] [place] [facility] [id number] [place] [address]- 5957 June, [facility] [id number] [place] [address]- 4298 May, [facility] [place] [facility] [address] [facility] [id number] [place] [address]- 2626 May, [facility] [place] [facility] [id number] [address]- 2600 Apr, [facility] [place] [facility] [address] [facility] [id number], [place] [address]- 9832 Apr, [facility] [place] [facility] [address] [facility] [id number] [address]- 8627 Apr, [facility] [place] [facility] [address] [facility] [id number] [place] [address] Apr, [facility] [place] [facility] [address] [facility] [id number] [address]- 4490 Apr, [facility] [place] [facility] [address] [facility] [id number] [address]- 4483 Apr, [facility] [place] [facility] [address] [facility] [id number] [place] [address]- 0747 17 Apr, 2014 [facility] [place] [facility] [address] [id number] [place] [address]- 2061 17 Apr, 2014 [facility] [place] [facility] [address] [id number] [place] [address]- 7282 Apr, [facility] [place] [facility] [address] [id number] [place] [address]- 1902 16 Apr, 2014 [facility] [place] [facility] [address] [id number] [place] [address]- 1238 Apr, [facility] [place] [facility] [address] [id number] [place] [address]- 4515 Apr, [facility] [place] [facility] [address] [id number] [place] [address]- 8669 Apr, 2014 [facility] [place] [facility] [address] [id number] [place] [address]- 7043 Apr, 2014 [facility] [place] [facility] [address] [id number] [place] [address]- 1263 Apr, [facility] [place] [facility] [address] [id number] [place] [address]- 7941 Apr, [facility] [place] [facility] [address] [id number] [place] [address]- 1216 Apr, [facility] [place] [facility] [address] [id number] [place] [address]- 9465 Apr, 2014 [facility] [place] [facility] [address] [id number] [place] [address]- 2707 Mar, [facility] [place] [facility] [address] [id number] [place] [address]- 6000 Mar, 2014 [facility] [place] [facility] [address] [id number] [place] [address]- 6288 Mar, [facility] [place] [facility] [address] [id number] [address]- 7442 Mar, [facility] [place] [facility] [address] [id number] [place] [address]- 0670 Mar, [facility] [place] [facility] [address] [id number] [place] [address]- 5796 Mar, [facility] [place] [facility] [address] [id number] [place] [address]- 5756 Mar, 2014 [facility] [place] [facility] [address] [id number] [place] [address]- 2904 Mar, 2014 [facility] [place] [facility] [address] [id number] [place] [address]- 4020 Mar, [facility] [place] [facility] [address] [id number] [place] [address]- 2203 Mar, [facility] [place] [facility] [address] [id number] [place] [address]- 5175 Mar, [facility] [place] [facility] [address] [id number] [place] [address]- 0426 Mar, [facility] [place] [facility] [address] [id number] [place] [address]- 1462 Mar, [facility] [place] [facility] [address] [id number] [place] [address]- 1202 Feb, [facility] [place] [facility] [address] [id number] [place] [address]- 1331 Feb, [facility] [place] [facility] [address] [id number] [place] [address]- 7823 Feb, [facility] [place] [facility] [address] [id number] [place] [address]- 5826 Feb, [facility] [place] [facility] [address] [id number] [place] [address]- 9448 Jan, [facility] [place] [facility] [address] [facility] [id number] [place] [address]- 6796 Jan, [facility] [place] [facility] [address] [id number] [place] [address]- 8533 Jan, [facility] [place] [facility] [address] [id number] [place] [address]- 2501 Jan, [facility] [place] [facility] [address] [id number] [place] [address]- 2416 Dec, [facility] [place] [facility] [address] [id number] [place] [address]- 1700 Dec, [facility] [place] [facility] [address] [id number] [place] [address]- 4717 Nov, [facility] [place] [facility] [address] [id number] [place] [address]- 2755 Nov, [facility] [place] [facility] [address] [id number] [place] [address]- 1218 Oct, [facility] [place] [facility] [address] [id number] [place] [address]- 2982 Oct, [facility] [place] [facility] [address] [id number] [place] [address]- 3999 Oct, [facility] [place] [facility] [address] [id number] [place] [address]- 5041 Oct, [facility] [place] [facility] [address] [id number] [place] [address]- 8976 Sep, [facility] [place] [facility] [address] [id number] [place] [address]- 2280 Sep, [facility] [place] [facility] [address] [id number] [place] [address]- 7866 June, [facility] [place] [facility] [address] [id number] [place] [address]- 4922 June, [facility] [place] [facility] [address] [id number] [place] [address]- 9976 Apr, [facility] [place] [facility] [address] [id number] [place] [address]- 8849 Apr, [facility] [place] [facility] [address] [id number] [place] [address]- 1660 Mar, [facility] [place] [facility] [address] [id number] [place] [address]- 5276 Mar, [facility] [place] [facility] [address] [id number] [place] [address]- 9746 Mar, [facility] [place] [facility] [address] [id number] [place] [address]- 0408 Mar, [facility] [place] [facility] [address] [id number] [place] [address]- 2104 Mar, [facility] [place] [facility] [address] [id number] [place] [address]- 9641 Mar, [facility] [place] [facility] [address] [id number] [place] [address]- 4604 Mar, [facility] [place] [facility] [address] [id number] [place] [address]- 4375 Mar, [facility] [place] [facility] [address] [id number] [place] [address]- 9024 Mar, [facility] [place] [facility] [address] [id number] [place] [address]- 0583 Mar, [facility] [place] [facility] [address] [id number] [place] [address]- 8898 Mar, [facility] [place] [facility] [address] [id number] [place] [address]- 9805 Jan, [facility] [place] [facility] [address] [id number] [place] [address]- 2547 Jan, [facility] [place] [facility] [address] [id number] [place] [address]- 9056 Jan, [facility] [place] [facility] [address] [facility] [id number] [place] [address]- 5854 Jan, [facility] [place] [facility] [address] [facility] [id number] [place] [address] 3698 Jan, [facility] [address] [facility] [id number] [place] [address]- 5223 Jan, IMMUNIZATIONS No Known Immunizations SOCIAL HISTORY Never Assessed REASON FOR VISIT adderall 12/27/2017 PLAN OF CARE VITAL SIGNS MEDICATIONS Medication Instructions Dosage Frequency Start Date End Date Duration Status Adderall XR 20 MG Orally Once a day 1 capsule in the morning 24h Dec, 28 days Active RESULTS No Results [...]
--- OUTSIDE RECORDS SUMMARY | 2018-05-16 10:49 | XMS REPORT ---
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 Name Role Phone MAGED JOCELYN Unavailable PROBLEMS Type Condition ICD9-CM Code QDL45-LR Code Onset Dates Condition Status SNOMED Code Problem Dysthymia F34.1 Active 60719601 Problem Other chronic pain G89.29 Active 93692727 Problem MDD (major depressive disorder), recurrent episode, mild F33.0 Active 40287137 Problem Unspecified backache 724.5 Active 768935287 Problem Attention deficit hyperactivity disorder (ADHD), unspecified ADHD type F90.9 Active 348820684 Problem Recurrent major depressive disorder, in partial remission F33.41 Active 67942441 Problem Other chronic pain G89.29 Active 54460659 Problem Lumbago with sciatica, right side M54.41 Active 458344551 Problem Lumbago with sciatica, left side M54.42 Active 596159052 Problem Attention deficit hyperactivity disorder (ADHD), predominantly inattentive type F90.0 Active 41936889 Problem Moderate episode of recurrent major depressive disorder F33.1 Active 006773727 ALLERGIES No Information ENCOUNTERS Encounter Location Date Diagnosis [facility] [id number] [address] Nov, [facility] [id number] [address] Nov, Recurrent major depressive disorder, in partial remission F33.41 and Attention deficit hyperactivity disorder (ADHD), predominantly inattentive type F90.0 [facility] [id number] [address] Oct, Recurrent major depressive disorder, in partial remission F33.41 [facility] [id number] [address] Sep, [facility] [address], [place] [address] Sep, Recurrent major depressive disorder, in partial remission F33.41 [facility] [address], [place] [address] Sep, [facility] [address] [address] Sep, Moderate episode of recurrent major depressive disorder F33.1 [facility] [address], [place] [address] Aug, [facility] [address] [address] Aug, Recurrent major depressive disorder, in partial remission F33.41 and Attention deficit hyperactivity disorder (ADHD), unspecified ADHD type F90.9 [facility] [address], [place] [address] June, Lumbago with sciatica, right side M54.41 ; Other chronic pain G89.29 ; Attention deficit hyperactivity disorder (ADHD), predominantly inattentive type F90.0 and Cervical neuritis M54.12 [facility] [address], [place] [address] June, Moderate episode of recurrent major depressive disorder F33.1 ; Attention deficit hyperactivity disorder (ADHD), unspecified ADHD type F90.9 and MDD (major depressive disorder), recurrent episode, mild F33.0 [facility] [address], [place] [address] June, [facility] [address], [place] [address] May, [facility] [address], [place] [address] 160[address] Apr, [facility] [address], [place] [address] Mar, [facility] [address] [place] [address] Feb, [facility] [address], [place] [address] Feb, Moderate episode of recurrent major depressive disorder F33.1 and Attention deficit hyperactivity disorder (ADHD), unspecified ADHD type F90.9 [facility] [address] [place] [address] Jan, [facility] [address] [place] [address] Dec, MDD (major depressive disorder), recurrent episode, mild F33.0 [facility] [address] [place] [address] 4[address] Dec, [facility] [address] [place] [address]- 25[address] Dec, [facility] [id number] [place] [address] Dec, MDD (major depressive disorder), recurrent episode, mild F33.0 and Attention deficit hyperactivity disorder (ADHD), unspecified ADHD type F90.9 [facility] [id number] [place] [address] Oct, MDD (major depressive disorder), recurrent episode, mild F33.0 and Attention deficit hyperactivity disorder (ADHD), unspecified ADHD type F90.9 [facility] [id number] [place] [address] Aug, Lumbago with sciatica, left side M54.42 ; Lumbago with sciatica, right side M54.41 and Other chronic pain G89.29 [facility] [id number] [place] [address] June, Attention deficit hyperactivity disorder (ADHD), unspecified ADHD type F90.9 and MDD (major depressive disorder), recurrent episode, mild F33.0 [facility] [address], [place] [address] June, Attention deficit hyperactivity disorder (ADHD), unspecified ADHD type F90.9 [facility] [address], [place] [address] May, Attention deficit hyperactivity disorder (ADHD), unspecified ADHD type F90.9 [facility] [address], [place] [address] May, Attention deficit hyperactivity disorder (ADHD), unspecified ADHD type F90.9 and MDD (major depressive disorder), recurrent episode, mild F33.0 [facility] [address], [place] [address] Apr, MDD (major depressive disorder), recurrent episode, mild F33.0 [facility] [address], [place] [address] Apr, MDD (major depressive disorder), recurrent episode, mild F33.0 [facility] [address], [place] [address] Mar, MDD (major depressive disorder), recurrent episode, mild F33.0 [facility] [address], [place] [address] Mar, Cervicalgia M54.2 ; Radiculopathy of cervical region M54.12 ; Lumbago with sciatica, left side M54.42 ; Lumbago with sciatica, right side M54.41 and Other chronic pain G89.29 [facility] [address], [place] [address] Mar, MDD (major depressive disorder), recurrent episode, mild F33.0 and Attention deficit disorder F90.0 [facility] [address], [place] [address] 57[address] Mar, [facility] [id number] [place] [address]- 8868 Feb, [facility] [address], [place] [address] Jan, [facility] [address] Dec, [facility] [address], [place] [address] Dec, [facility] [id number] Nov, MDD (major depressive disorder), recurrent episode, mild F33.0 ; Attention deficit disorder F90.0 and 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 block 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 (current) 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 therapy Z79.899 [facility] [address] [address] Oct, [facility] [address], [place] [address] Oct, [facility] [address], [place] [address] 8[address] Sep, Attention deficit hyperactivity disorder (ADHD), unspecified ADHD type F90.9 [facility] [address], [place] [address]- [address] Jul, Attention deficit hyperactivity disorder (ADHD), unspecified ADHD type F90.9 [facility] [address], [place] [address]- [address] Jul, Attention deficit hyperactivity disorder (ADHD), unspecified ADHD type F90.9 ; Dysthymia F34.1 ; Abnormal weight gain R63.5 and Family history of heart disease Z82.49 [facility] [address], [place] [address] May, [facility] [address], [place] [address] 72[address] Apr, [facility] [address], [place] [address] 49[address] Mar, [facility] [address], [place] [address]- 09[address] Feb, [facility] [id number] [place] [address]- 9186 Jan, [facility] [id number] [place] [address]- 9702 Jan, [facility] [id number] [place] [address]- 1897 Dec, [facility] [id number] [place] [address]- 7040 Dec, Attention deficit disorder F90.0 [facility] [id number] [place] [address]- 5586 Dec, Attention deficit disorder F90.0 [facility] [id number] [place] [address]- 3032 Nov, [facility] [id number] [place] [address]- 6219 Nov, Attention deficit disorder F90.0 and Low back pain, unspecified back pain laterality, with sciatica presence unspecified M54.5 [facility] [address], [place] [address]- 9[address] Sep, [facility] [id number] [place] [address] 7[address]398- 0189 Sep, Irritable bowel syndrome with constipation 564.1 and Back pain 724.5 [facility] [id number] [place] [address]- 7425 Aug, [facility] [id number] [place] [address]- 8138 Aug, [facility] [id number] [place] [address]119[address]- 9698 Jul, [facility] [id number] [place] [address]- 9523 Jul, [facility] [place] [facility] [address] [id number] [place] [address]- 5927 June, [facility] [place] [facility] [address] [id number] [place] [address]- 8092 June, [facility] [place] [facility] [address] [id number] [place] [address]- 6799 May, [facility] [place] [facility] [address] [id number] [place] [address]- 1736 May, [facility] [place] [facility] [address] [id number] [place] [address]- 8036 Apr, [facility] [place] [facility] [address] [id number] [place] [address]- 9354 26 Apr, 2014 [facility] [place] [facility] [address] [id number] [place] [address]- 0065 19 Apr, 2014 [facility] [place] [facility] [address] [id number] [place] [address]- 4998 19 Apr, 2014 [facility] [place] [facility] [address] [id number] [place] [address]- 5303 17 Apr, 2014 [facility] [place] [facility] [address] [facility] [id number] [place] [address]- 6449 17 Apr, 2014 [facility] [place] [facility] [address] [id number] [place] [address]- 7895 17 Apr, 2014 [facility] [place] [facility] [address] [id number] [place] [address]- 6872 17 Apr, 2014 [facility] [place] [facility] [address] [id number] [place] [address]- 6897 16 Apr, 2014 [facility] [place] [facility] [address] [id number] [place] [address]- 3127 16 Apr, 2014 [facility] [place] [facility] [address] [id number] [place] [address]- 4232 14 Apr, 2014 [facility] [place] [facility] [address] [id number] [place] [address]- 2506 14 Apr, 2014 [facility] [place] [facility] [address] [id number] [place] [address]- 2144 Apr, 2014 [facility] [place] [facility] [address] [id number] [place] [address]- 6488 Apr, 2014 [facility] [place] [facility] [address] [id number] [place] [address]- 8778 Apr, 2014 [facility] [place] [facility] [address] [id number] [place] [address]- 8153 Apr, 2014 [facility] [place] [facility] [address] [id number] [place] [address]- 8773 Apr, 2014 [facility] [place] [facility] [address] [facility] [id number] [place] [address]- 4854 Apr, 2014 [facility] [place] [facility] [address] [facility] [id number] [place] [address]- 3180 Mar, 2014 [facility] [place] [facility] [address] [facility] [id number] [place] [address]- 9225 Mar, 2014 [facility] [place] [facility] [address] [facility] [id number] [place] [address]- 3343 Mar, 2014 [facility] [place] [facility] [address] [facility] [id number] [place] [address]- 1866 Mar, 2014 [facility] [place] [facility] [address] [facility] [id number] [address]- 3649 Mar, 2014 [facility] [place] [facility] [address] [facility] [id number] [place] [address]- 8659 Mar, 2014 [facility] [place] [facility] [address] [facility] [id number] [place] [address]- 5655 Mar, 2014 [facility] [place] [facility] [address] [facility] [id number] 65[address] Mar, 2014 [facility] [place] [facility] [address] [facility] [id number], [place] [address]- 8187 17 Mar, 2014 [facility] [place] [facility] [address] [id number] [place] [address]- 5620 14 Mar, 2014 [facility] [place] [facility] [address] [id number] [place] [address]- 9880 14 Mar, 2014 [facility] [place] [facility] [address] [id number] [place] [address]- 2636 Mar, [facility] [place] [facility] [address] [id number] [place] [address]- 1430 Mar, [facility] [place] [facility] [address] [id number] [place] [address]- 5776 Feb, [facility] [place] [facility] [address] [facility] [id number] [place] [address]- 0822 Feb, [facility] [place] [facility] [address] [facility] [id number] [place] [address]- 7269 Feb, [facility] [place] [facility] [address] [facility] [id number] [place] [address]- 0369 Feb, [facility] [place] [facility] [address] [facility] [id number] [place] [address]- 8195 Jan, [facility] [place] [facility] [address] [facility] [id number] [place] [address]- 9281 Jan, [facility] [place] [facility] [address] [facility] [id number] [place] [address]- 8593 Jan, [facility] [place] [facility] [address] [facility] [id number] [place] [address]- 6032 Jan, [facility] [place] [facility] [address] [id number] [place] [address]- 5898 Dec, [facility] [place] [facility] [address] [facility] [id number] [place] [address]- 9796 Dec, [facility] [place] [facility] [address] [id number] [place] [address]- 3356 Nov, [facility] [place] [facility] [address] [id number] [place] [address]- 4289 Nov, [facility] [place] [facility] [address] [id number] [place] [address]- 2225 Oct, [facility] [place] [facility] [address] [id number] [place] [address]- 2611 Oct, [facility] [place] [facility] [address] [id number] [place] [address]- 7069 Oct, [facility] [place] [facility] [address] [id number] [place] [address]- 2431 Oct, [facility] [place] [facility] [address] [id number] [place] [address]- 4238 Sep, [facility] [place] [facility] [address] [id number] [place] [address]- 3507 Sep, [facility] [place] [facility] [address] [id number] [place] [address]- 1335 June, [facility] [place] [facility] [address] [id number] [place] [address]- 5027 June, [facility] [place] [facility] [address] [id number] [place] [address]- 8410 Apr, [facility] [place] [facility] [address] [id number] [place] [address]- 4004 Apr, [facility] [place] [facility] [address] [id number] [place] [address]- 2371 Mar, [facility] [place] [facility] [address] [id number] [place] [address]- 8168 Mar, [facility] [place] [facility] [address] [id number] [place] [address]- 6586 Mar, [facility] [place] [facility] [address] [id number] [place] 4354 Mar, [facility] [place] [facility] [id number] [address]- 4081 Mar, [facility] [id number] [place] [address] 47150- 3210 Mar, [facility] [address] [address]121 Mar, [facility] [id number] [place] [address] 06865- 0038 Mar, [facility] [id number] [place] [address] 79931- 4493 Mar, [facility] [id number] [place] [address] 11751- 6430 Mar, [facility] [id number] [place] [address] 61685- 4693 Mar, [facility] [id number] [place] [address] 76869- 9816 Jan, [facility] [id number] [place] [address] 83877- 7894 Jan, [facility] [id number] [place] [address] 05343- 2782 Jan, [facility] [address], [place] [address]- 8054 Jan, [facility] [id number] [place] [address] 99379- 8190 Jan, [facility] [address], [place] [address]- 0978 Jan, IMMUNIZATIONS No Known Immunizations SOCIAL HISTORY Never Assessed REASON FOR VISIT f/u PLAN OF CARE Activity Details Follow Up 2 Months Reason: VITAL SIGNS Height 67 in 2017-11-28 Blood pressure systolic 142 mmHg 2017-11-28 Blood pressure diastolic 92 mmHg 2017-11-28 MEDICATIONS Medication Instructions Dosage Frequency Start Date End Date Duration Status Adderall XR 20 MG Orally Once a day 1 capsule in the morning 24h Nov, 28 days Active Cymbalta 60 mg Orally [...]
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
[2018-05-16] MEDS ORDERED: methylPREDNISolone 40 MG/ML (DEPO MEDROL) VIAL IM ONE (11:00)
[2018-05-16] MEDS ORDERED: KETOROLAC 30 MG/ML VIAL IM ONE (11:00)
--- NOTE | 2018-05-16 11:03 | ED Neck-Back Pain/Injury ---
General Stated Complaint: NECK/ARM PAIN Source of Information: Patient Exam Limitations: No Limitations History of Present Illness Date Seen by Provider: May 16, 2018 Time Seen by Provider: 10:50 Initial Comments Patient presents to ER by private conveyance with chief complaint of multiple years of neck and back pain. She has been followed by Sonal Randolph at [facility] and was recommended to see a neurologist and surgeon about her back for her sciatica that was bilateral past but today was concerning her is that for the past 4 days she's been dropping things and having paresthesias and weakness and bilateral upper extremities. She has neck pain which she's been using massage, Tylenol and ibuprofen at appropriate doses. Several time she's been recommended to get steroids but she did not pick them up because she is afraid they would make her fat. She's never been evaluated by a spinal surgeon. She's had a neurologist told her that the pain in her neck would only cause worsening paresthesias and would need to be taken care of but she never followed up. Today she decided that this was the day she would get it taken care of and presents for treatment of her pain, paresthesias and weakness of her bilateral upper extremities. The patient is on Cymbalta for her depression as well as her neuropathies. She reports that it works well time. She's had MRI several years ago but no recent imaging. No history of neck or back surgery. Last menstrual period concluded 2 days ago. Allergies and Home Medications Allergies Coded Allergies: No Known Drug Allergies (Unverified , 07/12/13) Home Medications Fluoxetine Hcl 40 Mg Capsule, 40 MG PO HS, (Reported) Patient Home Medication List Home Medication List Reviewed: Yes Review of Systems Constitutional: No chills, No diaphoresis EENTM: No ear discharge, No hearing loss, No ear pain Respiratory: No cough, No short of breath Cardiovascular: No chest pain, No edema Gastrointestinal: No abdominal pain, No constipation, No diarrhea, No nausea Genitourinary: No discharge, No dysuria Past Pvphive-Mndmdc-Igfsev Hx Patient Social History Alcohol Use: Occasionally Uses Recreational Drug Use: No Smoking Status: Never a Smoker Recent Foreign Travel: No Contact w/Someone Who Travel: No Immunizations Up To Date Tetanus Booster (TDap): More than 5yrs PED Vaccines UTD: Yes Seasonal Allergies Seasonal Allergies: Yes Past Medical History Surgeries: Yes Adenoidectomy, Tonsillectomy Respiratory: Yes Asthma Cardiac: No Neurological: No Reproductive Disorders: No Gastrointestinal: No Musculoskeletal: Yes Degenerate Disk Disease, Chronic Back Pain Endocrine: No Loss of Vision: Denies Hearing Impairment: Denies Cancer: No Psychosocial: Yes Anxiety, Depression Integumentary: No Blood Disorders: No Adverse Reaction/Blood Tranf: No Family Medical History Alcoholism 19 MOTHER FH: emphysema 19 MOTHER No Pertinent Family Hx Physical Exam Vital Signs Vital Signs - First Documented 05/16/18 10:46 Temp 98.5 Pulse 85 Resp 18 B/P (MAP) 142/92 (109) Pulse Ox 96 O2 Delivery Room Air Capillary Refill : Height, Weight, BMI Height: 5'8.00" Weight: 190lbs. oz. 86.230190be; 32.61 BMI Method:Stated General Appearance: WD/WN, Anxious HEENT: PERRL/EOMI, Pharynx Normal, Moist Mucous Membranes Neck: Full Range of Motion, Normal Inspection Cardiovascular: Regular Rate, Rhythm, No Edema Respiratory: No Accessory Muscle Use, No Respiratory Distress Peripheral Pulses: 2+ Radial Pulses (R), 2+ Radial Pulses (L) Extremity: Normal Capillary Refill, Normal Inspection (no thenar wasting.), Normal Range of Motion, Non Tender, No Pedal Edema, Other (bilateral upper extremities normal inspection and range of motion. Box Liner 4 out of 5 bilateral.) Progress/Results/Core Measures Results/Orders My Orders Orders - PIERRE ARELLANO Ct Cervical Spine Wo (05/16/18 10:56) Ketorolac Injection (Toradol Injection) (05/16/18 11:00) Methylprednisolone Acetate Inj (Depo-Med (05/16/18 11:00) Urine Bedside (05/16/18 11:03) Medications Given in ED Current Medications Medications Dose Ordered Sig/Kitty Route Start Time Stop Time Status Last Admin Dose Admin Ketorolac Tromethamine 30 mg ONCE ONCE IM 05/16/18 11:00 05/16/18 11:01 DC 05/16/18 11:05 30 MG Methylprednisolone Acetate 40 mg ONCE ONCE IM 05/16/18 11:00 05/16/18 11:01 DC 05/16/18 11:04 40 MG Vital Signs/I&O 05/16/18 10:46 Temp 98.5 Pulse 85 Resp 18 B/P (MAP) 142/92 (109) Pulse Ox 96 O2 Delivery Room Air Progress Progress Note : Time: 11:04 Progress Note Patient's midline neck and bilateral sides are tender to palpation re-creating some of her paresthesias. Since it involved both sides we have offered to do a CT versus just having her follow up with neurosurgery/orthopedic spinal surgeon for more definitive repeat MRI. MRI from 2017 did demonstrate some central and foraminal stenosis at the level of C5/C6. She hasn't had any Tylenol or Motrin today so we'll try some Toradol and Depo-Medrol and have her follow up with some prednisone. We'll give referral to orthopedic surgery. Negative head CT from November 2017. 2017 MRI of the cervical spine: Diffuse multilevel cervical spine degenerative disc disease. C5 through C6 diffuse disc bulge with uncinate spurs and posterior disc osteophyte complex causing mild to moderate central canal narrowing and [id number] bilateral neural foraminal narrowing. Diagnostic Imaging Diagonstic Imaging: CT (non contrast) Plain Films/CT/US/NM/MRI: c-spine Comments NAME: AZUCENA PURCELL [facility] REC#: [id number] PT STATUS: REG ER : 1975 PHYSICIAN: PIERRE ARELLANO MD ADMIT DATE: 05/16/18/ER Draft Date of Exam:05/16/18 CT CERVICAL SPINE WO PROCEDURE: CT cervical spine without contrast. TECHNIQUE: Multiple contiguous axial images were obtained through the cervical spine without the use of intravenous contrast. Sagittal and coronal reformations were then performed. Auto Exposure Controls were utilized during the CT exam to meet ALARA standards for radiation dose reduction. INDICATION: Neck pain. FINDINGS: Alignment is normal. There is degenerative disc disease at C5-C6 level with disc space narrowing and marginal spurring. No fractures are seen. The prevertebral tissues are within normal limits. The odontoid is intact. IMPRESSION: Cervical spondylosis. No acute bony abnormality is detected. Dictated on workstation # [id number] Dict: 05/16/18 1133 Trans: 05/16/18 1139 [facility] [id number] Interpreted by: KELLY ROCA MD Electronically signed by: Reviewed: Reviewed by Me Departure Impression Primary Impression: Cervical radiculopathy due to degenerative joint disease of spine Additional Impression: Paresthesia and pain of both upper extremities Disposition: 01 HOME, SELF-CARE Condition: Stable Departure-Patient Inst. Decision time for Depature: 11:55 Referrals: ANTONINO MAGANA DO (PCP) Primary Care Physician SONAL RANDOLPH (Family) Primary Care Physician ALLYSON GUAMAN DO Patient Instructions: Radiculopathy (DC) Add. 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 He should start seeing some improvement from the steroids within 1-2 days. Continue to take the ibuprofen 4 tablets 3 times a day or Naprosyn 2 tablets twice a day in addition to the Tylenol 1000 mg every 8 hours as necessary for pain. You can use heating pads, massage, topical creams such as Capsaicin oil or icy hot. Call [facility] and request an appointment with one of their spinal surgeons for evaluation within the next week or 2. Follow-up with primary care for continued management of your symptoms until you can seek definitive treatment. Scripts Prednisone (Prednisone) 20 Mg Tab 40 MG PO DAILY for 4 Days, #8 TAB 0 Refills Prov: PIERRE ARELLANO 05/16/18 Work/School Note: Work Release Form Date Seen in the Emergency Department: May 16, 2018 Return to Work: May 17, 2018 Restrictions: No Restrictions Copy Copies To 1: ALLYSON GUAMAN TITUS J May 16, 2018 11:03
--- NOTE | 2018-05-16 11:40 | Diagnostic Imaging Report ---
PROCEDURE: CT cervical spine without contrast. TECHNIQUE: Multiple contiguous axial images were obtained through the cervical spine without the use of intravenous contrast. Sagittal and coronal reformations were then performed. Auto Exposure Controls were utilized during the CT exam to meet ALARA standards for radiation dose reduction. INDICATION: Neck pain. FINDINGS: Alignment is normal. There is degenerative disc disease at C5-C6 level with disc space narrowing and marginal spurring. No fractures are seen. The prevertebral tissues are within normal limits. The odontoid is intact. IMPRESSION: Cervical spondylosis. No acute bony abnormality is detected. Dictated by: Dictated on workstation # [id number]
[2018-05-16] MEDS ORDERED: PRD20T PO (12:00)
[2018-05-16 12:02] VITALS: BP 170/100
== END 2018-05-16 12:02 | disposition home or self-care (01) ==
LOC: EDUNIT# 10:42 → ER 10:44
DX: M50.10 Cervical disc disorder with radiculopathy, unspecified cervical region (principal); R20.2 Paresthesia of skin; F32.9 Major depressive disorder, single episode, unspecified; J45.909 Unspecified asthma, uncomplicated; F41.9 Anxiety disorder, unspecified; Z90.89 Acquired absence of other organs
CPT/HCPCS: 72125

== ENCOUNTER 2019-03-11 16:38 | Emergency (ER) | payer SELFPAY ==
[~2019-03-11] VITALS: Ht 172.7 cm; Wt 96.2 kg
[2019-03-11] MEDS ORDERED: methylPREDNISolone 125 MG (Solu-MEDROL) VIAL IM ONE (17:15)
[2019-03-11] MEDS ORDERED: KETOROLAC 60 MG/2 ML VIAL IM ONE (17:15)
[2019-03-11 17:28] LABS: HCG,QUALITATIVE URINE NEGATIVE (NEGATIVE)
--- NOTE | 2019-03-11 17:37 | ED General ---
General Chief Complaint: General Problems/Pain Stated Complaint: SWELLING IN HANDS/ARMS/FACE Nursing Triage Note: Patient presents to the ED with c/o neck, face, arm swelling and pain. Patient states she has degenerative disk disease and when it flares up it causes intense pain and selling in her arms and hands. She reports that the facial swelling is new and began yesterday evening. Nursing Sepsis Screen: No Definite Risk Source of Information: Patient, Caregiver History of Present Illness Date Seen by Provider: Mar 11, 2019 Time Seen by Provider: 17:05 Initial Comments 44-year-old female presents to the emergency room with complaints of facial neck and arm pain and radiculopathy. Patient states that she has cervical disc disease and that she has been told that she has need to have cervical fusions. She states that she has facial swelling that is new and began yesterday evening. Her chronic neck pain had exacerbated recently and now she states that she comes into the emergency room. She states that she normally gets an anti-inflammatory shot and steroid injections. Patient has given informed consent for diagnostic and therapeutic services. Toradol 60 mg IM and Solu-Medrol 125 mg IM have been ordered. Patient denies any history of cardiac pulmonary GI or renal disease. Timing/Duration: 2-3 Days Severity: Moderate Modifying Factors: improves with Movement, improves with Rest Associated Systoms: Cough, Fever/Chills, Headaches, Loss of Appetite, Nausea/Vomiting, Weakness Allergies and Home Medications Allergies Coded Allergies: No Known Drug Allergies (Unverified , 07/12/13) Home Medications Fluoxetine Hcl 40 Mg Capsule, 40 MG PO HS, (Reported) Prednisone 20 Mg Tab, 40 MG PO DAILY Prescribed by: PIERRE ARELLANO on 05/16/18 1200 Patient Home Medication List Home Medication List Reviewed: Yes Review of Systems Review of Systems Constitutional: chills, fever, malaise, weakness, other (generalized achiness a nd muscle pain. The lateral changes in her both upper extremities) EENTM: tearing, mouth pain, nose congestion Respiratory: cough, dyspnea on exertion, short of breath Cardiovascular: chest pain, syncope (patient reports episodes of hypotension and syncope with weakness in light of a history of coronary artery disease) Gastrointestinal: nausea Genitourinary: no symptoms reported : No Musculoskeletal: back pain, joint pain, muscle stiffness, muscle weakness, other (bilateral arm pain hospital from cervical radiculopathy) Skin: no symptoms reported Psychiatric/Neurological: Anxiety, Depressed (from chest pain and concern about possible coronary disease), Weakness Hematologic/Lymphatic: No Symptoms Reported Immunological/Allergic: no symptoms reported Past Aqobpqa-Gtajfl-[id number] Hx Patient Social History Alcohol Use: Occasionally Uses Recreational Drug Use: Yes Drug of Choice: marijuana opiates and methamphetamine patient states that she is in trouble Smoking Status: Current Everyday Smoker 2nd Hand Smoke Exposure: Yes Recent Foreign Travel: No Contact w/Someone Who Travel: No Recent Infectious Disease Expo: No Physical Abuse: No Sexual Abuse: No Mistreated: No Fear: No Immunizations Up To Date Tetanus Booster (TDap): More than 5yrs PED Vaccines UTD: Yes Seasonal Allergies Seasonal Allergies: Yes Past Medical History Surgeries: Yes Adenoidectomy, Tonsillectomy Respiratory: Yes Asthma Cardiac: No Neurological: No Reproductive Disorders: No Genitourinary: No Gastrointestinal: No Musculoskeletal: Yes Degenerate Disk Disease, Chronic Back Pain Endocrine: No HEENT: No Loss of Vision: Denies Hearing Impairment: Denies Cancer: No Psychosocial: Yes Anxiety, Depression Integumentary: No Blood Disorders: No Adverse Reaction/Blood Tranf: No Family Medical History Alcoholism 19 MOTHER FH: emphysema 19 MOTHER No Pertinent Family Hx Physical Exam Vital Signs Vital Signs - First Documented 03/11/19 16:40 Temp 36.6 Pulse 104 Resp 18 B/P (MAP) 180/104 (129) Pulse Ox 100 O2 Delivery Room Air Capillary Refill : Less Than 3 Seconds Height, Weight, BMI Height: 5'8.00" Weight: 200lbs. oz. [id number]; 32.00 BMI Method:Stated General Appearance: WD/WN, Anxious, Moderate Distress, Other (morbid obesity) HEENT: PERRL/EOMI, Normal ENT Inspection, Pharynx Normal Neck: Normal Inspection, Limited Range of Motion, Tender Lateral, Tender Midline, Other (cervicalgia with bilateral radiculopathy) Respiratory: Chest Non Tender, Lungs Clear, Normal Breath Sounds, No Accessory Muscle Use, No Respiratory Distress Cardiovascular: Regular Rate, Rhythm, No Edema, No Gallop, No JVD, No Murmur, Normal Peripheral Pulses Gastrointestinal: Normal Bowel Sounds, No Organomegaly, No Pulsatile Mass, Non Tender, Soft Back: Normal Inspection, No CVA Tenderness, No Vertebral Tenderness, Other (neck spasms with radiculopathy) Extremity: Normal Capillary Refill, Normal Inspection, Normal Range of Motion, No Calf Tenderness, Other (swelling and tenderness in the upper extremities consistent with cervical radiculopathy) Neurologic/Psychiatric: Alert, Oriented x3, No Motor/Sensory Deficits, 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 as Tested, Motor Weakness, Other (lateral upper extremity radicular type pain) Skin: Normal Color, Warm/Dry Lymphatic: No Adenopathy Progress/Results/Core Measures Suspected Sepsis Recent Fever Within 48 Hours: No Infection Criteria Present: None New/Unexplained Altered Menta: No Sepsis Screen: No Definite Risk SIRS Temperature: Pulse: 104 Respiratory Rate: 18 Blood Pressure 180 /104 Mean: 129 Results/Orders Lab Results Laboratory Tests Test 03/11/19 17:15 Range/Units Urine Test NEGATIVE NEGATIVE Urine Opiates Screen POSITIVE H NEGATIVE Urine Oxycodone Screen NEGATIVE NEGATIVE Urine Methadone Screen NEGATIVE NEGATIVE Urine Propoxyphene Screen NEGATIVE NEGATIVE Urine Barbiturates Screen NEGATIVE NEGATIVE Ur Tricyclic Antidepressants Screen NEGATIVE NEGATIVE Urine Phencyclidine Screen NEGATIVE NEGATIVE Urine Amphetamines Screen POSITIVE H NEGATIVE Urine Methamphetamines Screen POSITIVE H NEGATIVE Urine Benzodiazepines Screen NEGATIVE NEGATIVE Urine Cocaine Screen NEGATIVE NEGATIVE Urine Cannabinoids Screen POSITIVE H NEGATIVE Micro Results Microbiology 03/11/19 Influenza Types A,B Antigen ([facility]) - Final, Complete My Orders Orders - ELO GUTIERREZ DO Ketorolac Injection (Toradol Injection) (03/11/19 17:15) Methylprednisolone Sod Succ (Solu-Medrol (03/11/19 17:15) Influenza A And B Antigens (03/11/19 17:02) Drug Screen Stat (Urine) (03/11/19 17:02) Hcg,Qualitative Urine (03/11/19 17:02) Medications Given in ED Current Medications Medications Dose Ordered Sig/Kitty Route Start Time Stop Time Status Last Admin Dose Admin Ketorolac Tromethamine 60 mg ONCE ONCE IM 03/11/19 17:15 03/11/19 17:16 DC 03/11/19 17:17 60 MG Methylprednisolone Sodium Succinate 125 mg ONCE ONCE IM 03/11/19 17:15 03/11/19 17:16 DC 03/11/19 17:17 125 MG Vital Signs/I&O 03/11/19 16:40 Temp 36.6 Pulse 104 Resp 18 B/P (MAP) 180/104 (129) Pulse Ox 100 O2 Delivery Room Air Capillary Refill : Less Than 3 Seconds Blood Pressure Mean: 129 Progress Note : Time: 17:55 Progress Note Patient's urine drug was positive for opiates which she got from her from and methamphetamine which she is using on a regular basis. Patient also has THC in her urine. She does admit that she feels that she is in trouble with drug use wants to have a referral. She will follow-up with her primary care provider in [place]. She also has been recommended to participate the local drug treatment programs here in [place]. Departure Impression Primary Impression: Cervicalgia Additional Impressions: Methamphetamine abuse Chronic pain syndrome Disposition: HOME, SELF-CARE Condition: Stable Departure-Patient Inst. Decision time for Depature: 17:58 Referrals: ANTONINO MAGANA DO (PCP) Primary Care Physician MACHO RANDOLPH (Family) Primary Care Physician Patient Instructions: Active Range of Motion Exercises, Neck and Shoulders, CHRONIC PAIN, Methamphetamine, Prescription Drug Abuse (DC) Add. Discharge Instructions: Patient should alternate hot towels with ice bottles for her neck to decrease swelling and pain with the ice and increased range of motion with the warm towels. She should follow-up with her primary care providers. Patient has been strongly recommended to work with a treatment program to help her stop using methamphetamines. I have highly recommended to her to stop using street opioids as these are dangerous and could be associated with an unintentional overdose. Naproxen 500 mg twice a day recommended for chronic pain syndrome however she needs to be careful to hydrate adequately with at least 3 quarts of water per day. All discharge instructions reviewed with patient and/or family. Voiced understanding. Scripts Naproxen (Naprosyn) 500 Mg Tablet 500 MG PO BID for Back Pain MDD 1000 for 10 Days, #30 TAB 0 Refills push water when taking naproxen Prov: ELO GUTIERREZ DO 03/11/19 ELO GUTIERREZ DO Mar 11, 2019 17:37
[2019-03-11 17:38] LABS: AMPHETAMINE SCREEN, URINE POSITIVE (NEGATIVE); BENZODIAZEPINES SCREEN URINE NEGATIVE (NEGATIVE); CANNABINOID SCREEN, URINE POSITIVE (NEGATIVE); COCAINE SCREEN URINE NEGATIVE (NEGATIVE); METHAMPHETAMINE SCREEN URINE S POSITIVE (NEGATIVE); OPIATE SCREEN URINE POSITIVE (NEGATIVE)
[2019-03-11 17:39] LABS: BARBITURATE SCREEN URINE NEGATIVE (NEGATIVE); METHADONE STAT NEGATIVE (NEGATIVE); OXYCODONE STAT NEGATIVE (NEGATIVE); PROPOXYPHENE STAT NEGATIVE (NEGATIVE); TRICYCLIC ANTIDEPRESSANTS SCRE NEGATIVE (NEGATIVE)
[2019-03-11] MEDS ORDERED: NAPR-1071 PO (18:02)
[2019-03-11 18:12] VITALS: BP 175/98
== END 2019-03-11 18:12 | disposition home or self-care (01) ==
LOC: EDUNIT# 16:38 → ER FS 16:39
DX: M54.2 Cervicalgia (principal); F15.10 Other stimulant abuse, uncomplicated; G89.4 Chronic pain syndrome; J45.909 Unspecified asthma, uncomplicated; F41.9 Anxiety disorder, unspecified; F32.9 Major depressive disorder, single episode, unspecified; F17.200 Nicotine dependence, unspecified, uncomplicated; Z90.89 Acquired absence of other organs; Z79.52 Long term (current) use of systemic steroids
CPT/HCPCS: 80306; 84703; 87804; 96372